=== PATIENT | male | born 1930 | race Caucasian/White ===

== ENCOUNTER 2017-03-21 05:20 | Observation (INO) | payer MEDICARE ==
[2017-03-21] MEDS ORDERED: NS 0.9% 1000 ML* 1,000 ML IV ONE (06:01)
[2017-03-21 06:17] LABS: Hematocrit 37 % (42-52); Hemoglobin 12.8 g/dl (14.0-18.0); Mean Corpuscular HGB Conc 34 g/dl (31-36); Mean Corpuscular Hemoglobin 33 pg (27-31); Mean Corpuscular Volume 97 fL (80-94); Mean Platelet Volume 8 um3 (7.4-10.4); Red Blood Count 3.83 10^6/ul (4.0-5.4); Red Cell Distribution Width 14 % (10.5-15); White Blood Count 11.9 10^3/ul (3.5-10.8)
[2017-03-21 06:34] LABS: Albumin 3.8 g/dL (3.2-5.2); BUN/Creatinine Ratio 19.8 (8-20); Calcium 8.5 mg/dL (8.6-10.3); EGFR African American 77.1 (>60); Globulin 2.5 g/dL (2-4); Potassium 3.9 mmol/L (3.5-5.0); Total Bilirubin 0.6 mg/dL (0.2-1.0); Total Protein 6.3 g/dL (6.4-8.9)
[2017-03-21 06:39] LABS: Troponin I 0.04 ng/mL (<0.04)
--- NOTE | 2017-03-21 06:52 | ED ---
Sunny Christian Tiffany, scribmaeve for Chris Schafer on 03/21/17 at 0604 . GI/ HPI - HPI Summary HPI Summary: This patient is an 86 year old M presenting to [facility] accompanied by with a chief complaint of unable to urinate since last night. The patient rates the pain 5/10 in severity. Symptoms aggravated by nothing. Symptoms alleviated by nothing. The last time he urinated was 20:00 last evening. Patient reports right flank pain, fever, and vomiting. Patient denies left flank pain. - History of Current Complaint Chief Complaint: EDUrogenitalProblems Time Seen by Provider: 03/21/17 05:23 Stated Complaint: UNABLE TO URINATE/FEVER Hx Obtained From: Patient Onset/Duration: Started Days Ago - Last night, Still Present Current Severity: Moderate Pain Intensity: 5 Associated Signs and Symptoms: Positive: Other: - Additional Pertinent History Primary Care Physician: [id number] - Allergy/Home Medications Allergies/Adverse Reactions: Allergies Allergy/AdvReac Type Severity Reaction Status Date / Time Atorvastatin [From Lipitor] AdvReac muscle Verified 08/21/15 22:49 cramping Erythromycin AdvReac all over Verified 08/21/15 22:49 body pain Metoclopramide AdvReac hand Verified 06/18/14 22:24 tremors PACEMAKER- NO MRIs AdvReac NO Uncoded 08/21/15 22:49 MRIs-PACEMAKER PMH/Surg Hx/FS Hx/Imm Hx Previously Healthy: No Endocrine/Hematology History: Reports: Hx Anticoagulant Therapy - Has been on Plavix and Aspirin, Hx Blood Transfusions Denies: Hx Blood Disorders, Hx Bone Marrow Disease, Hx Diabetes, Hx Systemic Lupus Erythematosus, Hx Sickle Cell Disease, Hx Thyroid Disease, Hx Anemia, Hx Unexplained Bleeding, Other Endocrine/Hematological Disorders Cardiovascular History: Reports: Hx Angina, Hx Auto Implanted Cardiovert Defib, Hx Cardiac Arrest, Hx Congestive Heart Failure, Hx Coronary Artery Disease, Hx Hypercholesterolemia, Hx Hypotension, Hx Hypertension, Hx Myocardial Infarction , Hx Pacemaker/ICD, Other Cardiovascular Problems/Disorders Denies: Hx Aneurysm, Hx Angioplasty, Hx Cardiomegaly, Hx Congenital Heart Disease, Hx Deep Vein Thrombosis, Hx Embolism, Hx Peripheral Vascular Disease, Hx Rheumatic Fever, Hx Syncope, Hx Valvular Heart Disease Respiratory History: Reports: Hx Chronic Bronchitis, Hx Pneumonia, Hx Pulmonary Edema, Hx Seasonal Allergies, Other Respiratory Problems/Disorders - PNA Denies: Hx Asthma, Hx Chronic Obstructive Pulmonary Disease (COPD), Hx Cystic Fibrosis, Hx Lung Cancer, Hx Pleural Effusion, Hx Pulmonary Embolism, Hx Sleep Apnea GI History: Reports: Hx Gall Bladder Disease - cholecystectomy, Hx Gastroesophageal Reflux Disease, Hx Hiatal Hernia, Other GI Disorders - inability to digest food Denies: Hx Cirrhosis, Hx Crohn's Disease, Hx Diverticulosis, Hx Gastrointestinal Bleed, Hx Irritable Bowel, Hx Jaundice, Hx Obstructive Bowel, Hx Ileostomy, Hx Pyloric Stenosis, Hx Ulcer History: Reports: Hx Benign Prostatic Hyperplasia, Other Problems/ Disorders - prostate surgery Denies: Hx Acute Renal Failure, Hx Chronic Renal Failure, Hx Dialysis, Hx Kidney Infection, Hx Kidney Stones, Hx Renal Disease Musculoskeletal History: Reports: Hx Arthritis, Hx Back Problems - herniated disk, Hx Congenital Bone Abnormalities - upper back, Hx Orthopedic Injury - left knee replaced, Other Musculoskeletal History - Total Knee Replacement Left, Denies: Hx Rheumatoid Arthritis, Hx Bursitis, Hx Fibromyalgia, Hx Gout, Hx Osteoporosis, Hx Scoliosis, Hx Tendonitis Sensory History: Reports: Hx Legally Blind, Hx Macular Degeneration, Hx Vision Problem Denies: Hx Cataracts, Hx Contacts or Glasses, Hx Eye Injury, Hx Eye Prosthesis, Hx Glaucoma, Hx Deafness, Hx Hearing Aid, Hx Hearing Problem, Other Sensory Impairments Opthamlomology History: Reports: Hx Legally Blind, Hx Macular Degeneration, Hx Vision Problem Denies: Hx Cataracts, Hx Contacts or Glasses, Hx Eye Injury, Hx Eye Prosthesis, Hx Glaucoma, Other Sensory Impairments Neurological History: Reports: Other Neuro Impairments/Disorders - laminectomy Denies: Hx Dementia, Hx Developmental Delay, Hx Headaches, Hx Migraine, Hx Nerve Disease, Hx Seizures, Hx Spinal Cord Injury, Hx Transient Ischemic Attacks (TIA) Psychiatric History: Denies: Hx Anxiety, Hx Attention Deficit Hyperactivity Disorder, Hx Eating Disorder, Hx Depression, Hx Panic Disorder, Hx Post Traumatic Stress Disorder, Hx Inpatient Treatment, Hx Community Mental Health Tx, Hx Schizophrenia, Hx Bipolar Disorder, Hx Suicide Attempt, Hx Substance Abuse, Other Psychiatric Issues/Disorders - Cancer History Cancer Type, 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 cholecystectomy 1994, hiatal hernia , CABG, Back Sx, Prostate Sx, Stents, Cardiac cath with bypass Hx Anesthesia Reactions: No Infectious Disease History: No Infectious Disease History: Denies: Hx Clostridium Difficile, Hx Hepatitis, Hx Human Immunodeficiency Virus (HIV), Hx of Known/Suspected MRSA, Hx Shingles, Hx Tuberculosis, Hx Known/ Suspected VRE, Traveled Outside the [place] in Last 30 Days - Family History Known Family History: Positive: Cardiac Disease - In both brothers - Social History Alcohol Use: None Hx Substance Use: No Substance Use Type: Reports: None Hx Tobacco Use: No Smoking Status (MU): Never Smoked Tobacco Review of Systems Positive: Fever Positive: Vomiting Positive: other - Unable to urinate Positive: Other - right flank pain; NEGATIVE: left flank pain All Other Systems Reviewed And Are Negative: Yes Physical Exam - Summary Physical Exam Summary: Appearance: Well appearing, no pain distress Skin: warm, dry, reflects adequate perfusion Head/face: normal Eyes: EOMI, ALTHEA ENT: normal Neck: supple, non-tender Respiratory: CTA, breath sounds present Cardiovascular: RRR, pulses symmetrical Abdomen: RLQ tenderness Bowel: present Musculoskeletal: normal, strength/ROM intact Neuro: normal, sensory motor intact, A&Ox3 Triage Information Reviewed: Yes Vital Signs On Initial Exam: Initial Vitals Temp Pulse Resp BP Pulse Ox 98 F 61 16 121/56 95 03/21/17 05:27 03/21/17 05:27 03/21/17 05:27 03/21/17 05:27 03/21/17 05:27 Vital Signs Reviewed: Yes Diagnostics - Vital Signs Vital Signs Temp Pulse Resp BP Pulse Ox 03/21/17 05:27 98 F 61 16 121/56 95 - Laboratory Lab Results: Lab Results 03/21/17 03/21/17 03/21/17 Range/Units 05:58 05:58 05:58 WBC 11.9 H (3.5-10.8) 10^3/ul RBC 3.83 L (4.0-5.4) 10^6/ul Hgb 12.8 L (14.0-18.0) g/dl Hct 37 L (42-52) % MCV 97 H (80-94) fL MCH 33 H (27-31) pg MCHC 34 (31-36) g/dl RDW 14 (10.5-15) % Plt Count 233 (150-450) 10^3/ul MPV 8 (7.4-10.4) um3 Neut % (Auto) 87.3 H (38-83) % Lymph % (Auto) 5.6 L (25-47) % Linn % (Auto) 6.7 (1-9) % Eos % (Auto) 0.1 (0-6) % Baso % (Auto) 0.3 (0-2) % Absolute Neuts (auto) 10.4 H (1.5-7.7) 10^3/ul Absolute Lymphs (auto) 0.7 L (1.0-4.8) 10^3/ul Absolute Monos (auto) 0.8 (0-0.8) 10^3/ul Absolute Eos (auto) 0 (0-0.6) 10^3/ul Absolute Basos (auto) 0 (0-0.2) 10^3/ul Absolute Nucleated RBC 0 10^3/ul Nucleated RBC % 0 INR (Anticoag Therapy) 2.29 H (0.77-1.02) APTT 41.4 H (26.0-36.3) seconds Sodium 132 L (133-145) mmol/L Potassium 3.9 (3.5-5.0) mmol/L Chloride 105 (101-111) mmol/L Carbon Dioxide 20 L (22-32) mmol/L Anion Gap 7 (2-11) mmol/L BUN 23 (6-24) mg/dL Creatinine 1.16 (0.67-1.17) mg/dL Est GFR ( Amer) 77.1 (>60) Est GFR (Non-Af Amer) 60.0 (>60) BUN/Creatinine Ratio 19.8 (8-20) Glucose 112 H (70-100) mg/dL Lactic Acid (0.5-2.0) mmol/L Calcium 8.5 L (8.6-10.3) mg/dL Total Bilirubin 0.60 (0.2-1.0) mg/dL AST 23 (13-39) U/L ALT 12 (7-52) U/L Alkaline Phosphatase 65 (34-104) U/L Troponin I 0.04 H* (<0.04) ng/mL Total Protein 6.3 L (6.4-8.9) g/dL Albumin 3.8 (3.2-5.2) g/dL Globulin 2.5 (2-4) g/dL Albumin/Globulin Ratio 1.5 (1-3) Lipase 21 (11.0-82.0) U/L 03/21/17 Range/Units 05:58 WBC (3.5-10.8) 10^3/ul RBC (4.0-5.4) 10^6/ul Hgb (14.0-18.0) g/dl Hct (42-52) % MCV (80-94) fL MCH (27-31) pg MCHC (31-36) g/dl RDW (10.5-15) % Plt Count (150-450) 10^3/ul MPV (7.4-10.4) um3 Neut % (Auto) (38-83) % Lymph % (Auto) (25-47) % Linn % (Auto) (1-9) % Eos % (Auto) (0-6) % Baso % (Auto) (0-2) % Absolute Neuts (auto) (1.5-7.7) 10^3/ul Absolute Lymphs (auto) (1.0-4.8) 10^3/ul Absolute Monos (auto) (0-0.8) 10^3/ul Absolute Eos (auto) (0-0.6) 10^3/ul Absolute Basos (auto) (0-0.2) 10^3/ul Absolute Nucleated RBC 10^3/ul Nucleated RBC % INR (Anticoag Therapy) (0.77-1.02) APTT (26.0-36.3) seconds Sodium (133-145) mmol/L Potassium (3.5-5.0) mmol/L Chloride (101-111) mmol/L Carbon Dioxide (22-32) mmol/L Anion Gap (2-11) mmol/L BUN (6-24) mg/dL Creatinine (0.67-1.17) mg/dL Est GFR ( Amer) (>60) Est GFR (Non-Af Amer) (>60) BUN/Creatinine Ratio (8-20) Glucose (70-100) mg/dL Lactic Acid 0.9 (0.5-2.0) mmol/L Calcium (8.6-10.3) mg/dL Total Bilirubin (0.2-1.0) mg/dL AST (13-39) U/L ALT (7-52) U/L Alkaline Phosphatase (34-104) U/L Troponin I (<0.04) ng/mL Total Protein (6.4-8.9) g/dL Albumin (3.2-5.2) g/dL Globulin (2-4) g/dL Albumin/Globulin Ratio (1-3) Lipase (11.0-82.0) U/L Result Diagrams: 03/21/17 05:58 03/21/17 05:58 Lab Statement: Any lab studies that have been ordered have been reviewed, and results considered in the medical decision making process. - EKG 06:29 Cardiac Rate: NL EKG Interpretation: 60 BPM. Pace rhythm GIGU Course/Dx - Course Course Of Treatment: This patient is an 86 year old M presenting to [facility] accompanied by with a chief complaint of unable to urinate since last night. An EKG reveals pace rhythm. Bloodwork/UA obtained. CT Abd/Pel results pending. Patient will be signed out to attending physician at shift change. - Diagnoses Differential Diagnoses - Male: Diverticulitis, Appendicitis, Renal Calculi, Urinary Tract Infection Provider Diagnoses: Abdominal pain Discharge - Discharge Plan Condition: Fair Disposition: OTHER Discharge Disposition Comment: Patient is signed out at shift change, awaiting CT Abd/Pel results. Referrals: Duy Peck MD [Primary Care Provider] - The documentation as recorded by the Sunny tejada Tiffany accurately reflects the service I personally performed and the decisions made by , Chris Schafer.
[2017-03-21] MEDS ORDERED: Iohexol 300* (CONTRAST) 10 ML SDV IV ONE (06:59)
[2017-03-21 09:26] LABS: Urine Bacteria Absent (Absent); Urine Bilirubin Negative (Negative); Urine Glucose Negative (Negative); Urine Nitrite Negative (Negative)
--- NOTE | 2017-03-21 10:04 | RAD ---
CLINICAL HISTORY: Right lower quadrant tenderness COMPARISON: March 31, 2016 TECHNIQUE: Multiple contiguous axial CT scans were obtained of the abdomen and pelvis after the administration of intravenous contrast. Coronal and sagittal multiplanar reformations are submitted for review. Oral contrast was administered. Delayed images were obtained through the abdomen and pelvis. FINDINGS: LUNG BASES: The lung bases are clear. LIVER: The liver is normal in shape, size, contour, and attenuation. BILE DUCTS: There is no intrahepatic or extrahepatic biliary dilatation. GALLBLADDER: The gallbladder is not visualized. Surgical clips are noted in the gallbladder fossa. PANCREAS: The pancreas is normal, without mass or ductal dilatation. SPLEEN: Normal in size and appearance. UPPER GI TRACT: Evaluation of the gastrointestinal tract is limited by incomplete gastric distention. There is post surgical change to the upper GI tract; the patient appears to be status post gastrojejunostomy, though the duodenum and proximal jejunum are patent and filled with contrast. There is mild distention of the proximal jejunum without obstruction. Oral contrast is noted distally to the colon SMALL BOWEL AND MESENTERY: As noted above, there is mild distention of the proximal jejunum without obstruction. COLON: There are multiple diverticula of the sigmoid colon. There is no pericolonic inflammatory change. There is a tubular, vermiform, hollow viscus that is blind ending, and originates from the cecum, consistent with a normal appendix. There is no periappendiceal inflammatory change. This is best seen on coronal images 48 through 52 ADRENALS: Normal bilaterally. KIDNEYS: There is a simple renal cysts on the right. 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 BLADDER: The bladder is smooth in contour. PELVIC ORGANS: The prostate gland is normal. The seminal vesicles are symmetric. AORTA: There is calcific atherosclerotic disease of the abdominal aorta and its branches, without aneurysmal dilatation IVC: Unremarkable LYMPH NODES: There is no lymphadenopathy by size criteria. ABDOMINAL WALL: There is no evidence for abdominal wall hernia. BONES AND SOFT TISSUES: Degenerative changes are noted of the spine OTHER: None IMPRESSION: 1. THERE IS POSTSURGICAL CHANGE TO THE UPPER GI TRACT. THERE IS MILD DISTENTION OF THE PROXIMAL JEJUNUM WITHOUT OBSTRUCTION. ORAL CONTRAST REACHES THE COLON. 2. ATHEROSCLEROSIS. 3. DIVERTICULOSIS
[2017-03-21] MEDS ORDERED: Ketorolac INJ* 30 MG/ML 1 ML VIAL IV ONE (11:23)
[2017-03-21] MEDS ORDERED: Ondansetron INJ* 2 MG/ML VIAL IV ONE (11:23)
[2017-03-21] MEDS ORDERED: Acetaminophen TAB* 325 MG PO PRN (13:27)
[2017-03-21] MEDS ORDERED: Nitroglycerin TAB 0.4 MG* 0.4 MG TAB SL PRN (13:42)
[2017-03-21] MEDS ORDERED: PROCHLORPERAZINE INJ 5 MG/ML 2 ML VIAL IV PRN (13:52)
--- NOTE | 2017-03-21 13:58 | RAD ---
HISTORY: Right flank pain COMPARISONS: January 12, 2017, March 23, 2016 VIEWS: 2: Frontal and lateral views of the chest. FINDINGS: CARDIOMEDIASTINAL SILHOUETTE: The cardiomediastinal silhouette is normal. ANISH: The anish are normal. PLEURA: The costophrenic angles are sharp. No pleural abnormalities are noted. LUNG PARENCHYMA: There is hyperinflation with flattening of the diaphragm and expansion of the AP diameter of the chest. ABDOMEN: The upper abdomen is clear. There is no subphrenic gas. BONES AND SOFT TISSUES: There is diffuse osteopenia. The patient is status post median sternotomy. OTHER: A left-sided pacemaker is noted. The configuration of the pacemaker leads is stable from multiple prior examinations. IMPRESSION: HYPERINFLATION. NO ACTIVE CARDIOPULMONARY DISEASE.
[2017-03-21] MEDS ORDERED: NS 0.9% 1000 ML* 1,000 ML IV SCH (14:00)
[2017-03-21] MEDS ORDERED: Amiodarone TAB* 200 MG PO SCH (14:00)
[2017-03-21] MEDS: Carvedilol TAB* 25 MG PO SCH ×2 (15:39→20:27)
--- NOTE | 2017-03-21 16:17 | ECHO ---
Patient: QUYEN GUTIERREZ Rec#: [id number] : 1930 Date: 03/21/2017 Age: 86y Height: 160.02 cm / 63.0 in Weight: 63.5 kg / 140.0 lbs Sex: M BSA: 1.66 Room#: 446 Admit Date#: 03/21/2017 Type: Inpatient Referring: Sonia Bryant Reading: Phoenix Ramos MD Public Relations Assistant: Perla Iraheta,MOLLYCS,RDMS CC: Duy Peck MD CC: Maximilian Guevara MD Transthoracic Echocardiogram Indication: Elevated Trop, Cardiomyopathy BP: 121/31 HR: 60 Rhythm: Paced Findings History: CAD, [place], CABG, PCI, HTN, HLD, CHF, AICD Technical Comments: The study quality is fair. Left Ventricle: The left ventricular chamber size is normal. Moderate concentric left ventricular hypertrophy is observed. Global left ventricular wall motion and contractility are within normal limits. Left ventricular systolic function is at the lower limits of normal. The estimated ejection fraction is 50-55%. There is an E to A reversal in the mitral valve flow pattern suggestive of diastolic dysfunction. Left Atrium: The left atrium is mildly dilated. Right Ventricle: The right ventricular chamber size and systolic function are within normal limits. The right ventricle wall thickness is mildly increased. A pacemaker wire is visualized in the right ventricle. Right Atrium: The right atrial cavity size is normal. A pacemaker wire is visualized in the right atrium. Aortic Valve: The aortic valve is trileaflet. The aortic valve leaflets are mildly thickened. There is aortic annular calcification. There is trace to mild aortic regurgitation. There is mild aortic stenosis. The mean gradient of the aortic valve is 13 mmHg. The aortic valve area, by VTI's, is calculated at 1.5 cm2. Mitral Valve: The mitral valve leaflets are mildly thickened. There is a trace of mitral regurgitation. There is no evidence of mitral stenosis. Tricuspid Valve: The tricuspid valve leaflets are normal. There is trace to mild tricuspid regurgitation. No pulmonary hypertension is noted. Pulmonic Valve: The pulmonic valve appears normal. There is trace to mild pulmonic regurgitation. Pericardium: There is no significant pericardial effusion. Aorta: The aortic root appears normal. There is no dilatation of the aortic arch. Pulmonary Artery: The main pulmonary artery is not well visualized. Venous: The inferior vena cava is not visualized. Conclusions Left ventricular systolic function is at the lower limits of normal. The estimated ejection fraction is 50-55%. Moderate concentric left ventricular hypertrophy is observed. The right ventricular chamber size and systolic function are within normal limits. A pacemaker wire is visualized in the right ventricle. The aortic valve leaflets are mildly thickened. There is mild aortic stenosis. The mean gradient of the aortic valve is 13 mmHg. There is trace to mild aortic regurgitation. There is a trace of mitral regurgitation. There is trace to mild tricuspid regurgitation. No pulmonary hypertension is noted. There is no significant pericardial effusion. Compared to study of 10/07/13, the LV function is much better. The mild is new Measurements Name Value Normal Range RVIDd (AP) 2D 3.2 cm (0.9 - 2.6) RVDdMajor (2D) 4.2 cm (2.2 - 4.4) RAd ISD 4CH 4.5 cm (3.4 - 4.9) RA (A4C)W 4.7 cm (2.9 - 4.6) IVSd (2D) 1.4 cm (0.6 - 1) LVPWd (2D) 1.4 cm (0.6 - 1) LVIDd (2D) 4.7 cm (3.6 - 5.4) LVIDs (2D) 3.5 cm - LV FS (2D) 25 % (25 - 45) Aortic Annulus 2 cm (1.4 - 2.6) Ao root diameter (2D) 3.1 cm (2.1 - 3.5) Ascending Ao 2.8 cm (2.1 - 3.4) Aortic arch 2.7 cm (1.8 - 3.4) LA dimension (AP) 2D 4 cm (2.3 - 3.8) LAd ISD 4CH 6.1 cm (2.9 - 5.3) LA ISD 4CH W 5.5 cm (2.5 - 4.5) Name Value Normal Range LA ESV SP 4CH (A/L) 95.89 ml - LA ESV SP 2CH (A/L) 29.84 ml - LA ESV BP (A/L) 66.22 ml - LA ESV BP (A/L) index 40 ml/m2 - LA ESV SP 4CH (MOD) 78.54 ml - LA ESV SP 2CH (MOD) 27.6 ml - Name Value Normal Range MV E-wave Vmax 0.7 m/sec - MV deceleration time 170 msec - MV A-wave Vmax 0.9 m/sec - MV E:A ratio 0.8 ratio - Name Value Normal Range AV Vmax 2.3 m/sec - AV VTI 48 cm - AV peak gradient 21 mmHg - AV mean gradient 13 mmHg - LVOT diameter 2 cm - LVOT Vmax 1 m/sec - LVOT VTI 23.5 cm - LVOT peak gradient 4 mmHg - LVOT mean gradient 2.3 mmHg - DOI (VTI) 0.5 ratio - JENNIE (continuity Vmax) 1.4 cm2 - JENNIE (continuity VTI) 1.5 cm2 - AR PHT 417.96 msec - AR peak gradient 36.61 mmHg - TEZ Vmax 0.7 m/sec - Name Value Normal Range TR Vmax 2.4 m/sec - TR peak gradient 23 mmHg - RAP 8 mmHg - RVSP 31 mmHg - Name Value Normal Range PV Vmax 0.8 m/sec - PV peak gradient 2.6 mmHg -
[2017-03-21] MEDS ORDERED: Warfarin TAB(*) 2.5 MG PO SCH (17:00)
--- NOTE | 2017-03-21 17:11 | HP ---
HISTORY AND PHYSICAL: DATE OF ADMISSION: 03/21/17 PROVIDER: Sonia Bryant NP PRIMARY CARE PROVIDER: Dr. Peck. * Attending Physician while in the Hospital: Conrado Jauregui MD (DICTATED BY SONIA BRYANT NP CHIEF COMPLAINT: Right flank pain, nausea. HISTORY OF PRESENT ILLNESS: Mr. Rodriguez is an 86-year-old male that presented to emergency room today for evaluation of difficulty urinating and right flank pain accompanied with some nausea and vomiting. Mr. Rodriguez reports that he has had right flank pain x1 week and he started with 2 episodes of vomiting yesterday and 1 episode today. He has a past medical history of ischemic cardiomyopathy. He is status post CABG with multiple stents. He does have a pacemaker. He does have a history of systolic heart failure. He does have a history of paroxysmal atrial fibrillation, for which he is on Coumadin for anticoagulation. He does report that he has a recent history of pneumonia which he states that he had for the month of January 2017. The patient states that he was unable to urinate and that is what brought him to the emergency room today. He does currently report that he is urinating fine and does have some residual right flank pain. He does report that he did have some nausea and did vomit while in the emergency room. He denies diarrhea. He denies chest pain. Denies shortness of breath. Denies cough. Denies chills. He does report that he has felt feverish over the last 2 days. He does report that he does have right lower abdominal pain and left lower abdominal pain. He denies any problems with constipation. States his last normal BM was yesterday. We were asked by the emergency room to evaluate this patient for admission due to right flank pain and elevated troponin. PAST MEDICAL HISTORY: 1. Ischemic cardiomyopathy. 2. Hypertension. 3. Hyperlipidemia. 4. GERD. 5. Paroxysmal atrial fibrillation, on Coumadin. 6. He is legally blind. 7. Congestive heart failure. PAST SURGICAL HISTORY: 1. Bypass in 2007. 2. Left total knee replacement. 3. Multiple cardiac stents. 4. Hiatal hernia repair x2. 5. Tonsillectomy. 6. Pacemaker. 7. Back surgery. 8. Cholecystectomy. HOME MEDICATIONS: 1. Amiodarone 100 mg. 2. Nitroglycerin 0.4 mg patch daily. 3. Reglan 10 mg p.o. daily. 4. Protonix 40 mg p.o. daily. 5. Zofran 4 mg p.o. q.6 hours p.r.n. 6. Nitroglycerin 0.4 sublingual q.5 minutes p.r.n. chest pain. 7. Inspra 12.5 mg p.o. daily. 8. Carvedilol 12.5 mg p.o. t.i.d. 9. Aspirin 81 mg p.o. daily. 10. Coumadin 5 mg p.o. Tuesday, , and Tuesday and Coumadin 2.5 mg Tuesday, Tuesday, Tuesday, and Tuesday. 11. Crestor 10 mg p.o. at h.s. ALLERGIES: 1. ATORVASTATIN. 2. ERYTHROMYCIN. 3. REGLAN. 4. He does have a pacemaker, so no MRIs. FAMILY HISTORY: Brother is at age 56 from an [facility]. No other medical history. SOCIAL HISTORY: The patient denies smoking. Denies alcohol or drug use. Surrogate decision maker is his , Yarelis Rodriguez. Her phone number is [phone]. REVIEW OF SYSTEMS: There is no documented fever. There has been no significant weight change. There was no double vision. There was no ear drainage. He denies any rhinorrhea. There is no sore throat. He denies having any chest pain. Denies shortness of breath. No nocturnal dyspnea. He does complain of right lower abdominal pain and right flank pain. He also complains of mild tenderness to the left lower abdomen. He does report nausea and does report he has vomited x3 yesterday and today. He does report that he was having difficulty urinating, which has resolved. There were no seizures, no loss of consciousness. No pruritus. No skin ulcerations. Review of 14 systems was completed and all others were negative. PHYSICAL EXAMINATION GENERAL: At this time, Mr. Rodriguez is an 86-year-old man, appears well, sitting on the stretcher. His cheeks are flushed. He does report that he has some mild right flank pain rated at 2. He states that it is sharp and constant. VITAL SIGNS: Blood pressure 127/44; heart rate is 60, he has a paced rhythm; oxygen saturation is 94%; respirations are 16; temp is 99.2 tympanic. HEENT: Head is atraumatic, normocephalic. Eyes: EOMs are intact. Sclerae anicteric, not pale. Oral mucosa appears to be mildly dry. No oropharyngeal erythema. NECK: Supple. LUNGS: Clear to auscultation bilaterally. No wheezes, rales, or rhonchi. CARDIAC: S1, S2. He has regular rate and rhythm. There are no rubs or gallops. ABDOMEN: Soft, flat. He does complain of tenderness to right lower quadrant and right CVA tenderness. Bowel sounds are present x4. He does also complain of some left lower quadrant abdominal pain on palpation. EXTREMITIES: Pulses are +2 throughout. He is moving all extremities. Strength is 5/5. There is no edema. NEUROLOGIC: He is awake. He is alert and oriented x3. Speech is clear. There is no focal deficits noted. SKIN: Intact. DIAGNOSTIC STUDIES/LABORATORY DATA: WBCs are 11.9, RBCs 3.83, hemoglobin 12.8 , hematocrit is 37, platelet count is 233,000. INR was 2.29. A PTT was 41.4. Sodium was 132, potassium 3.9, chloride 105, carbon dioxide was 20, BUN 23, creatinine 1.16, glucose was 112, lactic acid was 0.9, calcium was 8.5. AST 23 , ALT 12, alk phos is 65. Initial troponin at 0558 was 0.04. Repeat troponin at 11:30 was 0.08. Lipase is 21. Urine was clear. pH was 5.0. Specific gravity was 1.011. Urine protein was negative. Ketones were negative. Urine blood was +2. Urine nitrites were negative. Bilirubin was negative. Urobili was negative. Urine leukocyte esterase was negative. Urine WBC's was trace. Urine blood RBC's was 1+. Urine bacteria was absent. Urine glucose was also negative. EKG does show A-paced rhythm at a rate of 60. Chest x-ray was obtained. Radiology impression: Hyperinflation. No active cardiopulmonary disease. He did have a CT of the abdomen and pelvis. Radiology interpretation as follows : 1. There is postsurgical changes in the upper GI tract. There is mild distention of the proximal jejunum without obstruction. Oral contrast reaches the colon. Kidneys, there is a simple renal cyst on the right. 2. Atherosclerosis. 3. Diverticulosis. ASSESSMENT AND PLAN: Mr. Rodriguez is an 86-year-old male that presented to the emergency room today with complaints of difficulty urinating and right flank pain with nausea and vomiting. We were asked to evaluate due to his elevated troponin and right flank pain. He will be admitted under observation status for: 1. Right-sided flank pain. We will monitor. If the patient develops elevated temperature or if flank pain increases, we can consider placing the patient on antibiotics. Can also consider doing a KUB to look for a renal stone. We will give him gentle hydration with normal saline at 100 cc an hour. 2. Elevated troponin. The patient has a history of ischemic cardiomyopathy. He does have a pacemaker. We will obtain and trend serial troponins. I will get an echocardiogram. I suspect that this could be related to the demand of passing a renal calculi. 3. Nausea. We will continue to treat his nausea. We can give him Compazine p.r.n. as needed for nausea. 4. Hypertension. We will continue him on Coreg. 5. History of atrial fibrillation. We will continue on his amiodarone and Coreg. 6. History of congestive heart failure. We will continue on Inspra daily and monitor for shortness of breath. 7. Gastroesophageal reflux disease. We will continue on his Protonix p.o. daily. 8. FEN. We will place him on a clear liquid diet and advance as tolerated. 9. Code status. He is a DNR/DNI. 10. DVT prophylaxis. His risk assessment is high. He is currently on Coumadin. We will continue on Coumadin and monitor his INR level. His current INR is 2.29. We will repeat an INR in the a.m. If it is subtherapeutic, we will consider heparin subcu until the therapeutic level is met. He will admitted under observation status. TIME SPENT: Time spent on this admission was 60 minutes, greater than half the time was spent [id number] with the patient obtaining my history and physical; the other half of the time was spent going over the plan of care with the patient and implementing the plan of care. I did discuss my plan with my attending, Dr. Conrado Jauregui, and he is in agreement. SONIA RAKESH, BUSINESS LAW PROFESSOR [id number]/[facility] #: [id number] MTDJuan
[2017-03-21] MEDS ORDERED: Morphine INJ* 4 MG/ML 1 ML CARPUJECT IV PRN (18:00)
--- NOTE | 2017-03-21 18:18 | ED ---
Abraham Christian Angela, scribed for Teodoro Watts MD on 03/21/17 at 0711 . Progress - Progress Note Progress Note: This pt was signed out by Dr. Schafer, pending disposition, awaiting CT abdomen/ pelvis. Pt is an 86 y/o male presenting to [facility] c/o inability to void since last night. PMHx includes HTN, high cholesterol, multiple MN, pacemaker, afib. Mr. Rodriguez has had continued right flank pain here in the ED. CT did not reveal the source and, worrisomely, his troponin was a little elevated and doubled in the 3 hours between tests. i asked the hospitalists to consult on him. - Results/Orders Results/Orders: CT abdomen/pelvis, as read per radiologist: IMPRESSION: 1. There is postsurgical change to the upper GI tract. There is mild distention of the proximal jejunum without obstruction. Oral contrast reaches the colon. 2. Atherosclerosis. 3. Diverticulosis. Dr. Watts has reviewed this radiology report. Re-Evaluation - Re-Evaluation First Eval Re-Evaluation Time: 11:12 Comment: I reviewed the CT results with the pt. Course/Dx - Diagnoses Provider Diagnoses: Abdominal pain, Troponin level elevated The documentation as recorded by the Abraham tejada Angela accurately reflects the service I personally performed and the decisions made by me, Teodoro Watts MD.
[2017-03-21] MEDS: Ketorolac INJ* 15 MG/ML 1 ML VIAL IV PUSH PRN (19:17)
[2017-03-21] MEDS: ROSUVASTATIN 10 MG PO SCH (20:28)
[2017-03-21] MEDS: Omeprazole CAP* 20 MG PO SCH (21:57)
[2017-03-22 06:24] LABS: Hematocrit 34 % (42-52); Hemoglobin 11.6 g/dl (14.0-18.0); Mean Corpuscular HGB Conc 35 g/dl (31-36); Mean Corpuscular Hemoglobin 34 pg (27-31); Mean Corpuscular Volume 98 fL (80-94); Mean Platelet Volume 8 um3 (7.4-10.4); Red Blood Count 3.42 10^6/ul (4.0-5.4); Red Cell Distribution Width 14 % (10.5-15); White Blood Count 6.4 10^3/ul (3.5-10.8)
[2017-03-22 06:41] LABS: BUN/Creatinine Ratio 13.6 (8-20); Calcium 8.2 mg/dL (8.6-10.3); EGFR Non-African American 63.8 (>60); Magnesium 2.3 mg/dL (1.9-2.7); Potassium 3.8 mmol/L (3.5-5.0)
[2017-03-22] MEDS ORDERED: Omeprazole CAP* 20 MG PO SCH (07:30)
[2017-03-22] MEDS ORDERED: Aspirin EC Low Dose* 81 MG TAB.EC PO SCH (09:00)
[2017-03-22] MEDS ORDERED: Nitroglycerin 0.4 MG/HR PATCH* (10 MG) TRANSDERM SCH (09:00)
[2017-03-22] MEDS ORDERED: EPLERONONE 25 MG PO SCH (09:00)
--- NOTE | 2017-03-22 09:48 | PN ---
Subjective Date of Service: 03/22/17 Interval History: Patient seen and examined at bedside. Denies fever, chills, shortness of breath , chest discomfort, N/V/D, dysuria. Pt reports difficulty urinating and continued but improved right flank pain. Tele: Paced, 60. Family History: Unchanged from Admission Social History: Unchanged from Admission Past Medical History: Unchanged from Admission Objective Active Medications: Acetaminophen (Tylenol Tab*) 650 mg PO Q4H PRN Reason: FEVER/PAIN Amiodarone HCl (Cordarone Tab*) 100 [facility] Aspirin (Aspirin Ec Low Dose*) 81 mg PO [facility]ILY [facility] Carvedilol (Coreg Tab*) 12.5 mg PO TID [facility] Eplerenone (Inspra (Nf)) 12.5 mg PO [facility]ILY [facility] Ketorolac Tromethamine (Toradol Inj*) 15 mg IV PUSH Q6H PRN Reason: PAIN Morphine Sulfate (Morphine Inj (Syringe)*) 4 mg IV Q4H PRN Reason: PAIN - MODERATE TO SEVERE Nitroglycerin (Nitroglycerin 10 Mg Patch*) 1 patch TRANSDERM [facility]ILY [facility] Nitroglycerin (Nitroglycerin Tab 0.4 Mg*) 0.4 mg SL Q5M PRN Reason: ANGINA Omeprazole (Prilosec Cap*) 20 mg PO [facility] Pharmacy Profile Note (Coumadin Daily Reminder*) 1 note FOLLOW UP [facility] Prochlorperazine Edisylate (Compazine Inj*) 5 mg IV Q6H PRN Reason: NAUSEA/ VOMITING Rosuvastatin Calcium (Crestor (Nf)) 10 mg PO [facility] Warfarin Sodium (Coumadin Tab(*)) 2.5 mg PO SuMoWeFr@[facility]00 [facility] Warfarin Sodium (Coumadin Tab(*)) 5 mg PO TuThSa@[facility] Vital Signs - 8 hr 03/22/17 03/22/17 03:59 07:15 Temperature 98.0 F 98.0 F Pulse Rate 59 60 Respiratory 16 14 Rate Blood Pressure 124/48 118/40 (mmHg) O2 Sat by Pulse 93 95 Oximetry Oxygen Devices in Use Now: None Appearance: NAD, laying in bed Ears/Nose/Mouth/Throat: Mucous Membranes Moist Respiratory: Symmetrical Chest Expansion and Respiratory Effort, Clear to Auscultation Cardiovascular: NL Sounds; No Murmurs; No JVD, RRR Abdominal: NL Sounds; No Tenderness; No Distention Extremities: No Edema Skin: No Rash or Ulcers Neurological: Alert and Oriented x 3, NL Muscle Strength and Tone Lines/Tubes/Other Access: Clean, Dry and Intact Peripheral IV - site benign Nutrition: Taking PO's Result Diagrams: 03/22/17 05:57 03/22/17 05:57 Additional Lab and Data: Assess/Plan/Problems-Billing Assessment: Mr. Rodriugez is an 86 yo male with PMH significant for ischemic cardiomyopathy, HTN, HLD, GERD, PAfib, and CHF who presented to the emergency room with complaints of difficulty urinating, right flank pain, and N/V and was found to have an elevated troponin. - Patient Problems (1) Right flank pain Code(s): R10.9 - UNSPECIFIED ABDOMINAL PAIN SNOMED Code(s): 993807088 Comment: - Afebrile and no leukocytosis - ABD/Pelvis CT - NO acute findings - Will check a renal ultrasound (2) Nausea Code(s): R11.0 - NAUSEA SNOMED Code(s): 343872031 Comment: - Nausea and vomiting last night - Continue antiemetics (3) Elevated troponin Code(s): R74.8 - ABNORMAL LEVELS OF OTHER SERUM ENZYMES SNOMED Code(s): 684866837 Comment: - Troponin 0.08, 0.04, 0.04 - Denies chest pain - Suspect demand ischemia (4) GERD (gastroesophageal reflux disease) Code(s): K21.9 - GASTRO-ESOPHAGEAL REFLUX DISEASE WITHOUT ESOPHAGITIS SNOMED Code(s): 515584469 Comment: - Continue PPI (5) CHF (congestive heart failure) Code(s): I50.9 - HEART FAILURE, UNSPECIFIED SNOMED Code(s): 66874014 Comment: - No signs of exacerbation at this time - Echo - EF 50-55% - Daily weights and strict I+O's - Continue Inspra (6) Paroxysmal a-fib Code(s): I48.0 - PAROXYSMAL ATRIAL FIBRILLATION SNOMED Code(s): 623336038 Comment: - Continue warfarin, amiodarone and carvedilol. (7) HLD (hyperlipidemia) Code(s): E78.5 - HYPERLIPIDEMIA, UNSPECIFIED SNOMED Code(s): 58939189 Comment: - Continue statin (8) CAD (coronary artery disease) Code(s): I25.10 - ATHSCL HEART DISEASE OF [place] CORONARY ARTERY W/O ANG PCTRS SNOMED Code(s): 812952570 Comment: - Continue betablocker, statin, and ASA (9) HTN (hypertension) Code(s): I10 - ESSENTIAL (PRIMARY) HYPERTENSION SNOMED Code(s): 58575851 Comment: - Normotensive - Continue carvedilol (10) DVT prophylaxis Code(s): IKX9115 - SNOMED Code(s): 525193264 Comment: - Continue warfarin, therapeutic INR (11) DNR (do not resuscitate) Status and Disposition: OBV. Discharge to home when medically stable, possibly later today.
[2017-03-22] MEDS: Carvedilol TAB* 25 MG PO SCH ×3 (11:12→21:04)
[2017-03-22] MEDS: Omeprazole CAP* 20 MG PO SCH (11:13)
[2017-03-22] MEDS: Ketorolac INJ* 15 MG/ML 1 ML VIAL IV PUSH PRN (11:13)
--- NOTE | 2017-03-22 11:55 | RAD ---
INDICATION: Right flank pain COMPARISON: CT abdomen pelvis dated March 21, 2017 that shows a large right-sided renal cyst. TECHNIQUE: Real-time ultrasound examination of the right kidney including grayscale and Doppler color flow analysis. FINDINGS: The right kidney measures 11 x 4.9 x 5.8 cm. There is a 5.8 cm simple cyst in the right kidney. There is no hydronephrosis. IMPRESSION: No hydronephrosis or other acute abnormality of the right kidney.
[2017-03-22] MEDS ORDERED: Warfarin TAB(*) 5 MG PO SCH (17:00)
[2017-03-22] MEDS: ROSUVASTATIN 10 MG PO SCH (21:03)
[2017-03-22 23:50] VITALS: BP 133/43
--- NOTE | 2017-03-23 04:09 | DS ---
CC: Dr. Duy Peck * DISCHARGE SUMMARY: DATE OF ADMISSION: 03/21/17 DATE OF DISCHARGE: 03/22/17 ATTENDING PHYSICIAN: Dr. Iraj De Santiago * (dictated by Verna Mayers NP). PRIMARY CARE PROVIDER: Dr. Duy Peck. PRIMARY DIAGNOSES: 1. Right flank pain. 2. Nausea, resolved. SECONDARY DIAGNOSES: 1. Ischemic cardiomyopathy. 2. Hypertension. 3. Hyperlipidemia. 4. Gastroesophageal reflux disease. 5. Paroxysmal atrial fibrillation, on warfarin. 6. Legally blind. 7. Congestive heart failure. STUDIES WHILE IN THE HOSPITAL: 1. Abdomen and pelvis CT on 03/21/17. Radiologist's impression: There was postsurgical change to the upper GI tract. There is mild distention of the proximal jejunum without obstruction. Oral contrast reaches the colon. Atherosclerosis. Diverticulosis. 2. Chest x-ray from 03/21/17. Radiologist's impression: Hyperinflation. No active cardiopulmonary disease. 3. Transthoracic echocardiogram on 03/21/17. Clinical Trial Associate's conclusion: Left ventricular systolic function is at the lower limits of normal. The estimated ejection fraction is 50% to 55%. Moderate concentric left ventricular hypertrophy is observed. The right ventricular chamber size and systolic function are within normal limits. A pacemaker wire was visualized within the right ventricle. The aortic valve leaflets are mildly thickened. There is mild aortic stenosis, mean gradient of the aortic valve is 13 mmHg. Trace to mild aortic regurgitation, trace mitral regurgitation, trace to mild tricuspid regurgitation. No pulmonary hypertension is noted. There is no significant pericardial effusion. Compared to study of 10/07/13, the LV function is much better. The mild is new. 4. Right renal ultrasound from today. No hydronephrosis or other acute abnormality of the kidney is seen. DISCHARGE MEDICATIONS: Continued home medications: 1. Amiodarone 100 mg oral Tuesday, Tuesday, and Tuesday. 2. Nitroglycerin 0.4 mg an hour patch one patch transdermal daily. 3. Reglan 10 mg oral daily. 4. Protonix 40 mg oral daily. 5. Zofran 4 mg oral every 6 hours as needed for nausea. 6. Nitroglycerin tablets 0.4 mg sublingual every 5 minutes as needed for chest pain. 7. Inspra 12.5 mg oral daily. 8. Carvedilol 12.5 mg oral 3 times daily. 9. Aspirin 81 mg oral daily. 10. Warfarin 2.5 mg oral on Tuesday, Tuesday, Tuesday, Tuesday and 5 mg oral on Tuesday, , and Tuesday. 11. Crestor 10 mg oral daily at bedtime. HISTORY OF PRESENT ILLNESS/HOSPITAL COURSE: Mr. Rodriguez is an 86-year-old male with past medical history significant for ischemic cardiomyopathy, hypertension, hyperlipidemia, GERD, paroxysmal atrial fibrillation and congestive heart failure, who presented to the emergency room with complaints of difficulty urinating and right flank pain accompanied by nausea and vomiting. Mr. Rodriguez reported right flank pain for one week that started after 2 episodes of vomiting. The patient also is recovering from a pneumonia from January of this year. He reported feeling unable to urinate, but while in the emergency room was reporting that he was able to urinate fine and that his flank pain was improving. He continued to have some nausea and vomiting. While in the ER, he had a chest x-ray showing no acute findings. He had an abdomen and pelvis CT scan showing no acute findings. He had labs remarkable for slight leukocytosis with a white blood cell count of 11.9. He was found to have mildly elevated troponin of 0.04. He had a negative urinalysis and the hospitalists were asked to evaluate the patient for admission. While in the hospital, the patient's troponins were trended. He peaked at 0.08. He had a transthoracic echocardiogram showing no significant findings. He denied any chest pain. His right flank pain mostly resolved. He had a right renal ultrasound. There were no signs of renal calculi or hydronephrosis. The patient was afebrile, feeling better. He is tolerating a clear liquid diet after some initial nausea and vomiting upon admission. Mr. Rodriguez is stable for discharge to home later today if he is able to tolerate a regular diet. Vital signs are as follows: Temperature 98.2, heart rate 63, respiratory rate 16, O2 sat 95% on room air, blood pressure 115/72. DISCHARGE PLAN: Mr. Rodriguez will be discharged to home. Activity as tolerated. A heart healthy regular diet. He has a followup appointment with his primary care provider, Dr. Duy Peck on April 01 at 1:30 p.m. He will resume all of his usual home medications. I suspect the patient's right flank pain may have been caused by passing renal calculi. The flank pain is almost completely resolved and he is urinating without difficulty. This is a summarized report of a complex medical history and hospital stay. For further details, please see the entire medical record. Reviewed by INO REED 03/23/17 2037 [id number]/[facility] #: [id number] [facility]ALTH[facility]uan
== END 2017-03-22 23:50 | disposition home or self-care (01) ==
LOC: ED 05:20 → MEDTELE 13:27
PROVIDERS: ADMIT Internal Medicine; ATTEND Internal Medicine
DX: R10.84 Generalized abdominal pain (principal); R11.0 Nausea; I10 Essential (primary) hypertension; E78.5 Hyperlipidemia, unspecified; K21.9 Gastro-esophageal reflux disease without esophagitis; H54.8 Legal blindness, as defined in USA; I48.0 Paroxysmal atrial fibrillation; Z79.01 Long term (current) use of anticoagulants; I50.9 Heart failure, unspecified
CPT/HCPCS: 36415; 71020; 74177; 76775; 80048; 80053; 81003; 81015; 83605; 83690; 83735; 84484; 85025; 85610; 85730; 93005; 93306; 96361; 96374; 96375; 96376; 99284; A9270-GY; G0378; J0780; J1885; J2405; Q9967

== ENCOUNTER 2017-06-09 11:19 | Inpatient (IN) | payer MEDICARE ==
[2017-06-09] MEDS ORDERED: NS 0.9% 1000 ML* 1,000 ML IV ONE ×2 (11:42→12:53)
[2017-06-09 12:36] LABS: Hematocrit 38 % (42-52); Hemoglobin 12.4 g/dl (14.0-18.0); Mean Corpuscular HGB Conc 33 g/dl (31-36); Mean Corpuscular Hemoglobin 32 pg (27-31); Mean Corpuscular Volume 98 fL (80-94); Red Blood Count 3.83 10^6/ul (4.0-5.4); Red Cell Distribution Width 13 % (10.5-15); White Blood Count 23.7 10^3/ul (3.5-10.8)
[2017-06-09 12:38] LABS: EGFR Non-African American 47.5 (>60)
[2017-06-09] MEDS ORDERED: cefTRIAXone(*) 1 GM in NS 0.9% 50 ML* 50 ML IVPB ONE (12:52)
[2017-06-09 13:27] LABS: ABS Basophils 0.1 10^3/ul (0-0.2); ABS Eosinophils 0 10^3/ul (0-0.6); ABS Lymphocytes 1.3 10^3/ul (1.0-4.8); ABS Monocytes 2.7 10^3/ul (0-0.8); ABS Neutrophils 19.6 10^3/ul (1.5-7.7); ABS Nucleated RBC 0 10^3/ul; Eosinophil % 0 % (0-6); Lymphocyte % 5.3 % (25-47); Mean Platelet Volume 9 um3 (7.4-10.4); Nucleated Red Blood Cells % 0; Platelet Count 194 10^3/ul (150-450)
--- NOTE | 2017-06-09 13:38 | RAD ---
HISTORY: Shortness of breath COMPARISONS: March 21, 2017 VIEWS: 2: Frontal and lateral views of the chest. FINDINGS: CARDIOMEDIASTINAL SILHOUETTE: The cardiac silhouette is enlarged. The cardiomediastinal silhouette is otherwise normal. ANISH: The anish are normal. PLEURA: The costophrenic angles are sharp. No pleural abnormalities are noted. LUNG PARENCHYMA: There is patchy alveolar opacification of the retrocardiac left lower lobe. ABDOMEN: The upper abdomen is clear. There is no subphrenic gas. BONES AND SOFT TISSUES: The patient is status post median sternotomy. OTHER: A left-sided pacemaker is noted. IMPRESSION: CARDIOMEGALY WITH LEFT LOWER LOBE CONSOLIDATION. RECOMMEND FOLLOW-UP UNTIL RESOLUTION TO EXCLUDE UNDERLYING PULMONARY PARENCHYMAL PATHOLOGY.
[2017-06-09] MEDS ORDERED: guaiFENesin ER TAB 600 MG PO PRN (15:29)
[2017-06-09] MEDS ORDERED: Ondansetron INJ* 2 MG/ML VIAL IV PRN (15:30)
[2017-06-09 17:01] LABS: INR 2.15 (0.77-1.02)
[2017-06-09] MEDS: NS 0.9% 1000 ML* 1,000 ML IV SCH (17:15)
[2017-06-09] MEDS: Warfarin TAB(*) 5 MG PO SCH (17:16)
[2017-06-09] MEDS: metroNIDAZOLE IV 500 MG/100ML* 500 MG/100 ML BAG IVPB SCH (17:24)
[2017-06-09] MEDS: Metoclopramide TAB* 10 MG PO PRN (17:27)
[2017-06-09] MEDS: DOXYcycline IV* 100 MG in NS 0.9% 250 ML* 250 ML IVPB SCH (18:31)
[2017-06-09 19:49] LABS: Urine Appearance Clear; Urine Blood Negative (Negative); Urine Color Yellow; Urine Ketones Negative (Negative); Urine Protein Negative (Negative); Urine Specific Gravity 1.025 (1.010-1.030); Urine Urobilinogen Negative (Negative)
[2017-06-09] MEDS: Acetaminophen TAB* 325 MG PO PRN (19:51)
[2017-06-09] MEDS: CMCS: Rosuvastatin (NF) 10 MG TAB PO SCH (20:48)
[2017-06-09] MEDS: Carvedilol TAB* 6.25 MG PO SCH (20:48)
[2017-06-09] MEDS: guaiFENesin ER TAB 600 MG PO SCH (20:48)
--- NOTE | 2017-06-09 21:17 | HP ---
CC: Dr. Duy Peck * ADMISSION HISTORY AND PHYSICAL: DATE OF ADMISSION: 06/09/17 PRIMARY CARE PROVIDER: Dr. Duy Peck. MY ATTENDING WHILE IN THE HOSPITAL: Dr. Edelmira Dodd.* (DICTATED BY MONICA HIGGINS) CHIEF COMPLAINT: Chills and fatigue x12 hours. HISTORY OF PRESENT ILLNESS: Mr. Rodriguez is an 86-year-old male with past medical history significant for ischemic cardiomyopathy, last known EF 50% to 55 %, status post biventricular pacemaker; sick sinus syndrome; idiopathic gastroparesis; left bundle-branch block; paroxysmal atrial fibrillation and pneumonia, who presents with after he woke up at 3:30 this morning with whole body chills, inability to warm up and profuse sweating. The patient states that he was in his normal state of health yesterday, had absolutely no complaints. No fatigue, shortness of breath, cough, sputum production, chest pain, or other abnormalities. The patient had no functional limitations except occasional shortness of breath when walking uphills which has been stable for a long time. The patient states that he then went back to bed, woke up and had a sharp pain on the left side of his chest as well as subjective fevers. The patient also felt weak and unsteady on his feet, but had no vertigo, presyncope or falls. The patient had no palpitations. The patient occasionally has intermittent atrial fibrillation, which he is able to sense when it does happen. The patient has occasional difficulty swallowing, idiopathic gastroparesis for which he takes Reglan daily, but states that he has not had recent episodes of coughing after he eats, though he has had these previously. The patient takes his Reglan everyday in the evening to help him sleep. The patient states that his chest pain was sharp, constant, rated 5/10, no palliating and provoking factors and no associated nausea or shortness of breath. The patient states it feels a little bit like when he had a previous myocardial infarction, but that he cannot say definitely that it does that his most prominent heart attack, presented with pain in his back. The patient denied recent URI symptoms, recent exposure to anybody with flu. The patient has a pulmonology appointment next week for pulmonary function testing because he is on amiodarone, but has no recent changes in his ability to breathe. No dry cough or any other signs of interstitial lung disease. The patient denies any recent leg swelling, increased dyspnea on exertion or other signs of CHF exacerbation. The patient on chest x-ray had a large infiltrate in his left lower lobe and we were asked to evaluate for admission. The patient had hypotension while in the emergency department at 77/27 which resolved with fluid and the removal of the patient's nitroglycerin patch. 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 PAST SURGICAL HISTORY: CABG in 2007, left total knee arthroplasty, cardiac stenting, hiatal hernia repair x2, tonsillectomy, pacemaker with addition of biventricular leads and secondary procedure, unknown back surgery, cholecystectomy. MEDICATIONS: 1. Carvedilol 12.5 mg p.o. t.i.d. 2. Pantoprazole 40 mg p.o. daily. 3. Warfarin 5 mg p.o. Tuesday, Tuesday, Tuesday, , and Tuesday; warfarin 2.5 mg Tuesday and Tuesday. 4. Zofran 4 mg p.o. q.6 hours as needed. 5. Nitroglycerin 0.4 mg sublingual q.5 minutes as needed for chest pain. 6. Rosuvastatin 10 mg p.o. at bedtime. 7. Eplerenone 12.5 mg p.o. daily. 8. Aspirin 81 mg p.o. daily. 9. Amiodarone 100 mg p.o. Tuesday and Tuesday. 10. Reglan 10 mg p.o. daily as needed. 11. Ventolin 2 puffs inhalation q.i.d. as needed. 12. Skelaxin 400 mg p.o. t.i.d. as needed. 13. Vitamin B12 1000 mcg IM monthly. 14. Mucinex 600 mg p.o. b.i.d. as needed. ALLERGIES: LIPITOR, ERYTHROMYCIN, dystonic reaction to REGLAN. The patient is unable to get MRIs due to his pacemaker. FAMILY HISTORY: The patient's mother of pulmonary embolism. The patient' s father of CHF and emphysema. The patient had an aunt with breast cancer. The patient had a brother who of an FL at 56. The patient had another brother who at 84 of dementia. The patient had another brother with PE. The patient had a sister who of lymphoma. The patient's son has diabetes mellitus type 2. SOCIAL HISTORY: The patient has never smoked, drank, or used drugs. 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 The patient is and has 2 adult children. REVIEW OF SYSTEMS: A 14-point review of systems was reviewed and is negative except as above in the HPI. PHYSICAL EXAMINATION GENERAL: The patient is an 86-year-old male who appears stated age and sitting comfortably in bed, in no acute distress with no increased risk of breathing. VITAL SIGNS: At the time of examination, temperature 97.9, pulse rate 60, respiratory rate 22, oxygen saturation 95% on room air, blood pressure 105/48. HEENT: Head: Normocephalic and atraumatic. Sclerae anicteric. No conjunctival injection. Nasal mucosa moist. Oral mucosa moist. No pharyngeal erythema. Postnasal drainage is noted. No exudates. NECK: Supple, nontender. No lymphadenopathy. No carotid bruit auscultated. RESPIRATORY: Crackles heard in the left lower lobe. Good air exchange bilaterally. No other adventitious lung sounds. CARDIAC: Regular rate and rhythm. No clicks, murmurs, gallops, or rubs. Pulses 2+ in the bilateral dorsalis pedis, posterior tibialis, and radial areas. No bilateral lower extremity edema noted. ABDOMEN: Soft. Tenderness to deep palpation over the right lower quadrant. The patient states this is a chronic problem. No hepatosplenomegaly. No abdominal bruits auscultated. Bowel sounds present and normoactive in all 4 quadrants. GENITOURINARY: No suprapubic or CVA tenderness. NEUROLOGIC: Cranial nerves II through XII intact except that the patient has visual field deficits consistent with macular degeneration. Reflexes 2+ throughout, no focality. Downgoing Babinski's bilaterally. SKIN: Clean, dry, and intact. No rash. PSYCHIATRIC: Very pleasant and cooperative. LABORATORY DATA: White blood cell count 23.7, hemoglobin 12.4, hematocrit 38, MCV 98, MCH 32, platelet count 194. Sodium 134, potassium 3.7, chloride 104, carbon dioxide 23, anion gap 7, BUN 20, creatinine 1.42, glucose 102, lactic acid 1.8, calcium 8.7. Bilirubin 0.9, AST 27, ALT 18, alkaline phosphatase 67. Creatinine kinase 44. Troponin I 0.01. CRP 12.85. BNP 362. Total protein 6.1, albumin 3.7, globulin 2.4, albumin/globulin ratio 1.5. Influenza A and B negative. DIAGNOSTIC STUDIES: Chest x-ray read as cardiomegaly with left lower lobe consolidation. Recommend followup until resolution of underlying pulmonary parenchymal pathology. Electrocardiogram from 06/09/16 shows left bundle-branch block, ST depression in V2, not present on previous EKG from March 2017, inverted T-waves in V1 and V2, QTC of 473, extreme axis deviation, pacer spikes consistent with biventricular pacing. No other abnormalities. ASSESSMENT AND PLAN: Impression: Mr. Rodriguez is an 86-year-old male with past medical history significant for ischemic cardiomyopathy, EF 50% to 55%; hypertension; hyperlipidemia; atrial fibrillation; left bundle-branch block; pneumonia; who presents with chills and weakness with a new consolidation on chest x-ray consistent with left lower lobe pneumonia. The patient had hypotension while in the emergency department and hemodynamically unstable at this time. The patient will be admitted to the hospital for antibiotics, supportive care and to rule out myocardial infarction due to chest pain. 1. Left lower lobe pneumonia. The patient has white blood cell count, hypotension, leukocytosis, and consolidation on chest x-ray consistent with left lower lobe pneumonia. The patient has idiopathic gastroparesis and though he has not recently experienced this, has a history of coughing while swallowing. The patient is a high risk for aspiration pneumonia. We will treat with ceftriaxone, Flagyl, and doxycycline to cover community-acquired and aspiration type pneumonias. We will obtain a sputum culture if possible and Legionella and Strep pneumo, urine antigens. The patient will continue with fluids at 100 mL an hour due to hypotension for a total of 2 bags will use judiciously due to the patient's congestive heart failure. The patient has no influenza. The patient has not recently been in the hospital and not covered for hospital-acquired organisms. 2. Chest pain. The patient had chest pain, which could be cardiac in origin. The patient has significant risk factors; however, the patient has other explanation for his chest pain including left lower lobe pneumonia. The patient would cycle troponins x3. The patient has one new ST depression in V2; however, the patient has left bundle-branch block rendering his ST segments difficult to interpret. We will repeat EKG in the morning. We will remove the patient's nitro patch due to hypotension and treat angina as they occurs on an as needed basis. Continue the patient's Crestor, aspirin. 3. Congestive heart failure, ejection fraction 50% to 55%, diastolic dysfunction. The patient does not appear to be in exacerbation at this time. The patient has instruction from his jig builder helper to take his torsemide if his weight increases greater than 172 pounds. The patient currently states he is 158 pounds. We will weigh the patient daily and have strict I's and O's. We will diurese as needed. 4. Hypertension. The patient is currently hypotensive. We will continue the patient's carvedilol to avoid rebound angina. We will hold nitroglycerin patch and eplerenone at this time. 5. Atrial fibrillation. The patient is anticoagulated with warfarin. The patient did not have an INR drawn in the ER, this was drawn now and tomorrow morning. The patient is on amiodarone for rhythm control. The patient is also paced. The patient is on carvedilol for rate control. The patient slips in and out of atrial fibrillation and can feel when this happens and has not had any recent episodes of palpitations. We will monitor on telemetry and monitor warfarin dose and several new drugs which may interfere with therapeutic range. 6. Gastroparesis. Continue Reglan as needed. This appears relative to aspiration pneumonia. 7. Benign prostatic hyperplasia. We will draw a urinalysis and urine culture. The patient denies any recent changes in his urinary frequency or difficulty with urination. 8. Macular degeneration. The patient is legally blind. The patient is on a therapy for this. 9. DVT prophylaxis: The patient is on warfarin. The patient is high risk. 10. Code status: The patient would like to be a DNR. The patient like his surrogate decision maker to be his , Yarelis Rodriguez. 11. FEN: The patient will have a heart-healthy diet without caffeine and fluids as above. TIME SPENT: Approximately 60 minutes was spent on this admission, 30 of which was spent [id number] with the patient obtaining history and physical and discussing the treatment plan. This plan has been discussed with my attending, Dr. Edelmira Dodd, and she is in agreement. MONICA HIGGINS [id number]/[facility] #: [id number] BARNEY
[2017-06-10] MEDS: metroNIDAZOLE IV 500 MG/100ML* 500 MG/100 ML BAG IVPB SCH ×2 (04:57→17:03)
[2017-06-10] MEDS: NS 0.9% 1000 ML* 1,000 ML IV SCH (05:01)
[2017-06-10 06:02] LABS: Hematocrit 32 % (42-52); Hemoglobin 10.7 g/dl (14.0-18.0); Mean Corpuscular HGB Conc 34 g/dl (31-36); Mean Corpuscular Hemoglobin 33 pg (27-31); Mean Corpuscular Volume 99 fL (80-94); Mean Platelet Volume 9 um3 (7.4-10.4); Platelet Count 171 10^3/ul (150-450); Red Blood Count 3.22 10^6/ul (4.0-5.4); Red Cell Distribution Width 14 % (10.5-15); White Blood Count 20.9 10^3/ul (3.5-10.8)
[2017-06-10] MEDS: DOXYcycline IV* 100 MG in NS 0.9% 250 ML* 250 ML IVPB SCH ×2 (06:04→18:38)
[2017-06-10 06:15] LABS: INR 2.58 (0.77-1.02)
[2017-06-10 06:29] LABS: EGFR Non-African American 59.4 (>60)
[2017-06-10 06:38] LABS: ABS Basophils 0 10^3/ul (0-0.2); ABS Eosinophils 0.1 10^3/ul (0-0.6); ABS Lymphocytes 2.4 10^3/ul (1.0-4.8); ABS Monocytes 1.6 10^3/ul (0-0.8); ABS Neutrophils 16.8 10^3/ul (1.5-7.7); ABS Nucleated RBC 0 10^3/ul; Eosinophil % 0.3 % (0-6); Lymphocyte % 11.3 % (25-47); Nucleated Red Blood Cells % 0
--- NOTE | 2017-06-10 08:25 | ED ---
Abraham Christian Angela, scribed for Amari Mayorga MD on 06/09/17 at 1144 . HPI Chest Pain - HPI Summary HPI Summary: This pt is a 86 y/o male [facility]/o chest pain and chills. Pt reports he woke up at 03:00 this morning feeling cold, with chills, nausea and with dry heaves. He notes that he now feels like he is "warming up." Pt additionally reports cough and some SOB. Denies fever, diarrhea, constipation. PMHx includes CHF, CAD s/p CABG, HTN, FL s/p stents. - History of Current Complaint Chief Complaint: EDChestPainROMI Hx Obtained From: Patient Onset/Duration: Started Hours Ago, Still Present Timing: Lasting Hours Current Severity: Moderate Pain Intensity: 4 Pain Scale Used: 0-10 Numeric Chest Pain Location: Diffuse Chest Pain Radiates: No Aggravating Factor(s): Nothing Alleviating Factor(s): Nothing Associated Signs and Symptoms: Positive: Shortness of Breath, Chills, Nausea, Cough. Negative: Fever - Additional Pertinent History Primary Care Physician: [id number] - Allergy/Home Medications Allergies/Adverse Reactions: Allergies Allergy/AdvReac Type Severity Reaction Status Date / Time MS Atorvastatin AdvReac muscle Verified 08/21/15 22:49 [From Lipitor] cramping MS Erythromycin AdvReac all over Verified 08/21/15 22:49 [Erythromycin] body pain MS Metoclopramide AdvReac hand Verified 06/18/14 22:24 [Metoclopramide] tremors PACEMAKER- NO MRIs AdvReac NO Uncoded 08/21/15 22:49 MRIs-PACEMAKER Home Medications: Home Medications Albuterol HFA INHALER* [Ventolin HFA Inhaler*] 2 puff INH QID PRN 06/09/17 [ History Confirmed 06/09/17] Cyanocobalamin INJ * [Vitamin B12 INJ *] 1,000 mcg IM MONTHLY 06/09/17 [History Confirmed 06/09/17] Metaxalone 400 mg PO TID PRN 06/09/17 [History Confirmed 06/09/17] guaiFENesin ER TAB [Mucinex*] 600 mg PO BID PRN 06/09/17 [History Confirmed 11/19] PMH/Surg Hx/FS Hx/Imm Hx Endocrine/Hematology History: Reports: Hx Anticoagulant Therapy - Has been on Plavix and Aspirin, Hx Blood Transfusions Denies: Hx Blood Disorders, Hx Bone Marrow Disease, Hx Diabetes, Hx Systemic Lupus Erythematosus, Hx Sickle Cell Disease, Hx Thyroid Disease, Hx Anemia, Hx Unexplained Bleeding, Other Endocrine/Hematological Disorders Cardiovascular History: Reports: Hx Angina, Hx Auto Implanted Cardiovert Defib, Hx Cardiac Arrest, Hx Congestive Heart Failure, Hx Coronary Artery Disease, Hx Hypercholesterolemia, Hx Hypotension, Hx Hypertension, Hx Myocardial Infarction , Hx Pacemaker/ICD, Other Cardiovascular Problems/Disorders - ischemic cardiomyopathy Denies: Hx Aneurysm, Hx Angioplasty, Hx Cardiomegaly, Hx Congenital Heart Disease, Hx Deep Vein Thrombosis, Hx Embolism, Hx Peripheral Vascular Disease, Hx Rheumatic Fever, Hx Syncope, Hx Valvular Heart Disease Respiratory History: Reports: Hx Chronic Bronchitis, Hx Pneumonia, Hx Pulmonary Edema, Hx Seasonal Allergies, Other Respiratory Problems/Disorders - PNA Denies: Hx Asthma, Hx Chronic Obstructive Pulmonary Disease (COPD), Hx Cystic Fibrosis, Hx Lung Cancer, Hx Pleural Effusion, Hx Pulmonary Embolism, Hx Sleep Apnea GI History: Reports: Hx Gall Bladder Disease - cholecystectomy, Hx Gastroesophageal Reflux Disease, Hx Hiatal Hernia - repair x2, Other GI Disorders - inability to digest food Denies: Hx Cirrhosis, Hx Crohn's Disease, Hx Diverticulosis, Hx Gastrointestinal Bleed, Hx Irritable Bowel, Hx Jaundice, Hx Obstructive Bowel, Hx Ileostomy, Hx Pyloric Stenosis, Hx Ulcer History: Reports: Hx Benign Prostatic Hyperplasia, Other Problems/ Disorders - prostate surgery Denies: Hx Acute Renal Failure, Hx Chronic Renal Failure, Hx Dialysis, Hx Kidney Infection, Hx Kidney Stones, Hx Renal Disease Musculoskeletal History: Reports: Hx Arthritis, Hx Back Problems - herniated disk, Hx Congenital Bone Abnormalities - upper back, Hx Orthopedic Injury - left knee replaced, Other Musculoskeletal History - Total Knee Replacement Left, Denies: Hx Rheumatoid Arthritis, Hx Bursitis, Hx Fibromyalgia, Hx Gout, Hx Osteoporosis, Hx Scoliosis, Hx Tendonitis Sensory History: Reports: Hx Legally Blind, Hx Macular Degeneration, Hx Vision Problem Denies: Hx Cataracts, Hx Contacts or Glasses, Hx Eye Injury, Hx Eye Prosthesis, Hx Glaucoma, Hx Deafness, Hx Hearing Aid, Hx Hearing Problem, Other Sensory Impairments Opthamlomology History: Reports: Hx Legally Blind, Hx Macular Degeneration, Hx Vision Problem Denies: Hx Cataracts, Hx Contacts or Glasses, Hx Eye Injury, Hx Eye Prosthesis, Hx Glaucoma, Other Sensory Impairments Neurological History: Reports: Other Neuro Impairments/Disorders - laminectomy Denies: Hx Dementia, Hx Developmental Delay, Hx Headaches, Hx Migraine, Hx Nerve Disease, Hx Seizures, Hx Spinal Cord Injury, Hx Transient Ischemic Attacks (TIA) Psychiatric History: Denies: Hx Anxiety, Hx Attention Deficit Hyperactivity Disorder, Hx Eating Disorder, Hx Depression, Hx Panic Disorder, Hx Post Traumatic Stress Disorder, Hx Inpatient Treatment, Hx Community Mental Health Tx, Hx Schizophrenia, Hx Bipolar Disorder, Hx Suicide Attempt, Hx Substance Abuse, Other Psychiatric Issues/Disorders - Cancer History Cancer Type, 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 cholecystectomy 1994, hiatal hernia , CABG, Back Sx, Prostate Sx, Stents, Cardiac cath with bypass Hx Anesthesia Reactions: No Infectious Disease History: No Infectious Disease History: Denies: Hx Clostridium Difficile, Hx Hepatitis, Hx Human Immunodeficiency Virus (HIV), Hx of Known/Suspected MRSA, Hx Shingles, Hx Tuberculosis, Hx Known/ Suspected VRE, Traveled Outside the [place] in Last 30 Days - Family History Known Family History: Positive: Cardiac Disease - In both brothers - Social History Alcohol Use: None Hx Substance Use: No Substance Use Type: Reports: None Hx Tobacco Use: No Smoking Status (MU): Never Smoked Tobacco Review of Systems Positive: Chills. Negative: Fever Positive: Chest Pain Positive: Shortness Of Breath, Cough Positive: Nausea. Negative: Diarrhea, Other - constipation All Other Systems Reviewed And Are Negative: Yes Physical Exam - Summary Physical Exam Summary: VITAL SIGNS: Reviewed. GENERAL: Patient is a well-developed and nourished male who is lying comfortable in the stretcher. Patient is not in any acute respiratory distress. HEAD AND FACE: No signs of trauma. No ecchymosis, hematomas or skull depressions. No sinus tenderness. EYES: PERRLA, EOMI x 2, No injected conjunctiva, no nystagmus. EARS: Hearing grossly intact. Ear canals and tympanic membranes are within normal limits. MOUTH: Oropharynx within normal limits. NECK: Supple, trachea is midline, no adenopathy, no JVD, no carotid bruit, no c- spine tenderness, neck with full ROM. CHEST: Symmetric, no tenderness at palpation LUNGS: Bilateral crackles in the lungs. CVS: Regular rate and rhythm, S1 and S2 present, no murmurs or gallops appreciated. ABDOMEN: Soft, non-tender. No signs of distention. No rebound no guarding, and no masses palpated. Bowel sounds are normal. EXTREMITIES: FROM in all major joints, no edema, no cyanosis or clubbing. NEURO: Alert and oriented x 3. No acute neurological deficits. Speech is normal and follows commands. SKIN: Dry and warm Triage Information Reviewed: Yes Vital Signs On Initial Exam: Initial Vitals Temp Pulse Resp BP Pulse Ox 97.9 F 62 20 78/28 91 06/09/17 11:31 06/09/17 11:31 06/09/17 11:31 06/09/17 11:31 06/09/17 11:31 Vital Signs Reviewed: Yes Diagnostics - Vital Signs Vital Signs Temp Pulse Resp BP Pulse Ox 06/09/17 11:31 97.9 F 62 20 78/28 91 - Laboratory Result Diagrams: 06/09/17 12:04 06/09/17 12:04 Lab Statement: Any lab studies that have been ordered have been reviewed, and results considered in the medical decision making process. - Radiology Chest XR Xray Interpretation: Positive (See Comments) - IMPRESSION: Cardiomegaly with left lower lobe consolidation. Recommend follow-up until resolution to exclude underlying pulmonary parenchymal pathology. Dr. Mayorga has reviewed this radiology report. Radiology Interpretation Completed By: Radiologist - EKG 11:49 Cardiac Rate: NL EKG Interpretation: Dual paced rhythm at 60 bpm. EKG Comparison: No Significant Change - similar to prior EKG on 03/21/17. Chest Pain Course/Dx - Course Assessment/Plan: This pt is a 86 y/o male [facility] c/o chest pain and chills. Pt reports he woke up at 03:00 this morning feeling cold, with chills, nausea and with dry heaves. He notes that he now feels like he is "warming up." Pt additionally reports cough and some SOB. Denies fever, diarrhea , constipation. PMHx includes CHF, CAD s/p CABG, HTN, FL s/p stents. Test results without any significant abnormalities except WBC of 23.7, CRP of 12.85. Influenza A and B are both negative. Chest XR: Cardiomegaly with left lower lobe consolidation. Recommend follow-up until resolution to exclude underlying pulmonary parenchymal pathology. Since the pt has a fever, productive cough, SOB, and increased WBC, I believe the pt has pneumonia. Pt was started on Rocephin and azithromycin. At this time I discussed the test results and findings with Dr. Dodd, hospitalist, who accepted the pt for admission. Pt is hemodynamically stable, alert and oriented x3. - Diagnoses Provider Diagnoses: Pneumonia - Provider Notifications Discussed Care Of Patient With: Edelmira Dodd Time Discussed With Above Provider: 13:53 Instructed by Provider To: Other - I discussed pt care with Dr. Dodd, hospitalist, who has agreed to admit the pt. Discharge - Discharge Plan Condition: Stable Disposition: ADMITTED TO [facility] The documentation as recorded by the Abraham tejada Angela accurately reflects the service I personally performed and the decisions made by me, Amari Mayorga MD.
[2017-06-10] MEDS ORDERED: Amiodarone TAB* 200 MG PO SCH (09:00)
[2017-06-10] MEDS: guaiFENesin ER TAB 600 MG PO SCH ×2 (10:23→20:58)
[2017-06-10] MEDS: Carvedilol TAB* 6.25 MG PO SCH ×3 (10:23→20:58)
[2017-06-10] MEDS: Aspirin EC Low Dose* 81 MG TAB.EC PO SCH (10:23)
[2017-06-10] MEDS: CMCS: Pantoprazole TAB (NF) 40 MG TAB PO SCH (11:41)
[2017-06-10] MEDS: Metoclopramide TAB* 10 MG PO PRN ×2 (11:41→17:13)
[2017-06-10] MEDS ORDERED: cefTRIAXone(*) 1 GM in NS 0.9% 50 ML* 50 ML IVPB SCH (12:00)
[2017-06-10] MEDS ORDERED: Warfarin TAB(*) 2.5 MG PO SCH (17:00)
--- NOTE | 2017-06-10 17:01 | PN ---
Subjective Date of Service: 06/10/17 Interval History: Patient feels better today. Worsening cough with intermittent production. Nausea with dry heaving which responded to reglan. Continued but slightly improved fatigue. Patient denies F/C, abdominal pain, diarrhea, CP, SOB, dysuria , or other pain. Family History: Unchanged from Admission Social History: Unchanged from Admission Past Medical History: Unchanged from Admission Objective Active Medications: Acetaminophen (Tylenol Tab*) 650 mg PO Q6H PRN PRN Reason: FEVER/PAIN Last Admin: 06/09/17 19:51 Dose: 650 mg Amiodarone HCl (Cordarone Tab*) 100 mg PO MoFr@0900 [facility] Last Admin: 06/10/17 10:21 Dose: 100 mg Aspirin (Aspirin Ec Low Dose*) 81 mg PO DAILY [facility] Last Admin: 06/10/17 10:23 Dose: 81 mg Carvedilol (Coreg Tab*) 12.5 mg PO TID [facility] Last Admin: 06/10/17 14:42 Dose: 12.5 mg Guaifenesin (Mucinex*) 600 mg PO BID [facility] Last Admin: 06/10/17 10:23 Dose: 600 mg Doxycycline Hyclate 100 mg/ (Sodium Chloride) 250 mls @ 250 mls/hr IVPB Q12H [facility] Last Admin: 06/10/17 06:04 Dose: 250 mls/hr Metronidazole/Sodium Chloride (Flagyl 500 Mg Ivpb*) 500 mg in 100 mls @ 100 mls /hr IVPB Q12H [facility] Last Admin: 06/10/17 04:57 Dose: 100 mls/hr Sodium Chloride (Ns 0.9% 1000 Ml*) 1,000 mls @ 100 mls/hr IV PER RATE [facility] Stop: 06/11/17 01:29 Last Admin: 06/10/17 05:01 Dose: 100 mls/hr Ceftriaxone Sodium 1 gm/ (Sodium Chloride) 50 mls @ 200 mls/hr IVPB Q24H [facility] Last Admin: 06/10/17 11:41 Dose: 200 mls/hr Melatonin (Melatonin (Nf)) 3 mg PO BEDTIME [facility] Metoclopramide HCl (Reglan Tab*) 10 mg PO AC PRN PRN Reason: NAUSEA Ondansetron HCl (Zofran Inj*) 4 mg IV Q6H PRN PRN Reason: NAUSEA Last Admin: 06/10/17 08:30 Dose: 4 mg Pantoprazole Sodium (Protonix Tab (Nf)) 40 mg PO DAILY [facility] Last Admin: 06/10/17 11:41 Dose: 40 mg Rosuvastatin Calcium (Crestor (Nf)) 10 mg PO BEDTIME [facility] PRN Reason: Protocol Last Admin: 06/09/17 20:48 Dose: 10 mg Warfarin Sodium (Coumadin Tab(*)) 2.5 mg PO MoFr@1700 [facility] PRN Reason: Protocol Warfarin Sodium (Coumadin Tab(*)) 5 mg PO SuTuWeThSa@1700 [facility] PRN Reason: Protocol Last Admin: 06/09/17 17:16 Dose: 5 mg Vital Signs - 8 hr 06/10/17 06/10/17 11:17 15:26 Temperature 98.1 F 98.4 F Pulse Rate 60 60 Respiratory 24 26 Rate Blood Pressure 104/38 114/43 (mmHg) O2 Sat by Pulse 98 98 Oximetry Oxygen Devices in Use Now: None Appearance: Patient is an 86yo male who appears stated age and is sitting in the bed in [facility]. Eyes: No Scleral Icterus, PERRLA Ears/Nose/Mouth/Throat: NL Teeth, Lips, Gums, Clear Oropharnyx, Mucous Membranes Moist Neck: NL Appearance and Movements; NL JVP, Trachea Midline Respiratory: Symmetrical Chest Expansion and Respiratory Effort, - - Crackles in B/L lung bases. Cardiovascular: NL Sounds; No Murmurs; No JVD, RRR, No Edema Abdominal: NL Sounds; No Tenderness; No Distention, No Hepatosplenomegaly Lymphatic: No Cervical Adenopathy Extremities: No Edema, No Clubbing, Cyanosis Skin: No Rash or Ulcers, No Nodules or Sclerosis Neurological: Alert and Oriented x 3, NL Sensation, NL Muscle Strength and Tone , - - CN II-XII intact. Result Diagrams: 06/10/17 04:58 06/10/17 04:58 Assess/Plan/Problems-Billing Assessment: Patient is an 86yo male with a PMH for CHF, Gastroparesis, LBBB, and pneumonia who presents with recurrent pneumonia possibly from aspiration who is improving on antibiotics. - Patient Problems (1) Pneumonia Current Visit: Yes Status: Acute Code(s): J18.9 - PNEUMONIA, UNSPECIFIED ORGANISM SNOMED Code(s): 034242508 Comment: Improving fatigue, relatively asymptomatic. Intermittent cough. Continue with Ceftriaxone, Doxy and Flagyl for CAP and aspiration pneumonia. If stable will transition to oral antibiotics. (2) Gastroparesis Current Visit: Yes Status: Acute Code(s): K31.84 - GASTROPARESIS SNOMED Code(s): 875044669 Comment: Continue reglan TID. Predisposes to aspiration. (3) CAD (coronary artery disease) Current Visit: No Status: Chronic Priority: High Onset Date: 11/23/13 Code(s): I25.10 - ATHSCL HEART DISEASE OF [place] CORONARY ARTERY W/O ANG PCTRS SNOMED Code(s): 307243417 Comment: Continue betablocker, statin, and ASA (4) CHF (congestive heart failure) Current Visit: No Status: Chronic Code(s): I50.9 - HEART FAILURE, UNSPECIFIED SNOMED Code(s): 99544655 Comment: No signs of exacerbation at this time Echo - EF 50-55% Daily weights and strict I+O's Continue Carvedilol. Hold Inspra. (5) GERD (gastroesophageal reflux disease) Current Visit: No Status: Chronic Code(s): K21.9 - GASTRO-ESOPHAGEAL REFLUX DISEASE WITHOUT ESOPHAGITIS SNOMED Code(s): 660703330 Comment: Continue PPI and Gastroparesis (6) HLD (hyperlipidemia) Current Visit: No Status: Chronic Code(s): E78.5 - HYPERLIPIDEMIA, UNSPECIFIED SNOMED Code(s): 78199025 Comment: Continue statin (7) HTN (hypertension) Current Visit: No Status: Chronic Code(s): I10 - ESSENTIAL (PRIMARY) HYPERTENSION SNOMED Code(s): 80577552 Comment: Normotensive Continue carvedilol Continue to hold nitro patch. Reintroduce as tolerated. (8) Paroxysmal a-fib Current Visit: No Status: Chronic Code(s): I48.0 - PAROXYSMAL ATRIAL FIBRILLATION SNOMED Code(s): 006287976 Comment: NSR, Continue warfarin, amiodarone and carvedilol. (9) DNR (do not resuscitate) Current Visit: No Status: Acute (10) DVT prophylaxis Current Visit: No Status: Acute Code(s): DLJ1533 - SNOMED Code(s): 926960284 Comment: Continue warfarin, therapeutic INR Status and Disposition: Patient is admitted inpatient. Hopeful discharge tomorrow.
[2017-06-10] MEDS: CMCS: Rosuvastatin (NF) 10 MG TAB PO SCH (20:58)
[2017-06-10] MEDS: CMCS Melatonin (NF) 3 MG TAB PO SCH (20:59)
[2017-06-11] MEDS: metroNIDAZOLE IV 500 MG/100ML* 500 MG/100 ML BAG IVPB SCH (05:19)
[2017-06-11 05:56] LABS: ABS Basophils 0.1 10^3/ul (0-0.2); ABS Eosinophils 0.1 10^3/ul (0-0.6); ABS Lymphocytes 1.9 10^3/ul (1.0-4.8); ABS Monocytes 1.3 10^3/ul (0-0.8); ABS Neutrophils 12.6 10^3/ul (1.5-7.7); ABS Nucleated RBC 0 10^3/ul; Eosinophil % 0.8 % (0-6); Hematocrit 32 % (42-52); Hemoglobin 11.1 g/dl (14.0-18.0); Lymphocyte % 12.1 % (25-47); Mean Corpuscular HGB Conc 34 g/dl (31-36); Mean Corpuscular Hemoglobin 33 pg (27-31); Mean Corpuscular Volume 97 fL (80-94); Mean Platelet Volume 8 um3 (7.4-10.4); Nucleated Red Blood Cells % 0; Platelet Count 167 10^3/ul (150-450); Red Blood Count 3.35 10^6/ul (4.0-5.4); Red Cell Distribution Width 14 % (10.5-15)
[2017-06-11 06:31] LABS: INR 2.83 (0.77-1.02)
[2017-06-11] MEDS: DOXYcycline IV* 100 MG in NS 0.9% 250 ML* 250 ML IVPB SCH (08:22)
[2017-06-11] MEDS: DOXYcycline CAP(*) 100 MG PO SCH ×2 (08:29→21:06)
[2017-06-11] MEDS: Carvedilol TAB* 6.25 MG PO SCH ×3 (08:29→21:06)
[2017-06-11] MEDS: CMCS: Pantoprazole TAB (NF) 40 MG TAB PO SCH (08:29)
[2017-06-11] MEDS: guaiFENesin ER TAB 600 MG PO SCH ×2 (08:29→21:06)
[2017-06-11] MEDS: Aspirin EC Low Dose* 81 MG TAB.EC PO SCH (08:29)
[2017-06-11] MEDS: Amoxicillin/Clavulanate TAB* 875 MG PO SCH ×2 (08:29→21:06)
[2017-06-11] MEDS ORDERED: Nitroglycerin 0.4 MG/HR PATCH* (10 MG) ONE (10:12)
[2017-06-11] MEDS: Nitroglycerin 0.4 MG/HR PATCH* (10 MG) TRANSDERM SCH (10:16)
[2017-06-11] MEDS: Metoclopramide TAB* 10 MG PO PRN ×2 (12:43→16:55)
--- NOTE | 2017-06-11 15:47 | PN ---
Subjective Date of Service: 06/11/17 Interval History: Patient did not sleep well last night but has no other significant complaints besides fatigue. No cough, SOB, CP, N/V, abdominal pain, GERD, F/C, dysuria, or other pain. Family History: Unchanged from Admission Social History: Unchanged from Admission Past Medical History: Unchanged from Admission Objective Active Medications: Acetaminophen (Tylenol Tab*) 650 mg PO Q6H PRN PRN Reason: FEVER/PAIN Last Admin: 06/09/17 19:51 Dose: 650 mg Amiodarone HCl (Cordarone Tab*) 100 mg PO MoFr@0900 [facility] Last Admin: 06/10/17 10:21 Dose: 100 mg Amoxicillin/Clavulanate Potassium (Augmentin Tab*) 875 mg PO BID [facility] Last Admin: 06/11/17 08:29 Dose: 875 mg Aspirin (Aspirin Ec Low Dose*) 81 mg PO DAILY [facility] Last Admin: 06/11/17 08:29 Dose: 81 mg Carvedilol (Coreg Tab*) 12.5 mg PO TID [facility] Last Admin: 06/11/17 13:13 Dose: 12.5 mg Doxycycline Hyclate (Vibramycin Cap(*)) 100 mg PO BID [facility] Last Admin: 06/11/17 08:29 Dose: 100 mg Guaifenesin (Mucinex*) 600 mg PO BID [facility] Last Admin: 06/11/17 08:29 Dose: 600 mg Melatonin (Melatonin (Nf)) 3 mg PO BEDTIME [facility] Last Admin: 06/10/17 20:59 Dose: 3 mg Metoclopramide HCl (Reglan Tab*) 10 mg PO AC PRN PRN Reason: NAUSEA Last Admin: 06/11/17 12:43 Dose: 10 mg Nitroglycerin (Nitroglycerin 10 Mg Patch*) 1 patch TRANSDERM DAILY [facility] Last Admin: 06/11/17 10:16 Dose: 1 patch Ondansetron HCl (Zofran Inj*) 4 mg IV Q6H PRN PRN Reason: NAUSEA Last Admin: 06/10/17 08:30 Dose: 4 mg Pantoprazole Sodium (Protonix Tab (Nf)) 40 mg PO DAILY [facility] Last Admin: 06/11/17 08:29 Dose: 40 mg Pharmacy Profile Note (Nitro Patch/Oint Remove*) 1 note PATCH OFF 2100 [facility] Rosuvastatin Calcium (Crestor (Nf)) 10 mg PO BEDTIME [facility] PRN Reason: Protocol Last Admin: 06/10/17 20:58 Dose: 10 mg Warfarin Sodium (Coumadin Tab(*)) 2.5 mg PO MoFr@1700 [facility] PRN Reason: Protocol Last Admin: 06/10/17 17:03 Dose: 2.5 mg Warfarin Sodium (Coumadin Tab(*)) 5 mg PO SuTuWeThSa@1700 [facility] PRN Reason: Protocol Last Admin: 06/09/17 17:16 Dose: 5 mg Vital Signs - 8 hr 06/11/17 06/11/17 06/11/17 08:00 08:22 11:02 Temperature 98.1 F 98.7 F Pulse Rate 60 63 Respiratory 18 18 18 Rate Blood Pressure 136/49 122/46 (mmHg) O2 Sat by Pulse 97 97 Oximetry Oxygen Devices in Use Now: None Appearance: Patient is an 86yo male who appears stated age and is sitting in the bed in [facility]. Eyes: No Scleral Icterus, PERRLA Ears/Nose/Mouth/Throat: NL Teeth, Lips, Gums, Clear Oropharnyx, Mucous Membranes Moist Neck: NL Appearance and Movements; NL JVP, Trachea Midline Respiratory: Symmetrical Chest Expansion and Respiratory Effort, - - Rhonchi in LLL Cardiovascular: NL Sounds; No Murmurs; No JVD, RRR, No Edema Abdominal: NL Sounds; No Tenderness; No Distention, No Hepatosplenomegaly Lymphatic: No Cervical Adenopathy Extremities: No Edema, No Clubbing, Cyanosis Skin: No Rash or Ulcers, No Nodules or Sclerosis Neurological: Alert and Oriented x 3, NL Sensation, NL Muscle Strength and Tone , - - CN II-XII intact. Result Diagrams: 06/11/17 05:42 06/11/17 05:42 Microbiology and Other Data: Microbiology 06/10/17 12:49 Gram Stain - Final Sputum Expectorated Assess/Plan/Problems-Billing Assessment: Patient is an 86yo male with a PMH for CHF, Gastroparesis, LBBB, and pneumonia who presents with recurrent pneumonia possibly from aspiration who is improving on antibiotics. - Patient Problems (1) Pneumonia Current Visit: Yes Status: Acute Code(s): J18.9 - PNEUMONIA, UNSPECIFIED ORGANISM SNOMED Code(s): 719867581 Comment: Improving fatigue, relatively asymptomatic. Intermittent cough. Transitioned to oral Augmentin and Doxycycline. (2) Gastroparesis Current Visit: Yes Status: Acute Code(s): K31.84 - GASTROPARESIS SNOMED Code(s): 978695153 Comment: Continue reglan TID. Predisposes to aspiration. Patient has involutary tongue and hand movements due to reglan. Patient should follow up with Gastroenterology outpatient as this is likely the cause of recurrent pneumonia. Consider Domperidone or erythromycin treatment due to involuntary movements. (3) CAD (coronary artery disease) Current Visit: No Status: Chronic Priority: High Onset Date: 11/23/13 Code(s): I25.10 - ATHSCL HEART DISEASE OF [place] CORONARY ARTERY W/O ANG PCTRS SNOMED Code(s): 358410090 Comment: No Signs of ACS Restart Nitro patch. Continue betablocker, statin, and ASA (4) CHF (congestive heart failure) Current Visit: No Status: Chronic Code(s): I50.9 - HEART FAILURE, UNSPECIFIED SNOMED Code(s): 19308733 Comment: No signs of exacerbation at this time Echo - EF 50-55% Daily weights and strict I+O's Continue Carvedilol. Hold Inspra. (5) GERD (gastroesophageal reflux disease) Current Visit: No Status: Chronic Code(s): K21.9 - GASTRO-ESOPHAGEAL REFLUX DISEASE WITHOUT ESOPHAGITIS SNOMED Code(s): 288659271 Comment: Continue PPI and reglan. Likely due to Gastroparesis. (6) HLD (hyperlipidemia) Current Visit: No Status: Chronic Code(s): E78.5 - HYPERLIPIDEMIA, UNSPECIFIED SNOMED Code(s): 26280041 Comment: Continue statin (7) HTN (hypertension) Current Visit: No Status: Chronic Code(s): I10 - ESSENTIAL (PRIMARY) HYPERTENSION SNOMED Code(s): 08387530 Comment: Normotensive Continue carvedilol. Resume nitro patch. (8) Paroxysmal a-fib Current Visit: No Status: Chronic Code(s): I48.0 - PAROXYSMAL ATRIAL FIBRILLATION SNOMED Code(s): 512716012 Comment: Paced rhythm, Continue warfarin, amiodarone and carvedilol. INR trending up. Likely due to drug interactions. Will decrease dose temporarily if becomes supratherapeutic. (9) DNR (do not resuscitate) Current Visit: No Status: Acute (10) DVT prophylaxis Current Visit: No Status: Acute Code(s): YQJ3899 - SNOMED Code(s): 044698568 Comment: Continue warfarin, therapeutic INR Status and Disposition: Patient is admitted inpatient. Hopeful discharge tomorrow.
[2017-06-11] MEDS: Warfarin TAB(*) 5 MG PO SCH (16:54)
[2017-06-11] MEDS ORDERED: Nitro Patch/OINT Remove PATCH OFF SCH (21:00)
[2017-06-11] MEDS: CMCS: Rosuvastatin (NF) 10 MG TAB PO SCH (21:06)
[2017-06-11] MEDS: CMCS Melatonin (NF) 3 MG TAB PO SCH (21:11)
[2017-06-12 06:11] LABS: ABS Basophils 0.1 10^3/ul (0-0.2); ABS Eosinophils 0.2 10^3/ul (0-0.6); ABS Monocytes 0.8 10^3/ul (0-0.8); ABS Neutrophils 7.8 10^3/ul (1.5-7.7); ABS Nucleated RBC 0 10^3/ul; Eosinophil % 1.5 % (0-6); Hematocrit 33 % (42-52); Hemoglobin 11.4 g/dl (14.0-18.0); Lymphocyte % 18.5 % (25-47); Mean Corpuscular HGB Conc 34 g/dl (31-36); Mean Corpuscular Hemoglobin 33 pg (27-31); Mean Corpuscular Volume 97 fL (80-94); Mean Platelet Volume 8 um3 (7.4-10.4); Nucleated Red Blood Cells % 0.1; Platelet Count 191 10^3/ul (150-450); Red Blood Count 3.44 10^6/ul (4.0-5.4); Red Cell Distribution Width 14 % (10.5-15); White Blood Count 10.8 10^3/ul (3.5-10.8)
[2017-06-12 06:18] LABS: INR 2.81 (0.77-1.02)
[2017-06-12 06:32] LABS: EGFR Non-African American 75.5 (>60)
[2017-06-12] MEDS ORDERED: Magnesium Sulfate 1 GM IV* 1 GM/100 ML BAG IV ONE (06:59)
[2017-06-12] MEDS: Amoxicillin/Clavulanate TAB* 875 MG PO SCH (08:07)
[2017-06-12] MEDS: Nitroglycerin 0.4 MG/HR PATCH* (10 MG) TRANSDERM SCH (08:07)
[2017-06-12] MEDS: DOXYcycline CAP(*) 100 MG PO SCH (08:07)
[2017-06-12] MEDS: Carvedilol TAB* 6.25 MG PO SCH (08:08)
[2017-06-12] MEDS: Aspirin EC Low Dose* 81 MG TAB.EC PO SCH (08:08)
[2017-06-12] MEDS: CMCS: Pantoprazole TAB (NF) 40 MG TAB PO SCH (08:08)
[2017-06-12] MEDS: guaiFENesin ER TAB 600 MG PO SCH (08:08)
[2017-06-12] MEDS: Metoclopramide TAB* 10 MG PO PRN (08:11)
[2017-06-12 08:13] VITALS: BP 137/47
[2017-06-12] MEDS: Acetaminophen TAB* 325 MG PO PRN (08:25)
--- NOTE | 2017-06-13 04:53 | DS ---
CC: Dr. Duy Peck * DISCHARGE SUMMARY: DATE OF ADMISSION: 06/09/17 DATE OF DISCHARGE: 06/12/17 PRIMARY CARE PROVIDER: Dr. Duy Peck. MY ATTENDING WHILE IN THE HOSPITAL: Dr. Víctor Horton.* (DICTATED BY MONICA HIGGINS) PRIMARY DISCHARGE DIAGNOSIS: Lobar pneumonia. SECONDARY DISCHARGE DIAGNOSES: 1. Ischemic cardiomyopathy, status post myocardial infarction with coronary artery bypass grafting and biventricular pacemaker placement. 2. Hypertension. 3. Hyperlipidemia. 4. Gastroesophageal reflux disease. 5. Sick sinus syndrome. 6. Benign prostatic hypertrophy. 7. Atrial fibrillation. 8. Idiopathic gastroparesis. 9. Left bundle-branch block. 10. 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 STUDIES DONE WHILE IN THE HOSPITAL: Chest x-ray from 06/09/17 read as cardiomegaly with left lower lobe consolidation. Recommend followup until resolution to exclude underlying pulmonary parenchymal pathology. Electrocardiogram from 06/09/17 shows left bundle-branch block, paced rhythm. No P-waves present. QTc of 473, minor ST depression in V2 only of 1 millivolt, extreme left axis, no other abnormalities. Repeat EKG shows no significant changes except the resolution of ST segment depression in V2. MEDICATIONS: Medications at discharge: 1. Carvedilol 12.5 mg p.o. t.i.d. 2. Pantoprazole 40 mg p.o. daily. 3. Warfarin 5 mg p.o. Tuesday, Tuesday, Tuesday, , Tuesday. 4. Zofran 4 mg p.o. q.6 hours as needed. 5. Nitroglycerin 0.4 mg sublingual q.5 minutes as needed. 6. Rosuvastatin 10 mg p.o. at bedtime. 7. Eplerenone 12.5 mg p.o. daily. 8. Aspirin 81 mg p.o. daily. 9. Amiodarone 100 mg p.o. Tuesday and Tuesday. 10. Warfarin 2.5 mg p.o. Tuesday and Tuesday. 11. Nitroglycerin 1 patch transdermal daily. 12. Metoclopramide 10 mg p.o. t.i.d. as needed. 13. Albuterol 2 puffs inhalation q.i.d. as needed. 14. Metaxalone 400 mg p.o. t.i.d. as needed. 15. Vitamin B12 1000 mcg IM monthly. 16. Guaifenesin 600 mg p.o. b.i.d. as needed. 17. Augmentin 875 mg p.o. b.i.d. x14. 18. Doxycycline 100 mg p.o. b.i.d. x14. 19. Melatonin 3 mg p.o. bedtime. New medications at discharge: 1. Augmentin. 2. Doxycycline. 3. Melatonin. Medications discontinued at discharge: None. HOSPITAL COURSE: This is a brief summary of the patient's presentation. For more details, please see history and physical from this author on 06/09/17. In brief, the patient is an 86-year-old male with past medical history significant for the above, who presented after approximately 12 hours of whole body chills, profuse sweating, and general fatigue. The patient has white blood cell count of 23.7 thousand in the emergency department as well as hypotension as low as 78 /28, which improved with fluids and removal of his nitro patch. The patient has paced rhythm and was not tachycardic. The patient had borderline low oxygen saturations, but was never truly hypoxic. The patient was found to have a lobar consolidation as above. The patient has started on antibiotics to cover community-acquired and aspiration pneumonia as the patient has idiopathic gastroparesis and had recently been decreasing the dose of his Reglan. The patient developed increased productive cough and mild shortness of breath on his 2nd day in the hospital. The patient had no more fevers and chills. The patient had some nausea and dry heaves, which resolved with Reglan. The patient had no other complaints. The patient's white blood cell count decreased to 20,000 on his 2nd day in the hospital. The patient's blood pressure remained elevated. His nitro patch and Inspra were held while in the hospital. The patient again improved from 06/10/17 to 06/11/17 with decreased cough. No shortness of breath. Decreased fatigue. The patient was transitioned from IV to oral antibiotics. The patient's nitroglycerin patch was reintroduced. The patient while in the hospital was taking Reglan 3 times a day. The patient continued to improve from 06/11/17 to 06/12/17. The patient had no complaints and was anxious to go home. The patient never had any hypoxia. The patient denied chest pain while in the hospital. The patient had a slight amount of chest pain before his presentation to the emergency department and had negative troponin x3 and no ST segment changes except for the [address] segment depression as above in 1 lead. The patient had low magnesium while in the hospital, which was replaced. The patient's white blood cell count was normalized on day of admission. The patient's INR increased from 2.15 to 2.81 while in the hospital, but never became supratherapeutic. The patient had a negative urinalysis. PHYSICAL EXAMINATION ON DAY OF DISCHARGE: General: The patient is an 86-year- old male, who appears stated age and sitting comfortably in bed, in no acute distress. Vital signs at the time of discharge: Temperature 98.2, pulse rate 59 , respiratory rate 16, oxygen saturation 96% on room air, blood pressure 137/ 47. HEENT: Head: Normocephalic, atraumatic. Sclerae anicteric. No conjunctival injection. Nasal mucosa moist. Oral mucosa moist. No pharyngeal erythema, discharge, or exudate. Neck: Supple, nontender. No lymphadenopathy. No carotid bruits auscultated. Cardiac: Regular rate and rhythm. No clicks, murmurs, gallops, or rubs. Pulses 2+ in bilateral dorsalis pedis, posterior tibialis, and radial areas. No lower extremity edema noted. No calf tenderness to the patient. Respiratory: Clear to auscultation bilaterally. No wheezes, rales, or rhonchi. Good air exchange bilaterally. Abdomen: Soft, nontender, nondistended. Bowel sounds present, normoactive in all 4 quadrants. No succussion splash. No abdominal bruits auscultated. No hepatosplenomegaly. Genitourinary: No suprapubic or CVA tenderness. Skin: Clean, dry, and intact. No rash. Neuro: Cranial nerves II through XII intact. The patient is legally blind. No focal vision deficits. Psychiatric: Very pleasant and cooperative. LABORATORY DATA FROM DAY OF DISCHARGE: White blood cell count 10.8, hemoglobin 11.4, hematocrit 33, MCV 97, MCH 33. INR 2.81. Sodium 134, potassium 3.9, carbon dioxide 22, anion gap 7, BUN 13, creatinine 0.95, glucose 98, calcium 8.8. Magnesium 1.8. Other laboratory data of note from admission: CRP 12.85. Troponin I 0.01, repeat 0.03 and 0.03. Total protein 6.1. BNP is 3.62. Influenza A and B negative. Creatinine 1.42 on admission. DISCHARGE PLAN: The patient will be discharged to home with the assistance of his . The patient will be continued on antibiotics including Augmentin and doxycycline for 7 more days. The patient should follow up with his primary care provider within 1 week for general medical management. The patient should return to the hospital for alarming symptoms such as severely increased shortness of breath, chest pain, fevers, and unresponsive to medication. 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 Possible referral to Gastroenterology would be indicated. The patient should follow up with his supervisor rose grading as tolerated. The patient had no signs of CHF exacerbation while he was in the hospital, though his weight remained constant throughout his hospitalization. The patient should have a heart-healthy diet without a caffeine. The patient should have small meals and sit up after eating. The patient's aspiration, gastroparesis very possibly at the aspiration, which has led to recurrent pneumonia at this point. The patient should sit up after meals and sleep on slight incline at home. The patient engage in activity as tolerated. TIME SPENT: Approximately 60 minutes was spent on this discharge, 30 of which was spent [id number] with the patient obtaining history and physical and discussing treatment plan. MONICA HIGGINS [id number]/CPS #: [id number] [place]
== END 2017-06-12 10:58 | disposition home or self-care (01) | DRG 194 ==
LOC: ED 11:19 → MEDTELE 15:42
PROVIDERS: ADMIT Internal Medicine; ATTEND Internal Medicine
DX: J18.1 Lobar pneumonia, unspecified organism (principal); I50.32 Chronic diastolic (congestive) heart failure; I95.9 Hypotension, unspecified; I48.0 Paroxysmal atrial fibrillation; I11.0 Hypertensive heart disease with heart failure; E87.8 Other disorders of electrolyte and fluid balance, not elsewhere classified; K31.84 Gastroparesis; I25.5 Ischemic cardiomyopathy; I25.10 Atherosclerotic heart disease of native coronary artery without angina pectoris; I44.7 Left bundle-branch block, unspecified; E78.5 Hyperlipidemia, unspecified; K21.9 Gastro-esophageal reflux disease without esophagitis; N40.0 Benign prostatic hyperplasia without lower urinary tract symptoms; J42 Unspecified chronic bronchitis; J69.0 Pneumonitis due to inhalation of food and vomit; M19.90 Unspecified osteoarthritis, unspecified site; H54.8 Legal blindness, as defined in USA; Z96.652 Presence of left artificial knee joint; H35.30 Unspecified macular degeneration; Z66 Do not resuscitate; Z95.1 Presence of aortocoronary bypass graft; I25.2 Old myocardial infarction; Z79.82 Long term (current) use of aspirin; Z95.5 Presence of coronary angioplasty implant and graft; Z88.8 Allergy status to other drugs, medicaments and biological substances; Z88.1 Allergy status to other antibiotic agents; Z85.828 Personal history of other malignant neoplasm of skin; Z82.49 Family history of ischemic heart disease and other diseases of the circulatory system; Z83.6 Family history of other diseases of the respiratory system; Z90.49 Acquired absence of other specified parts of digestive tract; Z80.3 Family history of malignant neoplasm of breast; Z80.7 Family history of other malignant neoplasms of lymphoid, hematopoietic and related tissues; Z83.3 Family history of diabetes mellitus; R11.0 Nausea; Z79.01 Long term (current) use of anticoagulants; Z95.0 Presence of cardiac pacemaker
CPT/HCPCS: 36415; 71046; 80048; 80053; 81003; 82550; 83605; 83735; 83880; 84484; 85025; 85610; 86140; 87040; 87070; 87077; 87205; 87502; 87899; 93005; 99282; A9270-GY; J0696; J2405; J3475; J3490

== ENCOUNTER 2017-07-22 15:52 | Observation (INO) | payer MEDICARE ==
[2017-07-22 16:55] LABS: ABS Basophils 0.1 10^3/ul (0-0.2); ABS Eosinophils 0.1 10^3/ul (0-0.6); ABS Lymphocytes 1.9 10^3/ul (1.0-4.8); ABS Monocytes 0.8 10^3/ul (0-0.8); ABS Neutrophils 4.6 10^3/ul (1.5-7.7); ABS Nucleated RBC 0 10^3/ul; Eosinophil % 1.1 % (0-6); Hematocrit 37 % (42-52); Hemoglobin 12.7 g/dl (14.0-18.0); Lymphocyte % 25.3 % (25-47); Mean Corpuscular HGB Conc 34 g/dl (31-36); Mean Corpuscular Hemoglobin 33 pg (27-31); Mean Corpuscular Volume 96 fL (80-94); Mean Platelet Volume 7.8 um3 (7.4-10.4); Nucleated Red Blood Cells % 0; Platelet Count 258 10^3/ul (150-450); Red Cell Distribution Width 13 % (10.5-15); White Blood Count 7.4 10^3/ul (3.5-10.8)
[2017-07-22 17:10] LABS: INR 2.26 (0.77-1.02)
--- NOTE | 2017-07-22 17:11 | RAD ---
INDICATION: Chest pain. COMPARISON: Comparison is made with a prior study from June 09, 2017. TECHNIQUE: A portable view of the chest was obtained. FINDINGS: The patient appears to be status post coronary artery bypass surgery. There is a multilead transvenous pacemaker present. The heart is moderately enlarged and unchanged from the prior exam. The lungs are clear. No pleural effusion is seen. IMPRESSION: POSTSURGICAL CHANGES, NO EVIDENCE FOR ACUTE FINDING.
[2017-07-22 17:12] LABS: EGFR Non-African American 56.1 (>60)
[2017-07-22 17:52] LABS: Urine Appearance Clear; Urine Blood 1+ (Negative); Urine Color Straw; Urine Ketones Negative (Negative); Urine Protein Negative (Negative); Urine Specific Gravity 1.005 (1.010-1.030); Urine Urobilinogen Negative (Negative)
[2017-07-22] MEDS ORDERED: Aspirin 81 mg CHEW TAB* 81 MG TAB.CHEW PO ONE (18:32)
--- NOTE | 2017-07-22 18:50 | ED ---
Brain Christian Julia, scribed for Kenya Wagner MD on 07/22/17 at 1628 . HPI Chest Pain - HPI Summary HPI Summary: This patient is a 86 year old M presenting to [facility] accompanied by his with a chief complaint of left anterior chest pain described as sharp since last night with LUE pain described as achy. The patient rates the pain 4/10 in severity. Pain is currently resolved. Patient reports nausea. He is concerned that he ate too much salt yesterday. He states he did not eat lunch today because he was not hungry. PMHx of CHF and CAD with two stents placed over ten years ago without any AL. reports recent hospitalization; records show from 06/09/17 to 06/12/17 and pt's BP was low at this time. Pt takes 81mg of ASA daily. Pt reports that shaking is at baseline due to continued use of Reglan. Pts Coreg dose was recently cut in half. - History of Current Complaint Chief Complaint: EDChestPainROMI Time Seen by Provider: 07/22/17 16:17 Hx Obtained From: Patient, Family/Rn Clinician Onset/Duration: Started Hours Ago, Atraumatic, Resolved Timing: Constant Initial Severity: Moderate Current Severity: Moderate Pain Intensity: 4 Pain Scale Used: 0-10 Numeric Chest Pain Location: Left Anterior Chest Pain Radiates: Yes Chest Pain Radiates To:: Arm - left Character: Sharp/Stabbing Aggravating Factor(s): Nothing Alleviating Factor(s): Nothing Associated Signs and Symptoms: Positive: Chest Pain, Nausea Related History: Similar Episode/Dx as: - CAD and CHF - Additional Pertinent History Primary Care Physician: [id number] - Allergy/Home Medications Allergies/Adverse Reactions: Allergies Allergy/AdvReac Type Severity Reaction Status Date / Time atorvastatin AdvReac Muscle Ache Verified 06/10/17 13:06 erythromycin base AdvReac Pain Verified 06/10/17 13:06 metoclopramide AdvReac See Comment Verified 06/10/17 13:06 PACEMAKER- NO MRIs AdvReac NO Uncoded 08/21/15 22:49 MRIs-PACEMAKER Home Medications: Home Medications Melatonin (NF) 3 mg PO BEDTIME PRN 07/22/17 [History Confirmed 07/22/17] PMH/Surg Hx/FS Hx/Imm Hx Previously Healthy: No Endocrine/Hematology History: Reports: Hx Anticoagulant Therapy - on warfarin , Hx Blood Transfusions Denies: Hx Blood Disorders, Hx Bone Marrow Disease, Hx Diabetes, Hx Systemic Lupus Erythematosus, Hx Sickle Cell Disease, Hx Thyroid Disease, Hx Anemia, Hx Unexplained Bleeding, Other Endocrine/Hematological Disorders Cardiovascular History: Reports: Hx Angina, Hx Auto Implanted Cardiovert Defib, Hx Cardiac Arrest, Hx Congestive Heart Failure, Hx Coronary Artery Disease, Hx Hypercholesterolemia, Hx Hypotension, Hx Hypertension, Hx Myocardial Infarction , Hx Pacemaker/ICD, Other Cardiovascular Problems/Disorders - ischemic cardiomyopathy Denies: Hx Aneurysm, Hx Angioplasty, Hx Cardiomegaly, Hx Congenital Heart Disease, Hx Deep Vein Thrombosis, Hx Embolism, Hx Peripheral Vascular Disease, Hx Rheumatic Fever, Hx Syncope, Hx Valvular Heart Disease Respiratory History: Reports: Hx Chronic Bronchitis, Hx Pneumonia, Hx Pulmonary Edema, Hx Seasonal Allergies Denies: Hx Asthma, Hx Chronic Obstructive Pulmonary Disease (COPD), Hx Cystic Fibrosis, Hx Lung Cancer, Hx Pleural Effusion, Hx Pulmonary Embolism, Hx Sleep Apnea GI History: Reports: Hx Gall Bladder Disease - cholecystectomy, Hx Gastroesophageal Reflux Disease, Hx Hiatal Hernia - repair x2, Other GI Disorders - inability to digest food Denies: Hx Cirrhosis, Hx Crohn's Disease, Hx Diverticulosis, Hx Gastrointestinal Bleed, Hx Irritable Bowel, Hx Jaundice, Hx Obstructive Bowel, Hx Ileostomy, Hx Pyloric Stenosis, Hx Ulcer History: Reports: Hx Benign Prostatic Hyperplasia, Other Problems/ Disorders - prostate surgery Denies: Hx Acute Renal Failure, Hx Chronic Renal Failure, Hx Dialysis, Hx Kidney Infection, Hx Kidney Stones, Hx Renal Disease Musculoskeletal History: Reports: Hx Arthritis, Hx Back Problems - herniated disk, Hx Joint Replacement - TKR left Denies: Hx Rheumatoid Arthritis, Hx Bursitis, Hx Fibromyalgia, Hx Gout, Hx Osteoporosis, Hx Scoliosis, Hx Tendonitis Sensory History: Reports: Hx Legally Blind, Hx Macular Degeneration, Hx Vision Problem Denies: Hx Cataracts, Hx Contacts or Glasses, Hx Eye Injury, Hx Eye Prosthesis, Hx Glaucoma, Hx Deafness, Hx Hearing Aid, Hx Hearing Problem, Other Sensory Impairments Opthamlomology History: Reports: Hx Legally Blind, Hx Macular Degeneration, Hx Vision Problem Denies: Hx Cataracts, Hx Contacts or Glasses, Hx Eye Injury, Hx Eye Prosthesis, Hx Glaucoma, Other Sensory Impairments Neurological History: Reports: Other Neuro Impairments/Disorders - laminectomy Denies: Hx Dementia, Hx Developmental Delay, Hx Headaches, Hx Migraine, Hx Nerve Disease, Hx Seizures, Hx Spinal Cord Injury, Hx Transient Ischemic Attacks (TIA) Psychiatric History: Denies: Hx Anxiety, Hx Attention Deficit Hyperactivity Disorder, Hx Eating Disorder, Hx Depression, Hx Panic Disorder, Hx Post Traumatic Stress Disorder, Hx Inpatient Treatment, Hx Community Mental Health Tx, Hx Schizophrenia, Hx Bipolar Disorder, Hx Suicide Attempt, Hx Substance Abuse, Other Psychiatric Issues/Disorders - Cancer History Cancer Type, 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 cholecystectomy 1994, hiatal hernia , CABG, Back Sx, Prostate Sx, Stents, Cardiac cath with bypass Hx Anesthesia Reactions: No Infectious Disease History: No Infectious Disease History: Denies: Hx Clostridium Difficile, Hx Hepatitis, Hx Human Immunodeficiency Virus (HIV), Hx of Known/Suspected MRSA, Hx Shingles, Hx Tuberculosis, Hx Known/ Suspected VRE, Traveled Outside the in Last 30 Days - Family History Known Family History: Positive: Cardiac Disease - In both brothers - Social History Occupation: Retired Lives: With Family Alcohol Use: None Hx Substance Use: No Substance Use Type: Reports: None Hx Tobacco Use: No Smoking Status (MU): Never Smoked Tobacco Review of Systems Constitutional: Negative Positive: Chest Pain Positive: Shortness Of Breath Positive: Nausea Genitourinary: Negative Positive: Myalgia - arm pain Positive: Rash Neurological: Negative Psychological: Normal All Other Systems Reviewed And Are Negative: Yes Physical Exam - Summary Physical Exam Summary: Appearance: Chronically Ill-appearing, no pain distress, Well-nourished, nitro patch in place left ant chest Skin: Warm, color reflects adequate perfusion Head: Normal Head/Face inspection Eyes: Conjunctiva clear ENT: Normal inspection Neck: Supple, no nodes, JVD half way up Respiratory: Basilar crackles bilaterally, respirations labored with moving on the stretcher Cardio: RRR, No murmur, pulses normal, brisk capillary refill, keloid scar mid chest Abdomen: soft, nontender, no masses Bowel sounds: present Musculoskeletal: Strength Intact/ ROM intact. No calf tenderness. Trace edema bilaterally Psychological: Normal Neuro: Alert, muscle tone normal, no focal deficit, moves all extemities well. Triage Information Reviewed: Yes Vital Signs On Initial Exam: Initial Vitals Temp Pulse Resp BP Pulse Ox 97.0 F 60 18 157/52 98 07/22/17 15:55 07/22/17 15:55 07/22/17 15:55 07/22/17 15:55 07/22/17 15:55 Vital Signs Reviewed: Yes Diagnostics - Vital Signs Vital Signs Temp Pulse Resp BP Pulse Ox 07/22/17 15:55 97.0 F 60 18 157/52 98 - Laboratory Result Diagrams: 07/22/17 16:40 07/22/17 16:40 Lab Statement: Any lab studies that have been ordered have been reviewed, and results considered in the medical decision making process. - Radiology CXR Radiology Interpretation Completed By: Radiologist - POSTSURGICAL CHANGES, NO EVIDENCE FOR ACUTE FINDING. ED Physician has reviewed this report. - EKG 1555 Cardiac Rate: NL - at [address] Segment: Non-Specific Ectopy: None EKG Interpretation: 100% paced EKG Comparison: No Significant Change - 06/09/2017 Re-Evaluation - Re-Evaluation 1 Re-Evaluation Time: 18:30 Change: Worse - Pt is having chest pain. Chest Pain Course/Dx - Course Course Of Treatment: Pt presents with left anterior CP radiating to left arm. Pt reports nausea. Pt takes 81mg of ASA daily.PMHx of CHF and CAD. A EKG and CXR reveals no acute findings. Bloodwork obtained. First troponin is negative. D -dimer is elevated but pt has a therapeutic INR on coumadin. Pt is given ASA 324mg po chewed. Pt is having chest pain while in ED. Dr. Guajardo agrees to admit this patient. - Chest Pain Differential Diagnosis/HQI/PQRI: Acute AL, ACS, Angina, CHF, Pulmonary Edema, Pulmonary Embolism - Diagnoses Provider Diagnoses: Chest pain, Hypertension, poor control - Provider Notifications Discussed Care Of Patient With: Daphnie Guajardo - hospitalist Time Discussed With Above Provider: 18:34 Instructed by Provider To: Admit As Inpatient Discharge - Sign-Out/Discharge Documenting (check all that apply): Discharge - admit - Discharge Plan Condition: Stable Disposition: ADMITTED TO [facility] Referrals: Duy Peck MD [Primary Care Provider] - - Billing Disposition and Condition Condition: STABLE Disposition: [facility]P-[facility] The documentation as recorded by the Brain tejada Julia accurately reflects the service I personally performed and the decisions made by , Kenya Wagner MD.
[2017-07-22] MEDS ORDERED: Ondansetron INJ* 2 MG/ML VIAL IV PRN (20:39)
[2017-07-22] MEDS ORDERED: Acetaminophen TAB* 325 MG PO PRN (20:39)
[2017-07-22] MEDS ORDERED: CMCS:Melatonin (NF) 3 MG TAB PO PRN (20:43)
[2017-07-22] MEDS ORDERED: Albuterol HFA INHALER* 8 gm MDI INH PRN (20:43)
[2017-07-22] MEDS ORDERED: Ondansetron TAB* 4 MG PO PRN (20:43)
[2017-07-22] MEDS ORDERED: Metoclopramide TAB* 10 MG PO PRN (20:43)
[2017-07-22] MEDS ORDERED: Metaxalone TAB* 800 MG PO PRN (20:43)
[2017-07-22] MEDS ORDERED: traMADol TAB* 50 MG PO ONE (20:49)
[2017-07-22] MEDS ORDERED: Amiodarone TAB* 200 MG PO SCH ×2 (21:00→23:00)
[2017-07-22] MEDS ORDERED: Warfarin TAB(*) 2.5 MG PO SCH (22:00)
[2017-07-22] MEDS: Carvedilol TAB* 25 MG PO SCH (22:13)
--- NOTE | 2017-07-23 00:17 | HP ---
CC: Dr. Duy Peck* HISTORY AND PHYSICAL: DATE OF ADMISSION: 07/22/17 PRIMARY CARE PROVIDER: Dr. Duy Peck. ATTENDING PHYSICIAN WHILE IN THE HOSPITAL: Víctor Horton MD* (report being dictated by Rashad Wolf NP). CHIEF COMPLAINT: Chest pain. HISTORY OF PRESENT ILLNESS: Mr. Rodriguez is an 86-year-old male patient with a significant past medical history. He has a history of ischemic cardiomyopathy, last known EF was around 50% to 55%; history of sick sinus syndrome, status post pacemaker BiV; AFib; gastroparesis; left bundle-branch block; [place]; CHF; hypertension; hyperlipidemia and macular degeneration. He comes into our ER today. He says that last night he woke up middle of the night. He had some discomfort. He thought a blood pressure cuff was going off his left arm. It went it into his left chest. He states since last night, the pain has been constant all day today. It has been a dull sharp pain in his chest. It is reproducible. He says it is tender when he touches the chest. He states he has not had any exertional chest pain. No chest pressure. He denied having any shortness of breath. He admits to having nausea with this and he became diaphoretic. He states the discomfort was concerning because he was just not getting any better, was nagging him all day and there was increasing in pain, so he decided to come into the ED because the pain just was not getting any better. He denies feeling short of breath. He states he denies having any weight changes. He denies having any lower extremity worsening edema. He states that discomfort again was concerning. He came in, was evaluated. Because of his medical complexity, we were asked to evaluate. Of note, he recently did have pneumonia. He was just here and discharged about a month ago. He states since then, he had been doing well. He had not been having any more cough, fevers or any vomiting. Because of his risk factors, we were asked to evaluate due to the chest pain. PAST MEDICAL HISTORY: Significant for: 1. Ischemic cardiomyopathy. 2. Sick sinus syndrome. 3. AFib. 4. Gastroparesis. 5. Left bundle-branch block. 6. [place]. 7. CHF. 8. Hypertension. 9. Hyperlipidemia. 10. Macular degeneration. PAST SURGICAL HISTORY: 1. He has had a pacemaker placement. 2. CABG. 3. PCI. 4. Left total knee placement. 5. Hiatal hernia repair. 6. Tonsillectomy. 7. Cholecystectomy. 8. Back surgery. HOME MEDICATIONS: Include: 1. Protonix 40 mg p.o. daily. 2. Zofran 4 mg p.o. every 6 hours as needed. 3. Nitro patch 1 patch transdermally daily. 4. Reglan 10 mg p.o. daily as needed. 5. Skelaxin 400 mg p.o. t.i.d. as needed. 6. Melatonin 3 mg at bedtime as needed. 7. Inspira 12.5 mg daily. 8. Coreg 12.5 mg p.o. b.i.d. 9. Aspirin 81 mg daily. 10. Amiodarone 100 mg p.o. Mondays and Fridays. 11. Mucinex 600 mg p.o. b.i.d. as needed. 12. Coumadin 2.5 mg Mondays and Fridays. He takes 5 mg of Coumadin on Tuesday, Tuesday, Tuesday, and Tuesday. 13. Crestor 10 mg at bedtime. 14. B12 1000 mcg IM monthly 15. Albuterol 2 puffs inhaled 4 times a day as needed. ALLERGIES TO MEDICATIONS: Include CODEINE, ERYTHROMYCIN. REGLAN causes dystonia. FAMILY HISTORY: His mother had a history of PE. Father had a history of COPD and CHF. SOCIAL HISTORY: He does not smoke. He does not drink. Surrogate decision maker is his , Yarelis. REVIEW OF SYSTEMS: There is no documented fever. He denies having any significant weight change and there was no double vision. He denies having any ear discharge. He denies having any rhinorrhea. No sore throat. No thyroid enlargement. He did admit to having chest pain per my HPI. There is no orthopnea. No nocturnal dyspnea. There was no abdominal pain. There is nausea , but no vomiting, no dysuria, no frequency. There is no loss of consciousness. No pruritus. No skin ulcerations. Review of 14 systems completed, all others negative. PHYSICAL EXAMINATION GENERAL: At this time, Mr. Rodriguez is an 86-year-old male patient. He is sitting in the ED stretcher. He does not appear to be in any acute distress. He appears to be well nourished, well developed. VITAL SIGNS: Blood pressure 157/52 with a pulse of 60, respirations 18, O2 sat 98%, temperature 97. HEENT: Head: Atraumatic, normocephalic. Eyes: EOMs are intact. Sclerae anicteric and not pale. Throat: Oral mucosa appears to be moist. No oropharyngeal erythema. NECK: Supple. LUNGS: Clear to auscultation bilaterally. No wheezes, rales, or rhonchi. HEART: Sounds S1, S2. Regular rate and rhythm. No murmurs, rubs, or gallops. ABDOMEN: Soft, flat, nontender. Bowel sounds were present. EXTREMITIES: Pulses were 2+ throughout. He is moving all 4 extremities with 5/ 5 strength. NEUROLOGICAL: The patient is awake, alert. He is oriented x3. He has no gross focal deficits. SKIN: Intact. DIAGNOSTIC STUDIES/LAB DATA: WBC of 7.4, RBC of 3.90, hemoglobin 12.7, hematocrit 37, platelet count 258,000. INR 2.26, PTT 43, D-dimer 245. Sodium was 132, potassium 4.4, chloride 101, bicarb 24, BUN 17, creatinine 1.23, glucose 85, lactic 0.8, calcium 9.1, mag 2.1, total bili 0.6, AST 27, ALT 15, alk phos 71, CK 37, CK- MB 1, troponins 0.01, repeat 0.01, BNP 94, TSH normal. Urine obtained, it was negative. He did have a chest x-ray obtained today, which showed postsurgical changes, no evidence for acute findings. EKG today shows atrioventricular paced rhythm, rate of 60. Reviewed to the previous EKG, it is similar. He did have an echo done in March, EF 50% to 55%. Old medical records reviewed. ASSESSMENT AND PLAN: Mr. Rodriguez is an 86-year-old male patient coming into the ED today with complaints of chest discomfort. We were asked to evaluate for admission. He will be admitted under observation status for: 1. Chest pain. At this point, I suspect the chest pain is probably it is atypical, it is reproducible, sharp pain, it has been constant and despite the constant pain, he has had 2 negative troponins. He is high risk, so I do think he warrants a third troponin and observation stay. We can consider doing an outpatient stress test or possibly keeping him until Tuesday, but I would like to reevaluate him tomorrow and see what his troponins do. I would keep him on telemetry. I am going to give him some tramadol for the pain. It seems musculoskeletal. I do not think this is costochondritis, it seems too far out from his pneumonia of about a month ago. He has no recent illnesses to suspect pericarditis, but the pain is atypical. He is not hypoxic. He is not short of breath and his INR is therapeutic, so I do not think we need to daisy down the mildly elevated D-dimer and the D-dimer of this number for his age is appropriate, so I think we will continue to monitor him upstairs. 2. Ischemic cardiomyopathy. Continue meds as prescribed. 3. Atrial fibrillation. We will continue his warfarin as prescribed. 4. Gastroparesis. Continue p.r.n. Reglan. 5. History of coronary artery disease and myocardial infarction. Continue with his statin and beta-cocnepcion therapy in addition to this, aspirin therapy. 6. Hypertension. Continue meds as prescribed. 7. Hyperlipidemia. Continue statin therapy. 8. Macular degeneration. Continue supportive care. 9. DVT Prophylaxis. He is on his Coumadin. INR is therapeutic. 10. Fluids, electrolytes, and nutrition: He can have a heart healthy diet. 11. Code status. He is DNR. TIME SPENT: Time spent on this admission was approximately 60 minutes, greater than half the time was spent [id number] with the patient obtaining my history and physical, other half of the time was spent going over the plan of care with the patient and implementing the plan of care. I discussed the plan of care with my attending, Dr. Horton, he is in agreement. RASHAD WOLF NP [id number]/[facility] #: [id number] [place]
[2017-07-23 06:00] LABS: ABS Basophils 0.1 10^3/ul (0-0.2); ABS Eosinophils 0.1 10^3/ul (0-0.6); ABS Lymphocytes 2.2 10^3/ul (1.0-4.8); ABS Monocytes 0.8 10^3/ul (0-0.8); ABS Neutrophils 3.5 10^3/ul (1.5-7.7); ABS Nucleated RBC 0 10^3/ul; Eosinophil % 1.5 % (0-6); Hematocrit 36 % (42-52); Hemoglobin 12.1 g/dl (14.0-18.0); Lymphocyte % 32.3 % (25-47); Mean Corpuscular HGB Conc 34 g/dl (31-36); Mean Corpuscular Hemoglobin 32 pg (27-31); Mean Corpuscular Volume 97 fL (80-94); Nucleated Red Blood Cells % 0.1; Platelet Count 249 10^3/ul (150-450); Red Blood Count 3.73 10^6/ul (4.0-5.4); Red Cell Distribution Width 14 % (10.5-15); White Blood Count 6.7 10^3/ul (3.5-10.8)
[2017-07-23 06:06] LABS: INR 2.28 (0.77-1.02)
[2017-07-23 06:15] LABS: EGFR Non-African American 56.6 (>60)
[2017-07-23] MEDS ORDERED: Omeprazole CAP* 20 MG PO SCH (07:30)
[2017-07-23] MEDS: Carvedilol TAB* 25 MG PO SCH ×2 (08:51→20:32)
[2017-07-23] MEDS ORDERED: Nitroglycerin 0.4 MG/HR PATCH* (10 MG) TRANSDERM SCH (09:00)
[2017-07-23] MEDS ORDERED: CMCS:Epleronone (NF) 25 MG TAB PO SCH (09:00)
[2017-07-23] MEDS ORDERED: Aspirin EC TAB* 81 MG TAB.EC PO SCH (09:00)
[2017-07-23] MEDS: Metoclopramide TAB* 10 MG PO PRN ×2 (15:38→17:06)
[2017-07-23] MEDS ORDERED: Warfarin TAB(*) 5 MG PO SCH (17:00)
[2017-07-24 04:45] VITALS: BP 115/43
--- NOTE | 2017-07-24 07:24 | DCNOTE ---
Subjective Date of Service: 07/23/17 Interval History: No more chest pain. No new c/o. Objective Active Medications: Acetaminophen (Tylenol Tab*) 650 mg PO Q4H PRN PRN Reason: FEVER/PAIN Albuterol (Ventolin Hfa Inhaler*) 2 puff INH QID PRN PRN Reason: SHORTNESS OF BREATH Amiodarone HCl (Cordarone Tab*) 100 mg PO MoFr@0900 [facility] Last Admin: 07/22/17 22:28 Dose: 100 mg Aspirin (Aspirin Ec Tab*) 81 mg PO DAILY [facility] Last Admin: 07/23/17 08:51 Dose: 81 mg Carvedilol (Coreg Tab*) 12.5 mg PO BID [facility] Last Admin: 07/23/17 20:32 Dose: 12.5 mg Eplerenone (Inspra (Nf)) 12.5 mg PO DAILY [facility] PRN Reason: Protocol Last Admin: 07/23/17 08:52 Dose: 12.5 mg Melatonin (Melatonin (Nf)) 3 mg PO BEDTIME PRN; Protocol PRN Reason: SLEEP Last Admin: 07/22/17 22:11 Dose: 3 mg Metaxalone (Skelaxin Tab*) 400 mg PO TID PRN PRN Reason: PAIN Metoclopramide HCl (Reglan Tab*) 10 mg PO TID WITH MEALS PRN PRN Reason: NAUSEA Last Admin: 07/23/17 17:06 Dose: 10 mg Nitroglycerin (Nitroglycerin 10 Mg Patch*) 1 patch TRANSDERM DAILY [facility] Last Admin: 07/23/17 08:51 Dose: 1 patch Omeprazole (Prilosec Cap*) 20 mg PO DAILY@0730 [facility] Last Admin: 07/23/17 07:48 Dose: 20 mg Ondansetron HCl (Zofran Inj*) 4 mg IV Q6H PRN PRN Reason: NAUSEA Ondansetron HCl (Zofran Tab*) 4 mg PO Q6H PRN PRN Reason: NAUSEA/VOMITING Rosuvastatin Calcium (Crestor (Nf)) 10 mg PO BEDTIME [facility] PRN Reason: Protocol Last Admin: 07/23/17 20:32 Dose: 10 mg Warfarin Sodium (Coumadin Tab(*)) 5 mg PO SuTuWeThSa@1700 [facility] PRN Reason: Protocol Last Admin: 07/23/17 17:06 Dose: 5 mg Warfarin Sodium (Coumadin Tab(*)) 2.5 mg PO MoFr@1700 [facility] PRN Reason: Protocol Last Admin: 07/22/17 22:12 Dose: 2.5 mg Vital Signs - 8 hr 07/23/17 07/24/17 07/24/17 23:37 00:00 03:51 Temperature 97.6 F 97.5 F Pulse Rate 60 62 Respiratory 20 20 Rate Blood Pressure 125/46 115/43 (mmHg) O2 Sat by Pulse 96 96 97 Oximetry Oxygen Devices in Use Now: None Appearance: Alert, partly up in bed. In good spirits. Looks comfortable. Eyes: No Scleral Icterus Ears/Nose/Mouth/Throat: Clear Oropharnyx, Mucous Membranes Moist Neck: NL Appearance and Movements; NL JVP, No Thyroid Enlargement, Masses Respiratory: Symmetrical Chest Expansion and Respiratory Effort, Clear to Auscultation, Clear to Percussion Cardiovascular: NL Sounds; No Murmurs; No JVD, RRR, No Edema, - Abdominal: NL Sounds; No Tenderness; No Distention, No Hepatosplenomegaly, - Extremities: No Edema, No Clubbing, Cyanosis, - Skin: No Rash or Ulcers, No Nodules or Sclerosis, - Neurological: Alert and Oriented x 3, NL Sensation Result Diagrams: 07/23/17 05:28 07/23/17 05:28 Assess/Plan/Problems-Billing Assessment: - Patient Problems (1) Chest pain Current Visit: No Status: Acute Priority: High Onset Date: 12/01/13 Code (s): R07.9 - CHEST PAIN, UNSPECIFIED SNOMED Code(s): 68176296 Comment: No further pain. Trops negative. Last stress test in 2014. Given that patient would not want cardiac catheterization and has negative troponins, no further testing indicated. (2) Paroxysmal a-fib Current Visit: No Status: Chronic Code(s): I48.0 - PAROXYSMAL ATRIAL FIBRILLATION SNOMED Code(s): 846325908 Comment: Paced rhythm, Continue warfarin, amiodarone and carvedilol. INR in therapeutic range. (3) Gastroparesis Current Visit: No Status: Acute Code(s): K31.84 - GASTROPARESIS SNOMED Code(s): 595710595 Comment: Continue reglan TID. (4) CAD (coronary artery disease) Current Visit: No Status: Chronic Priority: High Onset Date: 11/23/13 Code(s): I25.10 - ATHSCL HEART DISEASE OF [place] CORONARY ARTERY W/O ANG PCTRS SNOMED Code(s): 291710095 Comment: No Signs of ACS Continue betablocker, statin, NTG patch, ASA. (5) HTN (hypertension) Current Visit: No Status: Chronic Code(s): I10 - ESSENTIAL (PRIMARY) HYPERTENSION SNOMED Code(s): 58647995 Comment: Continue carvedilol, nitro patch. Status and Disposition: Plan discharge 07/24. Fup Dr. Peck.
--- NOTE | 2017-07-24 12:47 | DS ---
CC: Dr. Peck; Dr. Guevara DISCHARGE SUMMARY: DATE OF ADMISSION: 07/22/17 DATE OF DISCHARGE: 07/24/17 HISTORY OF PRESENT ILLNESS: This is 86-year-old man presented with chest pain, the history is detail ed in the admission note. The pain was constant all day. He felt it was tender when he touched his own chest. He is rather sedentary and did not notice any increased pain with any exertion he did. H e was not short of breath. He had no nausea or other associated symptoms. His weight has been stable . The patient was admitted to a telemetry unit. He had 4 troponin levels, all of which were within nor mal limits. His pain resolved. He seemed quite well for the last 24 hours before discharge. I suspect this was not cardiac in nature. The patient, I do not think, recall the symptoms all that well at the time of discharge. FINAL DIAGNOSES: 1. Atypical chest pain. 2. Paroxysmal atrial fibrillation. 3. Gastroparesis. 4. Coronary artery disease. 5. Hypertension. DISCHARGE MEDICATIONS: 1. Acetaminophen 650 mg every 4 hours p.r.n. 2. Carvedilol 12.5 mg b.i.d. 3. Pantoprazole 40 mg daily. 4. Warfarin 5 mg 5 days a week and 2.5 mg the other 2 days. 5. Ondansetron 4 mg every 6 hours p.r.n. 6. Rosuvastatin 10 mg h.s. 7. Eplerenone 12.5 mg daily. 8. Aspirin 81 mg daily. 9. Amiodarone 100 mg every Tuesday and Tuesday. 10. Nitroglycerin 0.4 mg per hour patch daily. 11. Metoclopramide 10 mg daily p.r.n. 12. Albuterol inhaler 2 puffs four times a day p.r.n. 13. Metaxalone 400 mg t.i.d. p.r.n. 14. Cyanocobalamin 1000 mcg IM monthly. 15. Guaifenesin 600 mg p.o. b.i.d. p.r.n. 16. Melatonin 3 mg h.s. p.r.n. [id number]/[facility] #: [id number]
== END 2017-07-24 07:37 | disposition home or self-care (01) ==
LOC: ED 15:52 → MEDTELE 19:16
PROVIDERS: ADMIT Internal Medicine; ATTEND Internal Medicine
DX: R07.89 Other chest pain (principal); I48.0 Paroxysmal atrial fibrillation; Z79.01 Long term (current) use of anticoagulants; K31.84 Gastroparesis; I25.10 Atherosclerotic heart disease of native coronary artery without angina pectoris; I42.9 Cardiomyopathy, unspecified; I25.5 Ischemic cardiomyopathy; I44.7 Left bundle-branch block, unspecified; I25.2 Old myocardial infarction; I11.0 Hypertensive heart disease with heart failure; I50.9 Heart failure, unspecified; Z79.899 Other long term (current) drug therapy; Z88.8 Allergy status to other drugs, medicaments and biological substances; Z88.1 Allergy status to other antibiotic agents; Z95.0 Presence of cardiac pacemaker; R94.31 Abnormal electrocardiogram [ECG] [EKG]
CPT/HCPCS: 36415; 71045; 80048; 80053; 80061; 81003; 81015; 82550; 82553; 83036; 83605; 83735; 83880; 84436; 84443; 84484; 85025; 85379; 85610; 85730; 87086; 93005; 94760; 99284; A9270-GY; G0378

== ENCOUNTER 2018-03-13 11:06 | Emergency (ER) | payer MEDICARE ==
--- NOTE | 2018-03-13 11:23 | ED ---
Abdominal Pain/Male - HPI Summary HPI Summary: The pt is an 87 y/o male presenting to [facility] accompanied by his c/o RUQ abd pain since 1 week ago. He notes cough with yellow phlegm, ear pain, chest congestion, decreased appetite , nausea and vomiting (all day 6 days ago), weight loss (7 lbs) , and diaphoresis but denies back pain , diarrhea , dizziness, lightheadedness, dysuria, hematuria and body aches . Coughing aggravates the throat pain. He got his flu shot this year. He reports Coumadin and Tylenol use but denies Motrin and Ibuprofen intake. PSHx: cholecystectomy. Home Medications Medication Instructions Recorded Confirmed Type Carvedilol TAB* [Coreg TAB*] 12.5 mg PO BID 10/06/13 07/22/17 History Pantoprazole TAB (NF) [Protonix 40 mg PO DAILY 10/06/13 07/22/17 History TAB (NF)] Warfarin TAB(*) [Coumadin TAB(*)] 5 mg PO SUTUWETHSA 11/23/13 07/22/17 History Ondansetron TAB* [Zofran 4 MG Tab*] 4 mg PO Q6H PRN 12/21/13 07/22/17 History Rosuvastatin (NF) [Crestor (NF)] 10 mg PO BEDTIME 12/21/13 07/22/17 History Epleronone (NF) [Inspra (NF)] 12.5 mg PO DAILY 05/29/14 07/22/17 History Amiodarone TAB* [Cordarone Tab*] 100 mg PO MOFR 09/18/14 07/22/17 History Aspirin EC TAB* [Ecotrin EC Low 81 mg PO DAILY 09/18/14 07/22/17 History Dose 81 MG*] Warfarin TAB(*) [Coumadin TAB(*)] 2.5 mg PO MOFR 03/19/15 07/22/17 History Metoclopramide TAB* [Reglan TAB*] 10 mg PO DAILY PRN 03/21/17 07/22/17 History Nitroglycerin 0.4 MG/HR PATCH* 1 patch TRANSDERM DAILY 03/21/17 07/22/17 History [Nitroglycerin 10 MG PATCH*] Albuterol HFA INHALER* [Ventolin 2 puff INH QID PRN 06/09/17 07/22/17 History HFA Inhaler*] Cyanocobalamin INJ * [Vitamin B12 1,000 mcg IM MONTHLY 06/09/17 07/22/17 History INJ *] Metaxalone 400 mg PO TID PRN 06/09/17 07/22/17 History guaiFENesin ER TAB [Mucinex*] 600 mg PO BID PRN 06/09/17 07/22/17 History Melatonin 3 mg PO BEDTIME PRN 07/22/17 07/22/17 History Acetaminophen TAB* [Tylenol TAB*] 650 mg PO Q4H PRN tab 07/23/17 Rx - History of Current Complaint Chief Complaint: EDAbdPain Stated Complaint: COUGH Time Seen by Provider: 03/13/18 11:16 Hx Obtained From: Patient, Family/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 Negative: Dizzy, Back Pain, Urinary Symptoms, Diarrhea - Allergies/Home Medications Allergies/Adverse Reactions: Allergies Allergy/AdvReac Type Severity Reaction Status Date / Time atorvastatin AdvReac Muscle Ache Verified 03/13/18 11:12 erythromycin base AdvReac Pain Verified 03/13/18 11:12 metoclopramide AdvReac See Comment Verified 03/13/18 11:12 PACEMAKER- NO MRIs AdvReac NO Uncoded 03/13/18 11:12 MRIs-PACEMAKER Home Medications: Home Medications Benzonatate CAP* [Tessalon 100 MG CAP*] 100 mg PO TID PRN 03/13/18 [History Confirmed 03/13/18] Carvedilol TAB* [Coreg TAB*] 6.25 mg PO BID 03/13/18 [History Confirmed 03/13/18 ] Ferrous Sulfate TAB* 325 mg PO DAILY 03/13/18 [History Confirmed 03/13/18] Fluticasone NASAL SPRAY 50MCG* [Flonase NASAL SPRAY 50MCG*] 2 spray BOTH NARES DAILY PRN 03/13/18 [History Confirmed 03/13/18] Iron Polysaccharide Complex [Ferrex 150] 150 mg PO DAILY 03/13/18 [History Confirmed 03/13/18] Nitroglycerin 0.1 mg/Hr PATCH* [Nitroglycerin 2.5 MG PATCH*] 1 patch TRANSDERM DAILY 03/13/18 [History Confirmed 03/13/18] Nitroglycerin TAB 0.4 MG* 0.4 mg SL Q5M PRN 03/13/18 [History Confirmed 03/13/18 ] Pantoprazole TAB (NF) [Protonix TAB (NF)] 40 mg PO DAILY 03/13/18 [History Confirmed 03/13/18] PMH/Surg Hx/FS Hx/Imm Hx Previously Healthy: No Endocrine/Hematology History: Reports: Hx Anticoagulant Therapy - on warfarin , Hx Blood Transfusions Denies: Hx Blood Disorders, Hx Bone Marrow Disease, Hx Diabetes, Hx Systemic Lupus Erythematosus, Hx Sickle Cell Disease, Hx Thyroid Disease, Hx Anemia, Hx Unexplained Bleeding, Other Endocrine/Hematological Disorders Cardiovascular History: Reports: Hx Angina, Hx Auto Implanted Cardiovert Defib, Hx Cardiac Arrest, Hx Congestive Heart Failure, Hx Coronary Artery Disease, Hx Hypercholesterolemia, Hx Hypotension, Hx Hypertension, Hx Myocardial Infarction , Hx Pacemaker/ICD, Other Cardiovascular Problems/Disorders - ischemic cardiomyopathy Denies: Hx Aneurysm, Hx Angioplasty, Hx Cardiomegaly, Hx Congenital Heart Disease, Hx Deep Vein Thrombosis, Hx Embolism, Hx Peripheral Vascular Disease, Hx Rheumatic Fever, Hx Syncope, Hx Valvular Heart Disease Respiratory History: Reports: Hx Chronic Bronchitis, Hx Pneumonia, Hx Pulmonary Edema, Hx Seasonal Allergies, Other Respiratory Problems/Disorders - PNA Denies: Hx Asthma, Hx Chronic Obstructive Pulmonary Disease (COPD), Hx Cystic Fibrosis, Hx Lung Cancer, Hx Pleural Effusion, Hx Pulmonary Embolism, Hx Sleep Apnea GI History: Reports: Hx Gall Bladder Disease - cholecystectomy, Hx Gastroesophageal Reflux Disease, Hx Hiatal Hernia - repair x2, Other GI Disorders - inability to digest food Denies: Hx Cirrhosis, Hx Crohn's Disease, Hx Diverticulosis, Hx Gastrointestinal Bleed, Hx Irritable Bowel, Hx Jaundice, Hx Obstructive Bowel, Hx Ileostomy, Hx Pyloric Stenosis, Hx Ulcer History: Reports: Hx Benign Prostatic Hyperplasia, Other Problems/ Disorders - prostate surgery Denies: Hx Acute Renal Failure, Hx Chronic Renal Failure, Hx Dialysis, Hx Kidney Infection, Hx Kidney Stones, Hx Renal Disease Musculoskeletal History: Reports: Hx Arthritis, Hx Back Problems - herniated disk, Hx Congenital Bone Abnormalities - upper back, Hx Orthopedic Injury - left knee replaced, Other Musculoskeletal History - Total Knee Replacement Left, Denies: Hx Rheumatoid Arthritis, Hx Bursitis, Hx Fibromyalgia, Hx Gout, Hx Osteoporosis, Hx Scoliosis, Hx Tendonitis Sensory History: Denies: Hx Cataracts, Hx Contacts or Glasses, Hx Eye Injury, Hx Eye Prosthesis, Hx Glaucoma, Hx Legally Blind, Hx Macular Degeneration, Hx Vision Problem, Hx Deafness, Hx Hearing Aid, Hx Hearing Problem, Other Sensory Impairments Opthamlomology History: Denies: Hx Cataracts, Hx Contacts or Glasses, Hx Eye Injury, Hx Eye Prosthesis, Hx Glaucoma, Hx Legally Blind, Hx Macular Degeneration, Hx Vision Problem, Other Sensory Impairments Neurological History: Reports: Other Neuro Impairments/Disorders - laminectomy Denies: Hx Dementia, Hx Developmental Delay, Hx Headaches, Hx Migraine, Hx Nerve Disease, Hx Seizures, Hx Spinal Cord Injury, Hx Transient Ischemic Attacks (TIA) Psychiatric History: Denies: Hx Anxiety, Hx Attention Deficit Hyperactivity Disorder, Hx Eating Disorder, Hx Depression, Hx Panic Disorder, Hx Post Traumatic Stress Disorder, Hx Inpatient Treatment, Hx Community Mental Health Tx, Hx Schizophrenia, Hx Bipolar Disorder, Hx Suicide Attempt, Hx Substance Abuse, Other Psychiatric Issues/Disorders - Cancer History Cancer Type, 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 cholecystectomy 1994, hiatal hernia , CABG, Back Sx, Prostate Sx, Stents, Cardiac cath with bypass Hx Anesthesia Reactions: No Infectious Disease History: No Infectious Disease History: Denies: Hx Clostridium Difficile, Hx Hepatitis, Hx Human Immunodeficiency Virus (HIV), Hx of Known/Suspected MRSA, Hx Shingles, Hx Tuberculosis, Hx Known/ Suspected VRE, Traveled Outside the [place] in Last 30 Days - Family History Known Family History: Positive: Cardiac Disease - In both brothers - Social History Occupation: Retired Lives: With Family Alcohol Use: None Hx Substance Use: No Substance Use Type: Reports: None Hx Tobacco Use: No Smoking Status (MU): Never Smoked Tobacco Review of Systems Constitutional: Negative - Dizziness, lightheadedness,body aches , Other - Positive: chest congestion, 7lb weight loss Positive: Skin Diaphoresis Positive: Ear Ache Respiratory: Other - Positive: Chest congestion Positive: Cough Positive: Abdominal Pain, Vomiting - 6 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 Negative: Diarrhea Negative: dysuria, hematuria Musculoskeletal: Negative - Back pain All Other Systems Reviewed And Are Negative: Yes Physical Exam - Summary Physical Exam Summary: Constitutional: Well-developed, Well-nourished, Alert. (-) Distressed Skin: Warm, Dry HENT: Normocephalic; Atraumatic Eyes: Conjunctiva normal Neck: Musculoskeletal ROM normal neck. (-) JVD, (-) Stridor, (-) Tracheal deviation Cardio: Rhythm regular, rate normal, Heart sounds normal; Intact distal pulses; The pedal pulses are 2+ and symmetric. Radial pulses are 2+ and symmetric. (-) Murmur Pulmonary/Chest wall: Effort normal. (-) Respiratory distress, (-) Wheezes, (-) Rales Abd: Soft, (-) epigastric tenderness, (+) RUQ tenderness, (-) Distension, (-) Guarding, (-) Rebound Musculoskeletal: (-) Edema Lymph: (-) Cervical adenopathy Neuro: Alert, Oriented x3 Psych: Mood and affect Normal Triage Information Reviewed: Yes Vital Signs On Initial Exam: Initial Vitals Temp Pulse Resp BP Pulse Ox 96.0 F 60 14 141/52 98 03/13/18 11:08 03/13/18 11:08 03/13/18 11:08 03/13/18 11:08 03/13/18 11:08 Vital Signs Reviewed: Yes Diagnostics - Vital Signs Vital Signs Temp Pulse Resp BP Pulse Ox 03/13/18 11:08 96.0 F 60 14 141/52 98 - Laboratory Result Diagrams: 03/13/18 11:50 03/13/18 11:51 Lab Statement: Any lab studies that have been ordered have been reviewed, and results considered in the medical decision making process. - Radiology CXR Radiology Interpretation Completed By: Radiologist Summary of Radiographic Findings: IMPRESSION: COPD. The ED physician reviewed this radiology report. - CT Abd/Pel CT CT Interpretation Completed By: Radiologist Summary of CT Findings: IMPRESSION: 1.ANTERIOR ABDOMINAL WALL HERNIA CONTAINING THE ANTERIOR WALL OF THE STOMACH SLIGHTLY INCREASED IN SIZE. 2. STATUS POST CHOLECYSTECTOMY. The ED physician reviewed this radiology report. - EKG 11:36 Cardiac Rate: NL - 60 bpm Summary of EKG Findings: Paced rythm. No STEMI. Re-Evaluation - Re-Evaluation First Eval Re-Evaluation Time: 15:38 Change: Improved Comment: The abd pain has improved. The pt is hungry and is eating a turkey sandwich. Abdominal Pain Fem Course/Dx - Course Course Of Treatment: An 87 year-old M presents to the ED with a CC of RUQ abd pain since 1 week ago. He notes cough with yellow phlegm, ear pain, sore throat , chest congestion, decreased appetite , nausea and vomiting (all day 6 days ago), weight loss (7 lbs) , and diaphoresis but denies back pain , diarrhea , dizziness, lightheadedness, dysuria, hematuria and body aches . A physical exam revealed RUQ tenderness. A CXR reveals COPD. An EKG reveals a paced rhythm. An abd/Pel Ct reveals an anterior abdominal wall hernia containing the anterior wall of the stomach slightly increased in size s/p a cholecystectomy. In the ED course, pt was given Acetaminophen 975 mg PO and Lidocaine 2% 15 ml PO which improved the symptoms. Hernia is aggravated by repeated coughing. We will prescribe a cough suppressant for night time use. Patient will be discharged with a final Dx of abdominal hernia, URI and execssive anticoagulation. I instructed the pt to hold off Coumadin use until instructed futrther. Pt is agreeable with this plan. Allergies noted. - Diagnoses Provider Diagnoses: Abdominal hernia, URI (upper respiratory infection), Excessive anticoagulation Discharge - Sign-Out/Discharge Documenting (check all that apply): Patient Departure - DC - Discharge Plan Condition: Improved Disposition: HOME Prescriptions: Codeine Phosphate/Guaifenesin [Codeine-Guaifen 10-100 mg/5 ml] 5 ml PO QPM PRN # 25 ml MDD 5 ml PRN Reason: Cough Patient Education Materials: Warfarin (By mouth), Upper Respiratory Infection ( ED), Ventral Hernia (ED) Referrals: Duy Peck MD [Primary Care Provider] - Additional Instructions: Hold Coumadin until further notice Follow up with PCP in 2 days. Return to ED for any new or worsening symptoms - Billing Disposition and Condition Condition: IMPROVED Disposition: Home - Attestation Statements Document Initiated by Scribe: Yes Documenting Scribe: Francine Friend Provider For Whom Scribe is Documenting (Include Credential): Dr. Tomi Wood MD Scribe Attestation: Francine Christian , scribed for Dr. Tomi Wood MD on 03/15/18 at 1112. Scribe Documentation Reviewed: Yes Provider Attestation: The documentation as recorded by the scribe, Francine Friend accurately reflects the service I personally performed and the decisions made by me, Dr. Tomi Wood MD Status of Scribe Document: Viewed
[2018-03-13] MEDS ORDERED: Lidocaine 2% VISCOUS* 15 ML UDC PO ONE (11:27)
[2018-03-13] MEDS ORDERED: Acetaminophen TAB* 325 MG PO ONE (11:27)
[2018-03-13 12:01] LABS: ABS Basophils 0.1 10^3/ul (0-0.2); ABS Eosinophils 0.2 10^3/ul (0-0.6); ABS Lymphocytes 2.1 10^3/ul (1.0-4.8); ABS Monocytes 0.8 10^3/ul (0-0.8); ABS Neutrophils 6.4 10^3/ul (1.5-7.7); ABS Nucleated RBC 0 10^3/ul; Eosinophil % 1.7 %; Hematocrit 41 % (42-52); Hemoglobin 13.8 g/dl (14.0-18.0); Lymphocyte % 21.8 %; Mean Corpuscular HGB Conc 34 g/dl (31-36); Mean Corpuscular Hemoglobin 32 pg (27-31); Mean Corpuscular Volume 96 fL (80-94); Mean Platelet Volume 6.7 fL (7.4-10.4); Nucleated Red Blood Cells % 0; Platelet Count 480 10^3/ul (150-450); Red Blood Count 4.28 10^6/ul (4.00-5.40); Red Cell Distribution Width 13 % (10.5-15); White Blood Count 9.4 10^3/ul (3.5-10.8)
[2018-03-13 12:24] LABS: EGFR Non-African American 50.2 (>60)
[2018-03-13 12:59] LABS: INR 6.27 (0.77-1.02)
[2018-03-13] MEDS ORDERED: Iodixanol* (CONTRAST) 320 MG/ML 100 ML SDV IV ONE (14:19)
[2018-03-13 16:24] VITALS: BP 139/61
== END 2018-03-13 16:26 | disposition home or self-care (01) ==
LOC: ED 11:06
DX: K46.9 Unspecified abdominal hernia without obstruction or gangrene (principal); J06.9 Acute upper respiratory infection, unspecified; Z79.01 Long term (current) use of anticoagulants; I50.9 Heart failure, unspecified; I10 Essential (primary) hypertension; I25.2 Old myocardial infarction; Z95.810 Presence of automatic (implantable) cardiac defibrillator; Z85.828 Personal history of other malignant neoplasm of skin; J44.9 Chronic obstructive pulmonary disease, unspecified
CPT/HCPCS: 36415; 71046; 74177; 80053; 83605; 83690; 85025; 85610; 85730; 86140; 93005; 96374; 99282; A9270-GY; Q9967

== ENCOUNTER 2018-04-20 21:33 | Emergency (ER) | payer MEDICARE ==
[2018-04-20] MEDS ORDERED: Albuterol/Ipratropium NEB.SOL* Albuterol 2.5 MG/Ipratropium 0.5 MG 3 ML INH ONE (23:48)
[2018-04-20] MEDS ORDERED: Albuterol 2.5 MG/3 ML NEB.SOL* (0.083%) INH ONE (23:48)
--- NOTE | 2018-04-20 23:56 | ED ---
Shortness of Breath - HPI Summary HPI Summary: This patient is an 87 year old M presenting to [facility] accompanied by his with a chief complaint of SOB since 1 week ago. The patient rates the pain 4/10 in severity. Symptoms aggravated by nothing. Symptoms alleviated by nothing. Patient reports cough and pleuritic chest pain since 2 months ago. Patient denies fever. - History of Current Complaint Chief Complaint: EDUpperRespComplaint Time Seen by Provider: 04/20/18 23:39 Hx Obtained From: Patient, Family/Unmanned Equipment Operator - patient's Onset/Duration: Gradual Onset, Lasting Weeks, Still Present Timing: Constant Current Severity: Mild Dyspnea At: Rest Aggrevating Factors: Nothing Alleviating Factors: Nothing Associated Signs & Symptoms: Negative - negative fever, Cough (Nonproductive), Chest Pain w/Cough - Allergy/Home Medications Allergies/Adverse Reactions: Allergies Allergy/AdvReac Type Severity Reaction Status Date / Time atorvastatin AdvReac Muscle Ache Verified 04/20/18 21:42 erythromycin base AdvReac Pain Verified 04/20/18 21:42 PMH/Surg Hx/FS Hx/Imm Hx Endocrine/Hematology History: Reports: Hx Anticoagulant Therapy - on warfarin , Hx Blood Transfusions Denies: Hx Blood Disorders, Hx Bone Marrow Disease, Hx Diabetes, Hx Systemic Lupus Erythematosus, Hx Sickle Cell Disease, Hx Thyroid Disease, Hx Anemia, Hx Unexplained Bleeding, Other Endocrine/Hematological Disorders Cardiovascular History: Reports: Hx Angina, Hx Auto Implanted Cardiovert Defib, Hx Cardiac Arrest, Hx Congestive Heart Failure, Hx Coronary Artery Disease, Hx Hypercholesterolemia, Hx Hypotension, Hx Hypertension, Hx Myocardial Infarction , Hx Pacemaker/ICD, Other Cardiovascular Problems/Disorders - ischemic cardiomyopathy Denies: Hx Aneurysm, Hx Angioplasty, Hx Cardiomegaly, Hx Congenital Heart Disease, Hx Deep Vein Thrombosis, Hx Embolism, Hx Peripheral Vascular Disease, Hx Rheumatic Fever, Hx Syncope, Hx Valvular Heart Disease Respiratory History: Reports: Hx Chronic Bronchitis, Hx Pneumonia, Hx Pulmonary Edema, Hx Seasonal Allergies, Other Respiratory Problems/Disorders - PNA Denies: Hx Asthma, Hx Chronic Obstructive Pulmonary Disease (COPD), Hx Cystic Fibrosis, Hx Lung Cancer, Hx Pleural Effusion, Hx Pulmonary Embolism, Hx Sleep Apnea GI History: Reports: Hx Gall Bladder Disease - cholecystectomy, Hx Gastroesophageal Reflux Disease, Hx Hiatal Hernia - repair x2, Other GI Disorders - inability to digest food Denies: Hx Cirrhosis, Hx Crohn's Disease, Hx Diverticulosis, Hx Gastrointestinal Bleed, Hx Irritable Bowel, Hx Jaundice, Hx Obstructive Bowel, Hx Ileostomy, Hx Pyloric Stenosis, Hx Ulcer History: Reports: Hx Benign Prostatic Hyperplasia, Other Problems/ Disorders - prostate surgery Denies: Hx Acute Renal Failure, Hx Chronic Renal Failure, Hx Dialysis, Hx Kidney Infection, Hx Kidney Stones, Hx Renal Disease Musculoskeletal History: Reports: Hx Arthritis, Hx Back Problems - herniated disk, Hx Congenital Bone Abnormalities - upper back, Hx Orthopedic Injury - left knee replaced, Other Musculoskeletal History - Total Knee Replacement Left, Denies: Hx Rheumatoid Arthritis, Hx Bursitis, Hx Fibromyalgia, Hx Gout, Hx Osteoporosis, Hx Scoliosis, Hx Tendonitis Sensory History: Denies: Hx Cataracts, Hx Contacts or Glasses, Hx Eye Injury, Hx Eye Prosthesis, Hx Glaucoma, Hx Legally Blind, Hx Macular Degeneration, Hx Vision Problem, Hx Deafness, Hx Hearing Aid, Hx Hearing Problem, Other Sensory Impairments Opthamlomology History: Denies: Hx Cataracts, Hx Contacts or Glasses, Hx Eye Injury, Hx Eye Prosthesis, Hx Glaucoma, Hx Legally Blind, Hx Macular Degeneration, Hx Vision Problem, Other Sensory Impairments Neurological History: Reports: Other Neuro Impairments/Disorders - laminectomy Denies: Hx Dementia, Hx Developmental Delay, Hx Headaches, Hx Migraine, Hx Nerve Disease, Hx Seizures, Hx Spinal Cord Injury, Hx Transient Ischemic Attacks (TIA) Psychiatric History: Denies: Hx Anxiety, Hx Attention Deficit Hyperactivity Disorder, Hx Eating Disorder, Hx Depression, Hx Panic Disorder, Hx Post Traumatic Stress Disorder, Hx Inpatient Treatment, Hx Community Mental Health Tx, Hx Schizophrenia, Hx Bipolar Disorder, Hx Suicide Attempt, Hx Substance Abuse, Other Psychiatric Issues/Disorders - Cancer History Cancer Type, 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 cholecystectomy 1994, hiatal hernia , CABG, Back Sx, Prostate Sx, Stents, Cardiac cath with bypass Hx Anesthesia Reactions: No Infectious Disease History: No Infectious Disease History: Denies: Hx Clostridium Difficile, Hx Hepatitis, Hx Human Immunodeficiency Virus (HIV), Hx of Known/Suspected MRSA, Hx Shingles, Hx Tuberculosis, Hx Known/ Suspected VRE, Traveled Outside the [place] in Last 30 Days - Family History Known Family History: Positive: Cardiac Disease - In both brothers - Social History Alcohol Use: None Hx Substance Use: No Substance Use Type: Reports: None Hx Tobacco Use: No Smoking Status (MU): Never Smoked Tobacco Review of Systems Negative: Fever Negative: Epistaxis Positive: Chest Pain - pleuritic chest pain Positive: Shortness Of Breath, Cough Negative: Headache All Other Systems Reviewed And Are Negative: Yes Physical Exam - Summary Physical Exam Summary: VITAL SIGNS: Reviewed. GENERAL: Patient is a well-developed and nourished MALE who is lying comfortable in the stretcher. Patient is not in any acute respiratory distress. HEAD AND FACE: No signs of trauma. No ecchymosis, hematomas or skull depressions. No sinus tenderness. EYES: PERRLA, EOMI x 2, No injected conjunctiva, no nystagmus. EARS: Hearing grossly intact. Ear canals and tympanic membranes are within normal limits. MOUTH: Oropharynx within normal limits. NECK: Supple, trachea is midline, no adenopathy, no JVD, no carotid bruit, no c- spine tenderness, neck with full ROM. CHEST: Symmetric, no tenderness at palpation LUNGS: decreased breath sounds bilaterally. No wheezing or crackles. CVS: Regular rate and rhythm, S1 and S2 present, no murmurs or gallops appreciated. ABDOMEN: Soft, non-tender. No signs of distention. No rebound no guarding, and no masses palpated. Bowel sounds are normal. EXTREMITIES: FROM in all major joints, no edema, no cyanosis or clubbing. NEURO: Alert and oriented x 3. No acute neurological deficits. Speech is normal and follows commands. SKIN: Dry and warm Triage Information Reviewed: Yes Vital Signs On Initial Exam: Initial Vitals Temp Pulse Resp BP Pulse Ox 97.5 F 60 16 170/64 98 04/20/18 21:35 04/20/18 21:35 04/20/18 21:35 04/20/18 21:35 04/20/18 21:35 Vital Signs Reviewed: Yes Diagnostics - Vital Signs Vital Signs Temp Pulse Resp BP Pulse Ox 04/20/18 21:35 97.5 F 60 16 170/64 98 - Laboratory Lab Statement: Any lab studies that have been ordered have been reviewed, and results considered in the medical decision making process. - Radiology CXR Radiology Interpretation Completed By: ED Physician - Dr. Miller, pending official report Summary of Radiographic Findings: no acute process Course/Dx - Course Course Of Treatment: This patient is an 87 year old M presenting to [facility] accompanied by his with a chief complaint of SOB since 1 week ago. The patient rates the pain 4/10 in severity. Symptoms aggravated by nothing. Symptoms alleviated by nothing. Patient reports cough and pleuritic chest pain since 2 months ago. Patient denies fever. CXR reveals, per ED physician pending official report, no acute process. Test results with no significant abnormalities. In the ED course the patient was given albuterol, codeine, and deltasone. Patient will be discharged with follow up from PCP. The patient is agreeable with this plan. - Diagnoses Provider Diagnoses: Reactive airway disease, Coughing Discharge - Sign-Out/Discharge Documenting (check all that apply): Patient Departure - discharge - Discharge Plan Condition: Stable Disposition: HOME Prescriptions: Albuterol HFA INHALER* [Ventolin HFA Inhaler*] 2 puff INH Q6H PRN #1 mdi PRN Reason: Cough Codeine TAB* [Codeine Tab*] 15 mg PO Q6H PRN #14 tab MDD 4 PRN Reason: Cough predniSONE [Prednisone 20 MG TAB] 40 mg PO DAILY #10 tablet Patient Education Materials: Reactive Airways Disease (ED) Referrals: Duy Peck MD [Primary Care Provider] - Additional Instructions: Follow up with primary care physician in 1-2 days. Return to the emergency department with any new or worsening symptoms. - Attestation Statements Document Initiated by Scribe: Yes Documenting Scribe: Misty Paez Provider For Whom Scribe is Documenting (Include Credential): Prema Miller MD Scribe Attestation: Misty Christian, scribed for Prema Miller MD on 04/21/18 at 0043. Status of Scribe Document: Ready
[2018-04-21] MEDS ORDERED: predniSONE TAB* 20 MG PO ONE (00:39)
[2018-04-21] MEDS ORDERED: Codeine TAB* 15 MG PO ONE (00:40)
[2018-04-21] MEDS ORDERED: Albuterol HFA INHALER* 8 gm MDI INH SCH (01:00)
[2018-04-21 01:18] VITALS: BP 150/55
== END 2018-04-21 01:18 | disposition home or self-care (01) ==
LOC: ED 21:33
DX: J45.909 Unspecified asthma, uncomplicated (principal); R06.02 Shortness of breath; Z79.01 Long term (current) use of anticoagulants; I25.10 Atherosclerotic heart disease of native coronary artery without angina pectoris; I25.2 Old myocardial infarction; Z85.828 Personal history of other malignant neoplasm of skin; R05 Cough; R07.9 Chest pain, unspecified
CPT/HCPCS: 71045; 99283; A9270-GY; J7512

== ENCOUNTER 2018-04-28 21:31 | Emergency (ER) | payer MEDICARE ==
--- NOTE | 2018-04-28 21:59 | ED ---
HPI Chest Pain - HPI Summary HPI Summary: 87 year old M presenting to [facility] accompanied by with a chief complaint of chest pain since 19:00 today after having dinner. The patient rates the pain 5/ 10 in severity. Symptoms aggravated by nothing. Symptoms alleviated by nothing. 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 reports cough and shortness of breath. Patient was seen by his primary care provider yesterday for bronchitis. He is taking antibiotics and was given an inhaler. Patient has cardiac hx. Patient has pacemaker. He has had heart surgery. - History of Current Complaint Chief Complaint: EDChestPainROMI Time Seen by Provider: 04/28/18 21:52 Hx Obtained From: Family/Shrimping Boat [employer] - Onset/Duration: Started Hours Ago - 19:00 today, Still Present Timing: Constant Current Severity: Moderate Pain Intensity: 5 Pain Scale Used: 0-10 Numeric Aggravating Factor(s): Nothing Alleviating Factor(s): Nothing Associated Signs and Symptoms: Positive: Other: - cough, shortness of breath - Additional Pertinent History Primary Care Physician: [id number] - Allergy/Home Medications Allergies/Adverse Reactions: Allergies Allergy/AdvReac Type Severity Reaction Status Date / Time atorvastatin AdvReac Muscle Ache Verified 04/20/18 21:42 erythromycin base AdvReac Pain Verified 04/20/18 21:42 PMH/Surg Hx/FS Hx/Imm Hx Previously Healthy: No Endocrine/Hematology History: Reports: Hx Anticoagulant Therapy - on warfarin , Hx Blood Transfusions Denies: Hx Blood Disorders, Hx Bone Marrow Disease, Hx Diabetes, Hx Systemic Lupus Erythematosus, Hx Sickle Cell Disease, Hx Thyroid Disease, Hx Anemia, Hx Unexplained Bleeding, Other Endocrine/Hematological Disorders Cardiovascular History: Reports: Hx Angina, Hx Auto Implanted Cardiovert Defib, Hx Cardiac Arrest, Hx Congestive Heart Failure, Hx Coronary Artery Disease, Hx Hypercholesterolemia, Hx Hypotension, Hx Hypertension, Hx Myocardial Infarction , Hx Pacemaker/ICD, Other Cardiovascular Problems/Disorders - ischemic cardiomyopathy Denies: Hx Aneurysm, Hx Angioplasty, Hx Cardiomegaly, Hx Congenital Heart Disease, Hx Deep Vein Thrombosis, Hx Embolism, Hx Peripheral Vascular Disease, Hx Rheumatic Fever, Hx Syncope, Hx Valvular Heart Disease Respiratory History: Reports: Hx Chronic Bronchitis, Hx Chronic Obstructive Pulmonary Disease (COPD), Hx Pneumonia, Hx Pulmonary Edema, Hx Seasonal Allergies, Other Respiratory Problems/Disorders - PNA Denies: Hx Asthma, Hx Cystic Fibrosis, Hx Lung Cancer, Hx Pleural Effusion, Hx Pulmonary Embolism, Hx Sleep Apnea GI History: Reports: Hx Gall Bladder Disease - cholecystectomy, Hx Gastroesophageal Reflux Disease, Hx Hiatal Hernia - repair x2, Other GI Disorders - inability to digest food Denies: Hx Cirrhosis, Hx Crohn's Disease, Hx Diverticulosis, Hx Gastrointestinal Bleed, Hx Irritable Bowel, Hx Jaundice, Hx Obstructive Bowel, Hx Ileostomy, Hx Pyloric Stenosis, Hx Ulcer History: Reports: Hx Benign Prostatic Hyperplasia, Other Problems/ Disorders - prostate surgery Denies: Hx Acute Renal Failure, Hx Chronic Renal Failure, Hx Dialysis, Hx Kidney Infection, Hx Kidney Stones, Hx Renal Disease Musculoskeletal History: Reports: Hx Arthritis, Hx Back Problems - herniated disk, Hx Congenital Bone Abnormalities - upper back, Hx Orthopedic Injury - left knee replaced, Other Musculoskeletal History - Total Knee Replacement Left, Denies: Hx Rheumatoid Arthritis, Hx Bursitis, Hx Fibromyalgia, Hx Gout, Hx Osteoporosis, Hx Scoliosis, Hx Tendonitis Sensory History: Denies: Hx Cataracts, Hx Contacts or Glasses, Hx Eye Injury, Hx Eye Prosthesis, Hx Glaucoma, Hx Legally Blind, Hx Macular Degeneration, Hx Vision Problem, Hx Deafness, Hx Hearing Aid, Hx Hearing Problem, Other Sensory Impairments Opthamlomology History: Denies: Hx Cataracts, Hx Contacts or Glasses, Hx Eye Injury, Hx Eye Prosthesis, Hx Glaucoma, Hx Legally Blind, Hx Macular Degeneration, Hx Vision Problem, Other Sensory Impairments Neurological History: Reports: Other Neuro Impairments/Disorders - laminectomy Denies: Hx Dementia, Hx Developmental Delay, Hx Headaches, Hx Migraine, Hx Nerve Disease, Hx Seizures, Hx Spinal Cord Injury, Hx Transient Ischemic Attacks (TIA) Psychiatric History: Denies: Hx Anxiety, Hx Attention Deficit Hyperactivity Disorder, Hx Eating Disorder, Hx Depression, Hx Panic Disorder, Hx Post Traumatic Stress Disorder, Hx Inpatient Treatment, Hx Community Mental Health Tx, Hx Schizophrenia, Hx Bipolar Disorder, Hx Suicide Attempt, Hx Substance Abuse, Other Psychiatric Issues/Disorders - Cancer History Cancer Type, 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 cholecystectomy 1994, hiatal hernia , CABG, Back Sx, Prostate Sx, Stents, Cardiac cath with bypass Hx Anesthesia Reactions: No Infectious Disease History: No Infectious Disease History: Denies: Hx Clostridium Difficile, Hx Hepatitis, Hx Human Immunodeficiency Virus (HIV), Hx of Known/Suspected MRSA, Hx Shingles, Hx Tuberculosis, Hx Known/ Suspected VRE, Traveled Outside the [place] in Last 30 Days - Family History Known Family History: Positive: Cardiac Disease - In both brothers - Social History Alcohol Use: None Hx Substance Use: No Substance Use Type: Reports: None Hx Tobacco Use: No Smoking Status (MU): Never Smoked Tobacco Review of Systems Positive: Chest Pain Positive: Shortness Of Breath, Cough All Other Systems Reviewed And Are Negative: Yes Physical Exam - Summary Physical Exam Summary: Appearance: Well-appearing, Well-nourished, lying in bed comfortably Skin: Warm, dry, no obvious rash Eyes: sclera anicteric, no conjunctival pallor ENT: mucous membranes moist, pharynx appears normal Neck: Supple, nontender Respiratory: Clear to auscultation, no signs of respiratory distress Cardiovascular: Normal S1, S2. No murmurs. Normal distal pulses in tibial and radial bilaterally. Abdomen: Soft, nontender, normal active bowel sounds present Musculoskeletal: Normal, Strength/ROM Intact Neurological: A&Ox3, awake and alert, mentation is normal, speech is fluent and appropriate Psychiatric: affect is normal, does not appear anxious or depressed Triage Information Reviewed: Yes Vital Signs On Initial Exam: Initial Vitals Temp Pulse Resp BP Pulse Ox 97.5 F 61 20 155/87 97 04/28/18 21:33 04/28/18 21:33 04/28/18 21:33 04/28/18 21:33 04/28/18 21:33 Vital Signs Reviewed: Yes Diagnostics - Vital Signs Vital Signs Temp Pulse Resp BP Pulse Ox 04/28/18 21:33 97.5 F 61 20 155/87 97 - Laboratory Result Diagrams: 04/28/18 22:40 04/28/18 22:40 Lab Statement: Any lab studies that have been ordered have been reviewed, and results considered in the medical decision making process. - Radiology CXR Radiology Interpretation Completed By: ED Physician Summary of Radiographic Findings: No active disease. Pending official report. - EKG 2155 Cardiac Rate: NL - 60 BPM Summary of EKG Findings: Atrial-ventricular dual-paced complexes. No further analysis attempted due to paced rhythm. Chest Pain Course/Dx - Course Course Of Treatment: 87 year old M presenting to [facility] accompanied by with a chief complaint of chest pain since 19:00 today after having dinner. 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 Patient was seen by his primary care provider yesterday for bronchitis. Patient has cardiac hx. Bloodwork, CXR, and EKG were unremarkable. Patient will be discharged home with instructions to follow up from his primary care provider and to return to ED for new or worsening symptoms. Patient and his are agreeable to this plan. - Diagnoses Provider Diagnoses: Chest wall pain, Bronchitis Discharge - Sign-Out/Discharge Documenting (check all that apply): Patient Departure - Discharge - Discharge Plan Condition: Good Disposition: HOME Patient Education Materials: Acute Bronchitis (ED), Chest Wall Pain (ED) Referrals: Duy Peck MD [Primary Care Provider] - 3 Days (if no better) - Attestation Statements Document Initiated by Scribe: Yes Documenting Scribe: Janett Correa Provider For Whom Scribe is Documenting (Include Credential): Teodoro Lucas MD Scribe Attestation: Janett Christian, scribed for Teodoro Lucas MD on 04/29/18 at 0418. Status of Scribe Document: Ready
[2018-04-28 22:50] LABS: ABS Basophils 0 10^3/ul (0-0.2); ABS Eosinophils 0 10^3/ul (0-0.6); ABS Lymphocytes 1.9 10^3/ul (1.0-4.8); ABS Neutrophils 13.9 10^3/ul (1.5-7.7); ABS Nucleated RBC 0 10^3/ul; Eosinophil % 0 %; Hematocrit 37 % (42-52); Lymphocyte % 11.3 %; Mean Corpuscular HGB Conc 33 g/dl (31-36); Mean Corpuscular Hemoglobin 32 pg (27-31); Mean Corpuscular Volume 97 fL (80-94); Mean Platelet Volume 6.6 fL (7.4-10.4); Nucleated Red Blood Cells % 0; Platelet Count 474 10^3/ul (150-450); Red Blood Count 3.78 10^6/ul (4.00-5.40); Red Cell Distribution Width 14 % (10.5-15); White Blood Count 16.8 10^3/ul (3.5-10.8)
[2018-04-28 23:14] LABS: Albumin 3.9 g/dL (3.2-5.2); Albumin/Globulin Ratio 1.5 (1-3); BUN/Creatinine Ratio 14.7 (8-20); Calcium 8.9 mg/dL (8.6-10.3); EGFR African American 77.8 (>60); EGFR Non-African American 64.3 (>60); Globulin 2.6 g/dL (2-4); Potassium 4.7 mmol/L (3.5-5.0); Total Bilirubin 0.4 mg/dL (0.2-1.0); Total Protein 6.5 g/dL (6.4-8.9); Troponin I 0.01 ng/mL (<0.04)
[2018-04-29 02:52] VITALS: BP 139/56
== END 2018-04-29 02:56 | disposition home or self-care (01) ==
LOC: ED 21:31
DX: R07.89 Other chest pain (principal); J40 Bronchitis, not specified as acute or chronic; I25.119 Atherosclerotic heart disease of native coronary artery with unspecified angina pectoris; I11.0 Hypertensive heart disease with heart failure; Z79.01 Long term (current) use of anticoagulants; Z95.5 Presence of coronary angioplasty implant and graft; Z95.1 Presence of aortocoronary bypass graft; Z95.0 Presence of cardiac pacemaker; Z96.652 Presence of left artificial knee joint; Z88.1 Allergy status to other antibiotic agents; Z88.8 Allergy status to other drugs, medicaments and biological substances
CPT/HCPCS: 36415; 71046; 80053; 83605; 83880; 84484; 85025; 93005; 99283

== ENCOUNTER 2018-09-20 17:34 | Observation (INO) | payer MEDICARE ==
--- NOTE | 2018-09-20 18:31 | ED ---
HPI Chest Pain - HPI Summary HPI Summary: This patient is a 87 year old M presenting to [facility] via ambulance with a chief complaint of CP since a few hours ago. The patient rates the pain 4/10 in severity. Symptoms aggravated by deep breathing. Symptoms alleviated by rest. The CP is on the left side and the patient currently describes it as dull. The CP is non-radiating. He has hx of CAD, CHF, pacemaker, cardiac arrest, HLD, [place]. Patient reports worsening nausea, SOB, dizziness, and possible syncopal episode. Patient denies vomiting. He does not remember his last stress test. - History of Current Complaint Chief Complaint: EDChestPainROMI Time Seen by Provider: 09/20/18 17:59 Hx Obtained From: Patient Onset/Duration: Started Hours Ago - 3, Still Present Timing: Constant, Lasting Hours - 3 Initial Severity: Moderate Current Severity: Mild Pain Intensity: 4 Pain Scale Used: 0-10 Numeric Chest Pain Location: Left Anterior, Left Lateral Chest Pain Radiates: No Character: Dull/Aching Aggravating Factor(s): Deep Breaths Alleviating Factor(s): Rest Associated Signs and Symptoms: Positive: Chest Pain, Dizziness, Shortness of Breath, Syncope - near-syncope, Nausea. Negative: Vomiting - Additional Pertinent History Primary Care Physician: [id number] - Allergy/Home Medications Allergies/Adverse Reactions: Allergies Allergy/AdvReac Type Severity Reaction Status Date / Time atorvastatin AdvReac Muscle Ache Verified 09/20/18 17:36 erythromycin base AdvReac Pain Verified 09/20/18 17:36 Home Medications: Home Medications Warfarin TAB(*) [Coumadin TAB(*)] 5 mg PO 1700 09/20/18 [History Confirmed 09/20] PMH/Surg Hx/FS Hx/Imm Hx Previously Healthy: No Endocrine/Hematology History: Reports: Hx Anticoagulant Therapy - on warfarin , Hx Blood Transfusions Denies: Hx Blood Disorders, Hx Bone Marrow Disease, Hx Diabetes, Hx Systemic Lupus Erythematosus, Hx Sickle Cell Disease, Hx Thyroid Disease, Hx Anemia, Hx Unexplained Bleeding, Other Endocrine/Hematological Disorders Cardiovascular History: Reports: Hx Angina, Hx Auto Implanted Cardiovert Defib, Hx Cardiac Arrest, Hx Congestive Heart Failure, Hx Coronary Artery Disease, Hx Hypercholesterolemia, Hx Hypotension, Hx Hypertension, Hx Myocardial Infarction , Hx Pacemaker/ICD, Other Cardiovascular Problems/Disorders - ischemic cardiomyopathy Denies: Hx Aneurysm, Hx Angioplasty, Hx Cardiomegaly, Hx Congenital Heart Disease, Hx Deep Vein Thrombosis, Hx Embolism, Hx Peripheral Vascular Disease, Hx Rheumatic Fever, Hx Syncope, Hx Valvular Heart Disease Respiratory History: Reports: Hx Chronic Bronchitis, Hx Chronic Obstructive Pulmonary Disease (COPD), Hx Pneumonia, Hx Pulmonary Edema, Hx Seasonal Allergies, Other Respiratory Problems/Disorders - PNA Denies: Hx Asthma, Hx Cystic Fibrosis, Hx Lung Cancer, Hx Pleural Effusion, Hx Pulmonary Embolism, Hx Sleep Apnea GI History: Reports: Hx Gall Bladder Disease - cholecystectomy, Hx Gastroesophageal Reflux Disease, Hx Hiatal Hernia - repair x2, Other GI Disorders - inability to digest food Denies: Hx Cirrhosis, Hx Crohn's Disease, Hx Diverticulosis, Hx Gastrointestinal Bleed, Hx Irritable Bowel, Hx Jaundice, Hx Obstructive Bowel, Hx Ileostomy, Hx Pyloric Stenosis, Hx Ulcer History: Reports: Hx Benign Prostatic Hyperplasia, Other Problems/ Disorders - prostate surgery Denies: Hx Acute Renal Failure, Hx Chronic Renal Failure, Hx Dialysis, Hx Kidney Infection, Hx Kidney Stones, Hx Renal Disease Musculoskeletal History: Reports: Hx Arthritis, Hx Back Problems - herniated disk, Hx Congenital Bone Abnormalities - upper back, Hx Orthopedic Injury - left knee replaced, Other Musculoskeletal History - Total Knee Replacement Left, Denies: Hx Rheumatoid Arthritis, Hx Bursitis, Hx Fibromyalgia, Hx Gout, Hx Osteoporosis, Hx Scoliosis, Hx Tendonitis Sensory History: Denies: Hx Cataracts, Hx Contacts or Glasses, Hx Eye Injury, Hx Eye Prosthesis, Hx Glaucoma, Hx Legally Blind, Hx Macular Degeneration, Hx Vision Problem, Hx Deafness, Hx Hearing Aid, Hx Hearing Problem, Other Sensory Impairments Opthamlomology History: Denies: Hx Cataracts, Hx Contacts or Glasses, Hx Eye Injury, Hx Eye Prosthesis, Hx Glaucoma, Hx Legally Blind, Hx Macular Degeneration, Hx Vision Problem, Other Sensory Impairments Neurological History: Reports: Other Neuro Impairments/Disorders - laminectomy Denies: Hx Dementia, Hx Developmental Delay, Hx Headaches, Hx Migraine, Hx Nerve Disease, Hx Seizures, Hx Spinal Cord Injury, Hx Transient Ischemic Attacks (TIA) Psychiatric History: Denies: Hx Anxiety, Hx Attention Deficit Hyperactivity Disorder, Hx Eating Disorder, Hx Depression, Hx Panic Disorder, Hx Post Traumatic Stress Disorder, Hx Inpatient Treatment, Hx Community Mental Health Tx, Hx Schizophrenia, Hx Bipolar Disorder, Hx Suicide Attempt, Hx Substance Abuse, Other Psychiatric Issues/Disorders - Cancer History Cancer Type, Location and Year: 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 cholecystectomy 1994, hiatal hernia , CABG, Back Sx, Prostate Sx, Stents, Cardiac cath with bypass Hx Anesthesia Reactions: No - Immunization History Date of Tetanus Vaccine: UTD Date of Influenza Vaccine: UTD Infectious Disease History: No Infectious Disease History: Denies: Hx Clostridium Difficile, Hx Hepatitis, Hx Human Immunodeficiency Virus (HIV), Hx of Known/Suspected MRSA, Hx Shingles, Hx Tuberculosis, Hx Known/ Suspected VRE, Traveled Outside the [place] in Last 30 Days - Family History Known Family History: Positive: Cardiac Disease - In both brothers - Social History Alcohol Use: None Hx Substance Use: No Substance Use Type: Reports: None Hx Tobacco Use: No Smoking Status (MU): Never Smoked Tobacco Do You Chew or Dip Tobacco: No Have You Chewed or Dipped Tobacco in the LAST YEAR: No Have You Smoked in the Last Year: No Review of Systems Positive: Chest Pain - left side Positive: Shortness Of Breath Positive: Nausea. Negative: Vomiting Neurological: Other - dizziness Positive: Syncope - patient notes feeling like passing out All Other Systems Reviewed And Are Negative: Yes Physical Exam - Summary Physical Exam Summary: VITAL SIGNS: Reviewed. GENERAL: Patient is a well-developed and nourished MALE who is lying comfortable in the stretcher. Patient is not in any acute respiratory distress. HEAD AND FACE: No signs of trauma. No ecchymosis, hematomas or skull depressions. No sinus tenderness. EYES: PERRLA, EOMI x 2, No injected conjunctiva, no nystagmus. EARS: Hearing grossly intact. Ear canals and tympanic membranes are within normal limits. MOUTH: Oropharynx within normal limits. NECK: Supple, trachea is midline, no adenopathy, no JVD, no carotid bruit, no c- spine tenderness, neck with full ROM. CHEST: Reproducible chest pain, symmetric. LUNGS: Clear to auscultation bilaterally. No wheezing or crackles. CVS: Regular rate and rhythm, S1 and S2 present, no murmurs or gallops appreciated. ABDOMEN: Soft, non-tender. No signs of distention. No rebound no guarding, and no masses palpated. Bowel sounds are normal. EXTREMITIES: FROM in all major joints, no edema, no cyanosis or clubbing. NEURO: Alert and oriented x 3. No acute neurological deficits. Speech is normal and follows commands. SKIN: Dry and warm. Triage Information Reviewed: Yes Vital Signs On Initial Exam: Initial Vitals Temp Pulse Resp BP Pulse Ox 98 F 60 16 125/58 96 09/20/18 17:36 09/20/18 17:36 09/20/18 17:36 09/20/18 17:36 09/20/18 17:36 Vital Signs Reviewed: Yes Diagnostics - Vital Signs Vital Signs Temp Pulse Resp BP Pulse Ox 09/20/18 17:36 98 F 60 16 125/58 96 - Laboratory Result Diagrams: 09/21/18 06:51 09/21/18 06:52 Lab Statement: Any lab studies that have been ordered have been reviewed, and results considered in the medical decision making process. - Radiology CXR Radiology Interpretation Completed By: ED Physician Summary of Radiographic Findings: NO ACUTE PATHOLOGY. These findings were reviewed by Dr. Mayorga. - EKG 1755 Cardiac Rate: NL - 60 BPM Summary of EKG Findings: 1755 - pacemaker rhythm, 60 BPM Chest Pain Course/Dx - Course Assessment/Plan: This patient is a 87 year old M presenting to [facility] via ambulance with a chief complaint of CP since a few hours ago. The patient rates the pain 4/10 in severity. Symptoms aggravated by deep breathing. Symptoms alleviated by rest. The CP is on the left side and the patient currently describes it as dull. The CP is non-radiating. He has hx of CAD, CHF, pacemaker , cardiac arrest, HLD, [place]. Patient reports worsening nausea, SOB, dizziness, and possible syncopal episode. Patient denies vomiting. He does not remember his last stress test. Past medical history significant for CHF, CAD, paroxysmal atrial fibrillation and pain, ischemic cardiomyopathy, elevated troponins, GERD , dyslipidemia, gastroparesis and pneumonia. In the ED course the patient was placed in a engine monitor, IV access obtained, labs and a chest x-ray was ordered. The patient is stable. The patient will be signed out to Dr. Miller at shift change. - Diagnoses Provider Diagnoses: Chest pain Discharge - Sign-Out/Discharge Documenting (check all that apply): Sign-Out Patient Signing out patient TO: Prema Miller - Patient is a sign-out to Dr. Miller at shift change pending repeat troponin and disposition. Patient Received Moderate/Deep Sedation with Procedure: No - Discharge Plan Condition: Stable Disposition: ADMITTED TO [facility] - Billing Disposition and Condition Condition: STABLE Disposition: Admitted to [facility] - Attestation Statements Document Initiated by Scribe: Yes Documenting Scribe: Jerome Galindo Provider For Whom Scribe is Documenting (Include Credential): Dr. Amari Mayorga MD Scribe Attestation: Jerome Christian, scribed for Dr. Amari Mayorga MD on 09/23/18 at 0734. Scribe Documentation Reviewed: Yes Provider Attestation: The documentation as recorded by the Jerome tejada accurately reflects the service I personally performed and the decisions made by me, Dr. Amari Mayorga MD Status of Scribe Document: Viewed
[2018-09-20 18:37] LABS: Urine Appearance Clear; Urine Bacteria Absent (Absent); Urine Bilirubin Negative (Negative); Urine Blood 1+ (Negative); Urine Color Straw; Urine Glucose Negative (Negative); Urine Ketones Negative (Negative); Urine Nitrite Negative (Negative); Urine Protein Negative (Negative); Urine Red Blood Cell Trace(0-2/hpf) (Absent); Urine Specific Gravity 1.006 (1.010-1.030); Urine Urobilinogen Negative (Negative); Urine White Blood Cell Absent (Absent)
[2018-09-20 18:44] LABS: ABS Basophils 0.1 10^3/ul (0-0.2); ABS Eosinophils 0.1 10^3/ul (0-0.6); ABS Lymphocytes 2.1 10^3/ul (1.0-4.8); ABS Monocytes 0.7 10^3/ul (0-0.8); ABS Neutrophils 5.9 10^3/ul (1.5-7.7); Eosinophil % 1.3 %; Hematocrit 36 % (42-52); Hemoglobin 12.1 g/dL (14.0-18.0); Lymphocyte % 23.3 %; Mean Corpuscular HGB Conc 34 g/dL (31-36); Mean Corpuscular Hemoglobin 33 pg (27-31); Mean Corpuscular Volume 97 fL (80-94); Mean Platelet Volume 7.7 fL (7.4-10.4); Platelet Count 227 10^3/uL (150-450); Red Blood Count 3.67 10^6 /uL (4.18-5.48); Red Cell Distribution Width 14 % (10-15); White Blood Count 8.9 10^3/uL (3.5-10.8)
[2018-09-20 18:53] LABS: Activated Partial Thrombo Time 43.4 seconds (26.0-38.0); INR 2.01 (0.82-1.09)
[2018-09-20 19:02] LABS: Albumin 3.7 g/dL (3.2-5.2); Albumin/Globulin Ratio 1.5 (1-3); BUN/Creatinine Ratio 16.8 (8-20); Calcium 8.8 mg/dL (8.6-10.3); EGFR African American 74.6 (>60); EGFR Non-African American 61.7 (>60); Globulin 2.5 g/dL (2-4); Potassium 4.2 mmol/L (3.5-5.0); Total Bilirubin 0.5 mg/dL (0.2-1.0); Total Protein 6.2 g/dL (6.4-8.9)
[2018-09-20 19:05] LABS: CKMB ng/mL 1.3 ng/mL (0.6-6.3)
--- NOTE | 2018-09-20 19:06 | ED ---
Progress - Progress Note Progress Note: This patient was signed out from Dr. Mayorga to Dr. Miller upon shift change at 19: 00 09/20/18 pending lab results. Bloodwork, chemistries, and urines obtained. Urine Blood 1+. Case discussed with Dr. Guajardo, hospitalist, who accepted the patient for admission. The patient is agreeable with this plan. Course/Dx - Course Course Of Treatment: This patient was signed out from Dr. Mayorga to Dr. Miller upon shift change at 19:00 09/20/18 pending lab results. Bloodwork, chemistries , and urines obtained. Urine Blood 1+. Case discussed with Dr. Guajardo, hospitalist, who accepted the patient for admission. The patient is agreeable with this plan. - Diagnoses Provider Diagnoses: Chest pain - Provider Notifications Discussed Care Of Patient With: Daphnie Guajardo Time Discussed With Above Provider: 19:21 Instructed by Provider To: Admit As Inpatient Discharge - Sign-Out/Discharge Documenting (check all that apply): Patient Departure - admit, Receiving Sign- Out Receiving patient FROM: Amari Mayorga Patient Received Moderate/Deep Sedation with Procedure: No - Discharge Plan Condition: Fair Disposition: ADMITTED TO [facility] - Billing Disposition and Condition Condition: FAIR Disposition: Admitted to [facility] - Attestation Statements Document Initiated by Alysia: Yes Documenting Scribe: Toy Rueda Provider For Whom Alysia is Documenting (Include Credential): Prema Miller MD Scribkatt Attestation: Toy Christian, scribed for Prema Miller MD on 09/21/18 at 0636. Scribe Documentation Reviewed: Yes Provider Attestation: The documentation as recorded by the Toy tejada accurately reflects the service I personally performed and the decisions made by me, Prema Miller MD Status of Scribe Document: Viewed
[2018-09-20 19:34] LABS: TSH (Thyroid Stimulating Horm) 3.02 mcIU/mL (0.34-5.60)
[2018-09-20] MEDS ORDERED: Acetaminophen TAB* 325 MG PO PRN (20:05)
[2018-09-20] MEDS ORDERED: Fluticasone NASAL SPRAY 50MCG* 16 gm SPRAY BTL BOTH NARES PRN (20:07)
[2018-09-20] MEDS ORDERED: Codeine TAB* 15 MG PO PRN (20:07)
[2018-09-20] MEDS ORDERED: Albuterol HFA INHALER* 8 gm MDI INH PRN (20:07)
[2018-09-20] MEDS ORDERED: Metoclopramide TAB* 10 MG PO PRN (20:07)
[2018-09-20] MEDS ORDERED: Nitroglycerin TAB 0.4 MG* 0.4 MG TAB SL PRN (20:07)
[2018-09-20] MEDS ORDERED: Nitroglycerin 0.1 mg/Hr PATCH* (2.5 MG) TRANSDERM PRN (20:07)
[2018-09-20] MEDS ORDERED: CMCS: Rosuvastatin (NF) 10 MG TAB PO SCH (21:00)
[2018-09-20] MEDS: Carvedilol TAB* 6.25 MG PO SCH (21:51)
[2018-09-20] MEDS ORDERED: Warfarin TAB(*) 5 MG PO ONE (22:00)
[2018-09-20] MEDS ORDERED: Warfarin TAB(*) 5 MG PO SCH (22:00)
--- NOTE | 2018-09-20 22:41 | HP ---
CC: Dr. Oglesby * HISTORY AND PHYSICAL: DATE OF ADMISSION: 09/20/18 PRIMARY CARE PROVIDER: Dr. Oglesby. OUTPATIENT JOINERY FACTORY WORKER: Dr. Guevara. ATTENDING PHYSICIAN: Dr. Hudson * (dictated by Halley Rich NP). CHIEF COMPLAINT: Chest pain. HISTORY OF PRESENT ILLNESS/HOSPITAL COURSE: Mr. Rodriguez is an 87-year-old male with a past medical history significant for ischemic cardiomyopathy, sick sinus syndrome, atrial fibrillation, gastroparesis, left bundle-branch block, NJ , status post stents and CABG, CHF, hypertension, hyperlipidemia, macular degeneration, fall risk; who presented to the emergency department today with complaints of chest pain, nausea, shortness of breath, dizziness, near syncope. 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 He reports shortly thereafter around 1630, he started having chest pain with accompanying shortness of breath and dizziness. He reports he attempted to stand up and felt like he was going to pass out, therefore sat back down. Then, his son called 911. The patient reports the pain was 4/10 and was present until he was given nitro in the emergency department. Now, pain is 0/10. The patient reports the pain was in the left side of the chest. The patient reports the pain was dull and did not radiate. The patient currently denies chest pain, nausea, shortness of breath, palpitations, dizziness, nausea, vomiting. The patient denies any recent sick contact, illness or travel. While in the emergency department, the patient has had a chest x-ray, which revealed no acute pathology. The patient had an EKG, which revealed a paced rhythm at 60. The patient has had routine labs, which revealed a macrocytic anemia, an elevated BNP at 151. Given the patient's history and presenting symptoms, hospitalist were asked to consult for admission. PAST MEDICAL HISTORY: 1. Ischemic cardiomyopathy. 2. Sick sinus rhythm, status post pacer. 3. Atrial fibrillation. 4. Gastroparesis. 5. Left bundle-branch block. 6. NJ, stents, CABG. 7. Dysphagia. 8. Hypertension. 9. Dyslipidemia. 10. Macular degeneration. 11. Fall risk. PAST SURGICAL HISTORY: 1. The patient had a pacemaker placed. 2. CABG. 3. PCI. 4. Left total knee replacement. 5. Hiatal hernia repair. 6. Tonsillectomy. 7. Cholecystectomy. 8. Back surgery. 9. Jejunectomy. HOME MEDICATIONS: 1. Coumadin 5 mg p.o. daily. 2. Crestor 10 mg p.o. daily. 3. Inspra 12.5 mg p.o. daily. 4. Vitamin B12 injections of 1000 mcg IM monthly. 5. Codeine 15 mg p.o. q.6 hours p.r.n., MDD 4. 6. Coreg 6.25 mg p.o. b.i.d. 7. Aspirin 81 mg p.o. daily. 8. Amiodarone 100 mg p.o. Tuesday and Tuesday. 9. Albuterol 2 puffs inhalation q.6 hours p.r.n. 10. Protonix 40 mg p.o. daily. 11. Nitroglycerin 0.4 mg sublingual q.5 minutes p.r.n. 12. Nitro patch transdermal daily p.r.n. per family. 13. Reglan 10 mg p.o. t.i.d. p.r.n. 14. Iron polysaccharide complex 150 mg p.o. daily. 15. Flonase 2 sprays both nares daily. 16. Ferrous sulfate 325 mg p.o. daily. ALLERGIES: CODEINE, ERYTHROMYCIN, REGLAN. FAMILY HISTORY: His mother had PE. His father had a history of COPD and CHF. SOCIAL HISTORY: The patient is independent in his ALDs. The patient does not smoke. The patient does not drink. The patient's surrogate decision maker is his , Yarelis. REVIEW OF SYSTEMS: A 14-point review of systems was performed and all pertinent positive and negative findings are in the HPI. All others are negative. PHYSICAL EXAMINATION GENERAL: Mr. Rodriguez is an 87-year-old male, who is lying in bed. Appears to be in no acute distress. Appears stated age. VITAL SIGNS: Temp 98, HR 60, RR 16, O2 saturation 96% on room air, BP 125/58. HEENT: EOMs intact. PERRLA. Oral mucosa is moist without lesion. Posterior pharynx is clear. NECK: Full range of motion. No lymphadenopathy. RESPIRATORY: Symmetrical chest expansion. No accessory muscle use. Lungs are clear to auscultation. No rhonchi, wheezes or rubs. CV: Regular rate and rhythm. S1, S2 present. No murmurs, rubs or gallops. No JVD. EXTREMITIES: Skin is warm and smooth bilaterally. No edema. No clubbing or cyanosis. Pedal pulses are 2+ bilaterally. MUSCULOSKELETAL: No pain or deformities. ABDOMEN: Soft and nontender to palpation. Bowel sounds are normoactive. NEUROLOGIC: Awake, alert, oriented x4. Motor strength is 5/5 in the upper and lower extremities. SKIN: Grossly intact. DIAGNOSTIC STUDIES/LAB DATA: WBC 8.9, hemoglobin 12.1, hematocrit 36, MCV 97, MCH 33, INR 2.01. Sodium 135, potassium 4.2, chloride 106, carbon dioxide 21, BUN 19, creatinine 1.13, glucose 113, lactic acid 1.0, magnesium 2.0, BNP 151. TSH is pending. ASSESSMENT AND PLAN: Mr. Rodriguez is an 87-year-old male with a past medical history significant for ischemic cardiomyopathy, sick sinus syndrome, atrial fibrillation, gastroparesis, left bundle-branch block, myocardial infarction status post stents and coronary artery bypass graft, congestive heart failure, hypertension, hyperlipidemia, fall risk; who presented to the emergency department today with complaints of chest pain. Given the patient's significant cardiac history and presenting symptoms, he will be admitted OBV for further evaluation. 1. Chest pain: The patient is currently chest pain free, but his story is concerning given his history. We will repeat troponins x3. He will be admitted to telemetry. I have ordered an echocardiogram. I have ordered a nuclear stress test. It should be mentioned that the patient sees Dr. Guevara and there was some discussion of cardiac catheterization to evaluate the patient 's stents. We should consider a calker's evaluation in the morning if needed. 2. Ischemic cardiomyopathy: The patient has a pacemaker. The patient will be placed on tele. The patient will have daily weights and strict I's and O's. We will continue the patient's home medications including his nitro, Inspra, Coreg, aspirin, amiodarone. 3. Sick sinus syndrome: The patient has a pacemaker. The patient will be placed on tele. We will continue the patient's home medications as mentioned above. 4. Atrial fibrillation: The patient will be placed on tele. The patient is currently in a paced rhythm. We will continue the patient's Coumadin and cardiac medications. 5. Gastroparesis: The patient reports he is unable to eat without p.r.n. Reglan even though this was listed as an allergy. P.r.n. Reglan has been ordered in the same dose of his home dose. 6. History of myocardial infarction with stents and coronary artery bypass graft: We will continue the patient's home medications as same with no change. We will order a stress test. We will consider a cardiology consult. 7. Congestive heart failure: As mentioned above under ischemic cardiomyopathy , we will do strict I's and O's, daily weights, telemetry, and continue the patient's home medications with no change. 8. Hypertension: The patient is currently normotensive. I will continue his home medications the same. 9. Hyperlipidemia: The patient is on Crestor. I have ordered fasting lipids for the morning. I have also ordered hemoglobin A1c. 10. Macular degeneration: Supportive care. 11. FEN: The patient will be provided with a low-sodium diet. The patient will be n.p.o. after midnight for stress test in the morning. 12. Code status: The patient is a DNR. 13. DVT prophylaxis: Based on DVT Risk Assessment, the patient is at high risk. I will continue the patient's Coumadin. TIME SPENT: Approximately 65 minutes was spent on this admission, greater than half of that time was spent with the patient and obtaining my history, performing physical exam and reviewing my plan of care. This case has been reviewed with my attending, Dr. Hudson, who is in agreement with my plan of care. HALLEY RICH, NICK [id number]/CPS #: [id number] BARNEY
[2018-09-21 07:56] LABS: ABS Basophils 0.1 10^3/ul (0-0.2); ABS Eosinophils 0.1 10^3/ul (0-0.6); ABS Lymphocytes 2.1 10^3/ul (1.0-4.8); ABS Monocytes 0.6 10^3/ul (0-0.8); ABS Neutrophils 2.8 10^3/ul (1.5-7.7); Eosinophil % 1.8 %; Hematocrit 36 % (42-52); Hemoglobin 12.6 g/dL (14.0-18.0); Lymphocyte % 36.6 %; Mean Corpuscular HGB Conc 35 g/dL (31-36); Mean Corpuscular Hemoglobin 34 pg (27-31); Mean Corpuscular Volume 96 fL (80-94); Nucleated Red Blood Cells % 0.1; Platelet Count 223 10^3/uL (150-450); Red Blood Count 3.75 10^6 /uL (4.18-5.48); Red Cell Distribution Width 14 % (10-15); White Blood Count 5.7 10^3/uL (3.5-10.8)
[2018-09-21 07:59] LABS: INR 2.07 (0.82-1.09)
[2018-09-21 08:09] LABS: BUN/Creatinine Ratio 15.6 (8-20); Calcium 9.1 mg/dL (8.6-10.3); EGFR African American 77.8 (>60); EGFR Non-African American 64.3 (>60); HDL Cholesterol 42.7 mg/dL; Potassium 3.9 mmol/L (3.5-5.0)
[2018-09-21] MEDS ORDERED: IRON POLYSACCHARIDE COMPLEX 150 MG PO SCH (09:00)
[2018-09-21] MEDS ORDERED: Pantoprazole TAB * 40 MG TAB PO SCH (09:00)
[2018-09-21] MEDS ORDERED: Nitroglycerin 0.1 mg/Hr PATCH* (2.5 MG) TRANSDERM SCH (09:00)
[2018-09-21] MEDS ORDERED: CMCS: Epleronone (NF) 25 MG TAB PO SCH (09:00)
[2018-09-21] MEDS ORDERED: Aspirin EC TAB* 81 MG TAB.EC PO SCH (09:00)
[2018-09-21] MEDS ORDERED: Ferrous Sulfate TAB* 325 MG PO SCH (09:00)
[2018-09-21] MEDS ORDERED: Regadenoson* 0.4 MG/5 ML SYRINGE ONE (10:38)
--- NOTE | 2018-09-21 11:31 | ECHO ---
*[facility]* [place] [address] Fax #: [phone] Patient: Jennifer, Height: 63 in / Phuc Ng 160 cm : 1930 Weight: 154.7 lb / Study Date: 09/21/2018 70.3 kg Age: 87 BP: 130 / 45 Gender: M BMI/BSA: 27.5 HR: 60 bpm kg/m^2 / 1.74 m^2 *Volcanology Professor: * Verna Guevara [facility] *Referring Physician: * Cassie Maddox *Reading Physician: * Srini Burr MD Indications: Chest Pain, unspecified. History: Coronary artery disease. Congestive heart failure. Risk factors: Hypertension. Hyperlipidemia. Labs, prior tests, procedures, and surgery: Catheterization. There was a stenosis which was treated with a stent. Permanent pacemaker system implantation. Coronary artery bypass grafting. Conclusions Summary: 1. Left ventricle: The cavity size is normal. There is mild concentric hypertrophy. Systolic function is mildly reduced. The estimated ejection fraction is 45-50%. 2. Right ventricle: The cavity size is normal. Pacer wire noted in the right ventricle. Systolic function is normal. Systolic pressure is within the normal range. 3. Left atrium: The atrium is moderately dilated. 4. Mitral valve: There is mild regurgitation. 5. Aortic valve: There is mild to moderate regurgitation. Recommendations: Compared to prior study from 03/2018, findings are similar - the anteroapical and apical segments appear with normal function on this study but may be off-axis views (previously noted to be hypokinetic) Study data: Procedure: Transthoracic echocardiography was performed. Image quality was fair. Complete 2D, spectral Doppler, and color flow Doppler. Location: Bedside. Patient status: Inpatient. Patient room number: 448-1. Rhythm: Paced rhythm. Findings Left ventricle: The cavity size is normal. There is mild concentric hypertrophy. Systolic function is mildly reduced. The estimated ejection fraction is 45-50%. Regional wall motion abnormalities: Hypokinesis of the basal-midinferolateral myocardium. Hypokinesis of the apicalanteroseptal myocardium. Akinesis of the mid inferior and mid inferolateral myocardium; moderate hypokinesis of the basal inferior and basal inferolateral myocardium; mild hypokinesis of the apical lateral myocardium. Doppler parameters are consistent with abnormal left ventricular relaxation (grade 1 diastolic dysfunction). Right ventricle: The cavity size is normal. Pacer wire noted in the right ventricle. Systolic function is normal. Systolic pressure is within the normal range. Left atrium: The atrium is moderately dilated. Right atrium: The atrium is mildly dilated. Pacer wire noted in right atrium. Mitral valve: The leaflets are mildly thickened. There is no evidence of stenosis. There is mild regurgitation. Aortic valve: The valve is trileaflet. The leaflets are moderately thickened. There is no evidence of stenosis. There is mild to moderate regurgitation. Tricuspid valve: The leaflets are normal thickness. There is no evidence of stenosis. There is mild regurgitation. Pulmonic valve: The leaflets are normal thickness. There is no evidence of stenosis. There is mild regurgitation. Aorta: Ascending aorta: The ascending aorta is appears normal. Aortic arch: The aortic arch is appears normal. The aortic root is not dilated. Pericardium: There is no significant pericardial effusion. Pulmonary arteries: The main pulmonary artery is normal-sized. Systolic pressure cannot be accurately determined, but appears to be increased. Systemic veins: Not well visualized. Inferior vena cava: Not well visualized. Measurements Left ventricle Value Ref Aortic valve Value Ref MADY, LAX 5.3 cm 4.2 - 5.8 Curt diam, ED 1.9 cm ----- ESD, LAX (H) 4.4 cm 2.5 - 4.0 Peak v, S 1.54 m/sec ----- FS, LAX (L) 16 % 25 - 43 VTI, S 41.7 cm ----- PW, ED, LAX (H) 1.1 cm 0.6 - 1.0 Mean grad, S 5.0 mm Hg ----- FS (L) 16 % 25 - 43 Peak grad, S 9.0 mm Hg ----- PW, ED (H) 1.1 cm 0.6 - 1.0 LVOT/AV, VTI ratio 0.5 ----- E', lat curt, TDI (L) 3.9 cm/sec >=10.0 JENNIE, VTI 1.58 cm^2 --- -- E/e', lat curt, 17 JENNIE, Vmax 1.64 cm^2 ----- TDI AR peak v 3.3 m/sec ----- E', med curt, TDI (L) 4.6 cm/sec >=7.0 AR PHT 524 ms --- -- E/e', med curt, 14 AR peak grad 44 mm Hg ----- TDI E', avg, TDI 4.3 cm/sec Mitral valve Value Ref E/e', avg, TDI (H) 15 <=14 Peak E 0.65 m/sec --- -- Peak A 0.99 m/sec ----- LVOT Value Ref Decel time 306 ms ----- Diam, S 2.00 cm Peak E/A ratio 0.7 ----- Area 3.1 cm^2 Peak anali, S 0.81 m/sec Pulmonic valve Value Ref VTI, S 21.0 cm Peak v, S 0.78 m/sec ----- Mean grad, S 1 mm Hg Peak grad, S 2.0 mm Hg ----- SV 61 ml DC v, ED 1.03 m/sec ----- SV/bsa 35 ml/m^2 Tricuspid valve Value Ref Ventricular septum Value Ref TR peak v 2.3 m/sec <=2.8 IVS, ED (H) 1.2 cm 0.6 - 1.0 Peak RV-RA grad, S 21 mm Hg ----- Right ventricle Value Ref Aortic root Value Ref MADY, LAX 4.2 cm Root diam 3.2 cm <3.9 MADY minor ax, A4C (H) 5.0 cm 1.9 - 3.5 mid Ascending aorta Value Ref AAo AP diam, S 3.3 cm ----- Left atrium Value Ref AP dim, ES (H) 4.10 cm 3.00 - Aortic arch Value Ref 4.00 Arch diam 2.5 cm ----- ML dim, A4C 3.9 cm SI dim, A4C 6.1 cm Decending aorta Value Ref Vol/bsa, ES, 1-p (H) 45 ml/m^2 12 - 37 Thomas peak anali 0.62 m/sec ----- A4C Vol/bsa, ES, A/L (H) 55 ml/m^2 16 - 34 Right atrium Value Ref SI dim, ES 5.3 cm 3.4 - 5.3 ML dim, ES, A4C (H) 5.0 cm 2.6 - 4.4 SI dim, ES, A4C 5.1 cm 3.4 - 5.3 Estimated RAP 29 mm Hg Legend: (L) and (H) janet values outside specified reference range. Prepared and electronically signed by Srini Burr MD 09/21/2018 11:31
[2018-09-21 12:45] VITALS: BP 143/64
[2018-09-21] MEDS: Carvedilol TAB* 6.25 MG PO SCH (13:14)
--- NOTE | 2018-09-21 15:36 | CONSULT ---
Subjective Date of Service: 09/21/18 Interval History: Admission Date: 09/20/18 Date of consult 09/21/2018 Service: Hospitalist PMD: Dr. Oglesby * Event Executive: Dr. Guevara CC: Nausea, lightheadedness, left lower chest and/or left upper quandrant pain Reason for consult: Same HISTORY OF PRESENT ILLNESS/HOSPITAL COURSE: Mr. Rodriguez is an 87-year-old man with a past medical history as below. He was at home yesterday when his of nearly 50 years was at work. She was talking to him and he sounded dyspneic. He had been complaining of nausea, lightheadedness and left lower chest and/or left upper quadrant pain. He felt like he might pass out. He tells me at some point in the past zantac was changed to protonix and this helped his GI symptoms. He is also dependent on reglan. He states his symptoms lasted for about 2 hours, he relates relief with SL NTG. He ruled out for ACS with serial troponins. Rhythm is paced. EKG is unchanged from prior. Vasodilator stress MPI was reviewed. The stress images were reduced in quality due to delayed upper bowel tracer uptake. Prone imaging was not acquired. In comparison directly to images from 03/2015, there is a new defect on stress imaging in the basal anterior and basal anterolateral segments. Patient is entirely asymptomatic at this time. PAST MEDICAL HISTORY: 1. [place], CAD, CABG, PCI, Ischemic cardiomyopathy. 2. 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 3. Atrial fibrillation. 4. Gastroparesis. 5. Left bundle-branch block. 6 Drug-induced tardive dystonia 7. Mixed hyperlipidemia 8 Legal blindness U surgical hx: Peptic Ulcer Disease - abdominal surgery for ulcer disease approx 1979 [facility] to LAD, SVG to OM Hernia Repair - (1994) Dr Abel diaz, Back Surgery - (1965) lumbar laminectomy Knee Surgery - right, arthroscopic LEFT arthroscopy 2009 LEFT TKR 05/2012 Transurethral Resection Of Prostate (TURP) Cholecystectomy - (1996) Francois causeyensie Allergies: Lipitor, erythromycin FH: Father: due to CHF. Mother: Pulmonary Embolism (Pe). due to Pulmonary Embolism (PE). Siblings:5, 6 - 2 now. Brother 1: due to Emphysema. Brother 2: due to IN - (age 53 Years). Brother 3: due to DVT/Pe. Sister 1: due to Leukemia. SH: Marital: .Lives With: Spouse.Occupation: [employer], retired 2007.2 sons Personal Habits: Smoking: Patient has never smoked.Cigarette Use: Never Smoked Cigarettes.Alcohol: Denies alcohol use.Drug Use: Denies Drug Use.Daily Caffeine : Comsumes on average 1 cup of decaff coffee per day.Exercise Type: Does not exercise. Medications Active Medications: Acetaminophen (Tylenol Tab*) 650 mg PO Q4H PRN PRN Reason: FEVER/PAIN Albuterol (Ventolin Hfa Inhaler*) 2 puff INH Q6H PRN PRN Reason: COUGH Amiodarone HCl (Cordarone Tab*) 100 mg PO MoFr@0900 [facility] Aspirin (Aspirin Ec Tab*) 81 mg PO DAILY [facility] Last Admin: 09/21/18 13:15 Dose: 81 mg Carvedilol (Coreg Tab*) 6.25 mg PO BID [facility] Last Admin: 09/21/18 13:14 Dose: 6.25 mg Codeine Sulfate (Codeine Tab*) 15 mg PO Q6H PRN PRN Reason: COUGH Eplerenone (Inspra (Nf)) 12.5 mg PO DAILY [facility]; Protocol Last Admin: 09/21/18 13:16 Dose: 12.5 mg Ferrous Sulfate (Ferrous Sulfate Tab*) 325 mg PO DAILY [facility] Last Admin: 09/21/18 13:28 Dose: 325 mg Fluticasone Propionate (Flonase Nasal [place] 50mcg*) 2 spray BOTH NARES DAILY PRN PRN Reason: CONGESTION Last Admin: 09/21/18 13:17 Dose: 2 spray Metoclopramide HCl (Reglan Tab*) 10 mg PO TID PRN PRN Reason: NAUSEA/VOMITING Last Admin: 09/20/18 21:51 Dose: 10 mg Nitroglycerin (Nitroglycerin Tab 0.4 Mg*) 0.4 mg SL Q5M PRN PRN Reason: PAIN - CHEST Nitroglycerin (Nitroglycerin 2.5 Mg Patch*) 1 patch TRANSDERM DAILY [facility] Last Admin: 09/21/18 13:16 Dose: 1 patch Pantoprazole Sodium (Protonix Tab*) 40 mg PO DAILY [facility] Last Admin: 09/21/18 13:28 Dose: 40 mg Pharmacy Profile Note (Coumadin Per Pharmacy*) 1 note FOLLOW UP .PER PHARMACY PROTOC NICO; Protocol Rosuvastatin Calcium (Crestor (Nf)) 10 mg PO BEDTIME [facility]ICO; Protocol Last Admin: 09/20/18 21:53 Dose: 10 mg Warfarin Sodium (Coumadin Tab(*)) 5 mg PO ONCE@1700 ONE Stop: 09/21/18 17:01 Home Medications: Rosuvastatin (NF) [Crestor (NF)] 10 mg PO BEDTIME 12/21/13 [History Confirmed ] Epleronone (NF) [Inspra (NF)] 12.5 mg PO DAILY 05/29/14 [History Confirmed 09/20] Amiodarone TAB* [Cordarone Tab*] 100 mg PO MOFR 09/18/14 [History Confirmed ] Aspirin EC TAB* [Ecotrin EC Low Dose 81 MG*] 81 mg PO DAILY 09/18/14 [History Confirmed 09/20/18] Metoclopramide TAB* [Reglan TAB*] 10 mg PO TID PRN 03/21/17 [History Confirmed 09/20/18] Cyanocobalamin INJ * [Vitamin B12 INJ *] 1,000 mcg IM MONTHLY 06/09/17 [History Confirmed 09/20/18] Carvedilol TAB* [Coreg TAB*] 6.25 mg PO BID 03/13/18 [History Confirmed 09/20/18 ] Ferrous Sulfate TAB* 325 mg PO DAILY 03/13/18 [History Confirmed 09/20/18] Fluticasone NASAL SPRAY 50MCG* [Flonase NASAL SPRAY 50MCG*] 2 spray BOTH NARES DAILY PRN 03/13/18 [History Confirmed 09/20/18] Iron Polysaccharide Complex [Ferrex 150] 150 mg PO DAILY 03/13/18 [History Confirmed 09/20/18] Nitroglycerin 0.1 mg/Hr PATCH* [Nitroglycerin 2.5 MG PATCH*] 1 patch TRANSDERM DAILY 03/13/18 [History Confirmed 09/20/18] Nitroglycerin TAB 0.4 MG* 0.4 mg SL Q5M PRN 03/13/18 [History Confirmed 09/20/18 ] Pantoprazole TAB * [Protonix TAB (NF)] 40 mg PO DAILY 03/13/18 [History Confirmed 09/20/18] Albuterol HFA INHALER* [Ventolin HFA Inhaler*] 2 puff INH Q6H PRN #1 mdi [Rx Confirmed 09/20/18] Codeine TAB* [Codeine Tab*] 15 mg PO Q6H PRN #14 tab MDD 4 04/21/18 [Rx Confirmed 09/20/18] Warfarin TAB(*) [Coumadin TAB(*)] 5 mg PO 1700 09/20/18 [History Confirmed 09/20] Review of Systems - Measurements Intake and Output: Intake and Output Last 24 Hours 09/19/18 09/20/18 09/21/18 09/22/18 06:59 06:59 06:59 06:59 Intake Total 0 240 Output Total 200 700 Balance -200 -460 Weight 164 lb 3 oz Intake: Oral 0 240 Output: Urine 200 700 Other: # Voids 1 - Review of Systems Constitutional Symptoms: Negative: Weight Gain, Weight Loss, Weakness, Fatigue, Fever, Night Sweats Dermatology: Negative: Rash, Skin Lesions HEENT: Negative: Change in Hearing, Vertigo Eyes: Negative: Change in Vision, Double Vision Thyroid: Negative: Cold Intolerance, Heat Intolerance, Primary Hypothyroidism, Primary Hyperthyroidism, Weight Loss, Weight Gain Pulmonary: Positive: Exercise Intolerance Negative: Sputum, Hemoptysis, Asthma, Home Oxygen Cardiology: Positive: Chest Pain, Faintness Negative: Palpitations, Swelling of Ankles, Peripheral Vascular Dis, Edema, Syncope, Claudication, Paroxysmal Nocturnal Dyspnea, Orthopnea Gastroenterology: Positive: Nausea Negative: Blood in Stools, Haematemesis, Melena Genital - Urinary: Negative: Dysuria, Hematuria Musculoskeletal: Negative: Joint Pain, Joint Stiffness Endocrinology: Positive: Obesity Negative: Polydipsia, Polyuria Hematologic/Lymphatic: Positive: Use of Anticoagulant, Use of Antiplatelet Drugs Neurology: Positive: Dizziness Negative: Normal, Hx of Stroke\TIA, Hx Seizures Psychiatry: Negative: Unusual Anxiety, Suicidal Ideation Allergic/Immunologic: Negative: Hx HIV, Immunocompromise Review of Systems Statement: All other review of systems negative, unless stated above. Objective Vital Signs: Temp Pulse Resp BP Pulse Ox 97 F 65 20 143/64 100 09/21/18 12:40 09/21/18 12:40 09/21/18 12:40 09/21/18 12:40 09/21/18 12:40 Oxygen Devices in Use Now: None Appearance: elderly, pleasant, nad Ears/Nose/Mouth/Throat: Clear Oropharnyx, Mucous Membranes Moist Neck: NL Appearance and Movements; NL JVP, Trachea Midline Respiratory: Symmetrical Chest Expansion and Respiratory Effort, - - crackles r base Cardiovascular: - - rrr, 1/6 systolic murmur, prior sternotomu Abdominal: - - soft, obese, nontender Extremities: No Edema Skin: No Rash or Ulcers Neurological: Alert and Oriented x 3 Laboratory Results: 09/21/18 06:51 09/21/18 06:52 INR (Anticoag Therapy) 2.07 (0.82-1.09) H 09/21/18 06:52 APTT 43.4 seconds (26.0-38.0) H 09/20/18 18:32 Total Bilirubin 0.50 mg/dL (0.2-1.0) 09/20/18 18:32 AST 18 U/L (13-39) 09/20/18 18:32 ALT 11 U/L (7-52) 09/20/18 18:32 Alkaline Phosphatase 71 U/L (34-104) 09/20/18 18:32 CK-MB (CK-2) 1.3 ng/mL (0.6-6.3) 09/20/18 18:32 B-Natriuretic Peptide 151 pg/mL (<=100) H 09/20/18 18:32 Total Protein 6.2 g/dL (6.4-8.9) L 09/20/18 18:32 Albumin 3.7 g/dL (3.2-5.2) 09/20/18 18:32 Globulin 2.5 g/dL (2-4) 09/20/18 18:32 Albumin/Globulin Ratio 1.5 (1-3) 09/20/18 18:32 Triglycerides 101 mg/dL 09/21/18 06:52 Cholesterol 123 mg/dL 09/21/18 06:52 LDL Cholesterol 60 mg/dL 09/21/18 06:52 HDL Cholesterol 42.7 mg/dL 09/21/18 06:52 TSH 3.02 mcIU/mL (0.34-5.60) 09/20/18 18:32 09/20/18 09/20/18 09/21/18 18:32 21:51 00:18 Troponin I 0.00 0.01 0.01 Diagnostic Imaging: [place] - [place]03/2011[place] [facility] [place] Chest pain: 20-30% left main disease , widely patent stents in the proximal to mid LAD and in the diagonal branch, mid LAD fills retrograde from the GAINES, right to left collaterals. LAD supplies the bifurcating diagonal branch. The continuation of the LAD after that is occluded. LCX: non dominant, first OM approximately 70-80% lesion, RAMUS : widely patent, no InStent restenosis. RCA: large caliber dominant, mild luminal irregularities. SVG to circumflex is totally occluded, GAINES to LAD widely patent filling retrograde of the mid LAD, anastomosis at the site without any significant occlusion. Cardiac Cath - (07/30/2013) LAD patent stents seen in the proximal to mid segments and a stent in the diagonal branch. Mid LAD fills retrograde from the left mammary, right to left collateral seen of the LAD. The LAD supports a bifurcating diagonal branch. LAD is occluded after that. The left circumflex was good caliber, non dominant. First OM branch was small caliber, ostial 70%, Ramus intermedius widely patent without evidence of InStent restenosis. RCA dominant. Mild diffuse disease up to 30-40% non critical. Saphenous vein graft to the circumflex was totally occluded. GAINES to the LAD was widely patent. Echo - (07/2013) EF was 20-25%, mild AI, minimal aortic stenosis, moderate MR, mild TR, mild pulmonary insufficiency, decrease in EF compared to February 2011 when it was 45-50%, increase in MR from mild to moderate. Echocardiogram - (02/2011) mildly decreased EF of 45-50%, mild inferior basal hypokinesis, mild distal anterior hypokinesis, mild left atrial enlargement, mild AI, mild MR, trace TR, trace PI, similar to 2008 except for interval decrease in MR from moderate then to mild in 2010. Cardiac Cath - (11/2009) 11/11 nuclear: decreased perfusion apical to mid anterior wall and basal lateral wall segments, similar to 04/12, possible merced- infarct ischemia. Cardiac Cath - (06/07/2008) Moderate apical global hypokinesis, 1-2+ MR, EF 40%, LAD with significant disease, widely patent to the stented area to a diagonal branch. Beyond D1, LAD chronically occluded. Apical portion filled from to R to L collaterals, Mid portion fills faintly from the GAINES in a retrograde fashion. LCX non dominant, free of significant disease. Intermediate coronary artery, moderate sized, stented, borderline significant lesion that was up to 70%, RCA was large, dominant, no sig disease, SVG was threadlike and did not supply a coronary artery, GAINES felt to be extremely small with an anastomotic lesion at the LAD. Elevated LVEDP 16. Coronary Artery Disease (CAD) - [place] 1986 Chronic LAD occlusion since 2000 [facility]CA RCA [place] [facility]. negative troponins. 01/09 Cath [facility]: LAD 100%, 50% LM disease, moderate RCA 50%, sig OM1 OM2 disease. EF 45-50% with anterior hypokinesis. 01/11/08 [facility] offpump CABG, GAINES to LAD and SVG to OM. POSTOP d#2. afib rxed with IV amiodarone and digoxin. CATH 04/20/08: Pt developed increased GALEANO at cardiac rehab, postop. 04/09/08 On stres test: Decreased exercise capacity , abnl nuclear; Cath with Dr. Schmidt revealed small atretic SVG with 90% lesion at anastomosis, patent GAINES to LAD. Taxus 2.25 mm Stent placed to 90% Diagonal lesion prior to LAD 80% lesion to revascularize D1, Taxus Stents x2 to large OM1 or ramus of the nondom LCX, RCA has 30% lesion, large dominant vessel. Hospitalizations: UTI - (2008) summer 2008 ureteral stricture? followed by Dr. Peraza Chest Pain - (11/23/2011) ER: irregular heartbeat and chest pain, troponins of .01 and .05, was in sinus rhythm without EKG changes, episodes of paced rhythm at 108 at the upper rate limit with probable pacemaker mediated tachycardia or SVT. reprogrammed and coreg increased. Chest Pain - (08/2010) ruled out. nuclear stress test: decreased profusion, apical to mid anterior wall in inferior lateral segments with some possible merced -infarct ischemia, similar to his previous, consistent with his known anatomy from November 2009 Congestive Heart Failure - (11/2013) [facility] Congestive Heart Failure - (12/2013) Pacer upgrade to biventricular device; declined ICD. KARIME cardioversion to NSR, started on amiodarone. Cardiac Testing: Echocardiogram - (03/30/2018) EF is 40-45%. Grade II diastolic dysfunction. LA mod dilated. Mild AR. Mild MR. Mild TR. Similar to the report of 2015. Similar wall motion abnormalities when compared directly. Echocardiogram - (03/21/2017) moderate LVH, EF 50-55%, abnormal diastolic function, mild left atrial enlargement, trace to mild AI, mild aortic stenosis, trace MR, trace to mild TR , no Study Date: 09/21/2018 Summary: 1. Left ventricle: The cavity size is normal. There is mild concentric hypertrophy. Systolic function is mildly reduced. The estimated ejection fraction is 45-50%. 2. Right ventricle: The cavity size is normal. Pacer wire noted in the right ventricle. Systolic function is normal. Systolic pressure is within the normal range. 3. Left atrium: The atrium is moderately dilated. 4. Mitral valve: There is mild regurgitation. 5. Aortic valve: There is mild to moderate regurgitation. Recommendations: Compared to prior study from 03/2018, findings are similar - the anteroapical and apical segments appear with normal function on this study but may be off-axis views (previously noted to be hypokinetic) TRY Exam Date: 09/20/18 180 ADM Status: ADM Dori IMPRESSION: FINDINGS CONSISTENT WITH COPD, NO EVIDENCE FOR ACUTE FINDING. Assessment/Plan I think given the prolonged symptoms and normal troponins his presentation was unlikely to be related to cardiac ischemia. The newly small described defect on poor quality stress imaging is of uncertain significance but I do not think is currently clinically relevant and I did not adjust his anti-anginals. I am very strongly suspicious that his symptoms were GI related. I did recommend we add an H2 concepcion to his GI regimen and he declined. A ct scan from 03/2016 showed distended stomach filled with debris. An esophagram from 12/2015 was normal. surgical changes on ct scan from 03/2017 note post gastrojejunostomy which patient states is the surgery he had. A CT scan from 03/2018 showed abdominal wall hernia containing anterior wall of stomach slightly increased in size from prior. It is not even clear than adding an h2 concepcion to PPI would be helpful but it would be a relatively simple addition. He is already taking reglan. An erythromycin allergy is noted. Could consider another promotility agent pending clinical course. Patient can be discharged from a cardiac standpoint.
[2018-09-21] MEDS ORDERED: Warfarin TAB(*) 5 MG PO ONE (17:00)
--- NOTE | 2018-09-21 22:09 | DS ---
CC: Dr. Oglesby; Dr. Guevara * DISCHARGE SUMMARY: DATE OF ADMISSION: 09/20/18 DATE OF DISCHARGE: 09/21/18 PRIMARY CARE PROVIDER: Dr. Oglesby. OUTPATIENT HAZARD MITIGATION OFFICER: Dr. Guevara. ATTENDING PHYSICIAN: Dr. Hudson * (dictated by Cassie Rich NP). PRIMARY DIAGNOSIS: Chest pain. SECONDARY DIAGNOSES: 1. Ischemic cardiomyopathy. 2. Sick sinus syndrome, status post pacer. 3. Atrial fibrillation. 4. Gastroparesis. 5. Left bundle-branch block. 6. Myocardial infarction with stents and coronary artery bypass graft. 7. Hypertension. 8. Dyslipidemia. 9. Macular degeneration. CONSULTATIONS WHILE IN THE HOSPITAL: Dr. Burr from Cardiology. PROCEDURES WHILE IN THE HOSPITAL: No procedures. STUDIES WHILE IN THE HOSPITAL: Echocardiogram: Impression: Paced rhythm. Chest x-ray: Impression: Findings consistent with COPD. No evidence of acute findings. Transthoracic echo: Impression: Left ventricle: The cavity size is normal. There is mild concentric hypertrophy. Systolic function is mildly reduced. The estimated ejection fraction is 45% to 50%. Right ventricle: The cavity size is normal. Pacer wire noted in the right ventricle. Systolic function is normal. Systolic pressure is within normal range. Left atrium: The atrium is moderately dilated. Mitral valve: There is mild regurgitation. Aortic valve: There is mild- to-moderate regurgitation. Compared to the study from 03/23/18 , findings are similar, the anterior apical and apical segments appear with normal function on this study, but may be off axis view (previously noted to be hyperkinetic). Nuclear stress scan: No compelling evidence for stress-induced ischemia. Apical and apical to midanterior wall and small basilar left wall infarcts. Interval decrease in size of lateral wall perfusion defect compared to 2015 exam. Global hypokinesis, most marked at inferior and lateral [place]. Estimated left ventricular systolic function is 41%, decreased from 45% previously. Intermediate risk based on nuclear portion. DISCHARGE HOME MEDICATIONS: Continued home medications: 1. Warfarin 5 mg p.o. daily. 2. Crestor 10 mg p.o. bedtime. 3. Inspra 12.5 mg p.o. daily. 4. Vitamin B12 injections of 1000 mcg IM monthly. 5. Codeine 15 mg p.o. q.6 hours p.r.n., MDD 4. 6. Coreg 6.25 mg p.o. b.i.d. 7. Aspirin 81 mg p.o. daily. 8. Amiodarone 100 mg p.o. Tuesday and Tuesday. 9. Ventolin 2 puffs inhalation q.6 hours p.r.n. 10. Protonix 40 mg p.o. daily. 11. Nitroglycerin tab 0.4 mg sublingual q.5 minutes p.r.n. 12. Nitroglycerin 0.1 mg/hour patch one patch transdermally daily. 13. Reglan 10 mg p.o. t.i.d. p.r.n. 14. Ferrex 150 mg p.o. daily. 15. Flonase 2 sprays both nares daily p.r.n. 16. Ferrous sulfate 325 mg p.o. daily. Changed home medications: No home medications are changed. Discontinued home medications: No home medications were discontinued. HISTORY OF PRESENT ILLNESS/HOSPITAL COURSE: Mr. Rodriguez is an 87-year-old male with a past medical history significant for ischemic cardiomyopathy, sick sinus syndrome, atrial fibrillation, gastroparesis, left bundle-branch block, CAD, CHF, hypertension; who presented to the emergency department on 09/20/18 with complaints of chest pain. Please see history and physical dictated by myself for a complete summary of events leading up to this hospitalization; but , in short, the patient reported nausea followed chest pain, shortness of breath , and dizziness around 1630 on 09/20/18. The patient presented to the emergency room via EMS. The patient's EKG was unremarkable. The patient's initial troponin and routine labs were unremarkable with the exception of slight macrocytic anemia and elevated BNP of 151. Given the patient's symptoms and significant cardiac history, he was admitted to telemetry for further evaluation. While on telemetry, the patient has remained in the paced rhythm. The patient has remained chest pain free. The patient denies nausea, vomiting, dizziness, syncope, palpitations. The patient has had repeat troponins, all of which had been 0.01. The patient underwent a nuclear stress test as mentioned above. The patient underwent an echo as mentioned above. The patient was seen by Cardiology, Dr. Burr. Dr. Burr suspects the patient's chest pain is more gastric in nature given it lasted for quite sometime and the patient used to be on a H2 concepcion, but is no longer. Dr. Burr offered to place the patient back on a H2 concepcion, but the patient declined. The patient is stable for discharge home. Vital Signs: Temp 97, HR 65, RR 20, O2 saturation 100% on room air, BP 143/64. REVIEW OF SYSTEMS: The patient denies chest pain, shortness of breath, nausea, vomiting, diaphoresis, dizziness, syncope. A 14-point review of systems was completed and all were negative. PHYSICAL EXAMINATION: General: Mr. Rodriguez is an 87-year-old male who is lying in bed. Appears to be in no acute distress. Appears stated age. HEENT: EOMs intact. PERRLA. Oral mucosa is moist without lesion. Posterior pharynx is clear. Neck: Supple. No lymphadenopathy. Respiratory: Lungs are clear to auscultation. No wheezes, rhonchi or rubs. Good aeration. Cardiac: S1, S2 present. No murmurs, rubs or gallops. Abdomen: Soft, nontender. Bowel sounds are normoactive. Extremities: No edema. No clubbing or cyanosis. Pedal pulses 2+ bilaterally. Musculoskeletal: No pain or deformities. Skin: Grossly intact. Neuro: Neuro exam is grossly intact. No focal deficits or weakness noted. LABORATORY DATA: WBC 5.7, hemoglobin 12.6, hematocrit 36, MCV 96, MCH 34, INR 2.07. Sodium 138, potassium 3.4, chloride 108, carbon dioxide 23, BUN 17, creatinine 109. Hemoglobin A1c 5.4, triglycerides 101, cholesterol 123, LDL 60 , HDL 42.7, TSH 3.02. DISCHARGE PLAN/FOLLOWUP: 1. Chest pain: As mentioned above, the patient has been free from chest pain since he was admitted from the emergency department. The patient has also not had any associated symptoms. The patient has had a fairly unremarkable workup with 3 negative troponins, no EKGs, no evidence of changes on tele. The patient did have a nuclear stress test, which was intermediate risk. Dr. Burr has reviewed this. The patient should follow up with his outpatient training development director, Dr. Guevara. The patient had an echo, which is fairly unchanged from previously. We suspect that the patient's chest pain could be gastric in nature. The patient was offered to restart on H2 concepcion, which he declined at this time. 2. Ischemic cardiomyopathy: The patient should continue his home medications with no change including Coumadin, Crestor, Inspra, Coreg, aspirin, amiodarone, nitroglycerin. 3. Sick sinus rhythm: The patient has pacemaker. The patient should follow up with his primary care provider and have routine pacemaker interrogations as recommended. 4. Atrial fibrillation: The patient has been in a paced rhythm while hospitalized. The patient should continue his home medications of Coumadin, Coreg, and amiodarone. 5. Gastroparesis: The patient reports he is unable to eat anything without taking Reglan and his PPI. The patient should continue with medications, and primary care could consider restarting his H2 concepcion. 6. LA/stents/CABG: The patient should continue his home medications as mentioned above. The patient had a stress test while in the hospital and he should follow up with his primary care and his training development director. 7. Hypertension: The patient should continue his home medications the same. 8. Dyslipidemia: The patient had fasting lipids drawn while in the hospital as mentioned above. The patient should continue his statin. 9. CHF: The patient should continue his home medications as same. The patient should continue his low-sodium diet as mentions he is already on. 10. Macular degeneration: The patient should follow up with his primary care and have routine eye exams. 11. Followup: The patient should follow up with his primary care in 1 to 3 days. He should also follow up with Dr. Guevara as he was scheduled to see Dr. Guevara today, but unfortunately was unable to make that appointments given he was hospitalized. I would encourage the patient to call Dr. Guevara and make a followup appointment in 1 to 3 days also. 12. Education: The patient and were educated on signs and symptoms of new or worsening condition, and when to return to the emergency department. Both stated understanding. This is a summarized report of a complex medical history and hospital stay. For further details, please the entire medical record. TIME SPENT: Approximately 35 minutes was spent on this discharge, greater than half that time was spent [id number] with the patient discussing discharge plans and instructions. This plan was discussed with my attending, Dr. Hudson, who is in agreement with my plan of care. CASSIE RICH, [employer] ST[employer]ER [id number]/[facility] #: [id number] [facility] SYSTEM[facility]uan
[2018-09-22] MEDS ORDERED: Amiodarone TAB* 200 MG PO SCH (09:00)
== END 2018-09-21 17:13 | disposition home or self-care (01) ==
LOC: ED 17:34 → MEDTELE 20:05
PROVIDERS: ADMIT Internal Medicine; ATTEND Internal Medicine
DX: R07.9 Chest pain, unspecified (principal); I25.5 Ischemic cardiomyopathy; I49.5 Sick sinus syndrome; Z95.0 Presence of cardiac pacemaker; I48.91 Unspecified atrial fibrillation; K31.84 Gastroparesis; I44.7 Left bundle-branch block, unspecified; I25.2 Old myocardial infarction; Z95.5 Presence of coronary angioplasty implant and graft; R13.10 Dysphagia, unspecified; I10 Essential (primary) hypertension; E78.5 Hyperlipidemia, unspecified; Z91.81 History of falling; Z79.82 Long term (current) use of aspirin; Z88.6 Allergy status to analgesic agent; R42 Dizziness and giddiness; R55 Syncope and collapse; Z79.01 Long term (current) use of anticoagulants; Z85.828 Personal history of other malignant neoplasm of skin
CPT/HCPCS: 36415; 71045; 78452; 80048; 80053; 80061; 81003; 81015; 82550; 82553; 83036; 83605; 83735; 83880; 84443; 84484; 85025; 85610; 85730; 93005; 93017; 93306; 99284; A9270-GY; A9502; G0378; J2785

== ENCOUNTER 2019-03-22 14:29 | Emergency (ER) | payer MEDICARE ==
--- OUTSIDE RECORDS SUMMARY | 2019-03-22 14:36 | XMS REPORT | Continuity of Care Document ---
:1930 External Reference #:[id number] Author Name Víctor Horton MD (transmitted by agent of provider Samantha Martinez) Address [address] [place] [id number] Care Team Providers Name Role Phone Avinash Saleem MD - Orthopaedic Care Team Information Logistics Research Engineer Surgery Iraj Corbin MD - Orthopaedic Care Team Information Logistics Research Engineer Surgery Edwardo Serna MD - Neurology Care Team Information Logistics Research Engineer Juan Manuel Mathis MD - Care Team Information Logistics Research Engineer [phone] Otolaryngology Timothy Peraza MD - Urology Care Team Information Logistics Research Engineer [phone] Qiana Oglesby M.D. - Family Medicine Care Team Information Logistics Research Engineer Problems Active Problems Provider Date Congestive heart failure Maximilian Guevara M.D. Onset: 12/13/2013 Note: EF 40-45%, then 50-55% on last echo Chronic ischemic heart disease Maximilian Guevara M.D. 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 Onset: 06/11/2011 Legal blindness [place] Duy Peck M.D.,FACP Onset: 11/05/2011 Paroxysmal ventricular tachycardia Duy Peck M.D.,FACP Onset: 2011 Sinus node dysfunction Maximilian Guevara M.D. Onset: 11/05/2011 Mixed hyperlipidemia Maximilian Guevara M.D. Onset: 08/30/2012 Chronic kidney disease stage 2 Duy Peck M.D.,FACP Onset: 03/26/2015 Peroneal tendinitis, right leg Avinash Saleem M.D. Onset: 06/12/2015 Sprain of ankle Jaylen Hernandez MD Onset: 06/16/2018 Social History Type Date Description Comments Sex Unknown Tobacco Use Start: Unknown Never Smoked Cigarettes ETOH Use Denies alcohol use Recreational Drug Use Denies Drug Use Tobacco Use Start: Unknown Patient has never smoked Smoking Status Reviewed: 02/08/19 Patient has never smoked Exercise Type/Frequency Does not exercise Allergies, Adverse Reactions, Alerts Active Allergies Reaction Severity Comments Date Lipitor leg cramps 2009 Erythromycin elevated HR, BP 11/26/2009 Codeine pt can not sleep. 04/27/2018 Inactive Allergies NKDA 03/04/2008 Medications Active Medications SIG Qnty Indications Ordering Provider Date Symbicort Inhale 1 puff 10.2units J44.9 Kirstie Del Valle, 04/17/2018 By Mouth Two COMMUNICATIONS ADMINISTRATOR 80-4.5mcg/Act Times Daily Aerosol Using A Spacer -- Rinse Mouth After Use R05 Pro Comfort Inhaler use pacer with 1units Kirstie Del Valle, 04/17/2018 Spacer Chamber Adult Symbicort COMMUNICATIONS ADMINISTRATOR Misc Polysaccharide Iron 1 every day PO 30caps Duy Torres 02/20/2018 Chloé Peck M.D.,FACP 469-05-2dd-mcg-mg Capsules Fluticasone Propionate 2 sprays each nostril 16gm J06.9 Duy Torres 02/06 every day as needed Jose D Peck,FACP 50mcg/Act Suspension Nitro-Dur apply 1 patch daily 30units I25.10 Matilda Rhoades, 01/17/2018 0.1mg/HR 12 hours and remove N.P. Patches 24HR at bedtime. Carvedilol 1 by mouth twice a 180tabs Maximilian Mendez 07/01/2017 6.25mg Tablets day Jose D Guevara Cyanocobalamin 1 milliliters 6mon D53.9 Iraj De Santiago, 08/27/2015 1000mcg/ML intramuscular [id number] MKaren Solution Metoclopramide HCL Take 1 Tablet By 90tabs Lizett Austin MD 08/22/2015 10mg Mouth Three Times Tablets Daily as Needed Zofran take one tablet by 40tabs Qiana Oglesby MD 02/19/2015 4mg Tablets mouth every 6 hours as needed Amiodarone HCL 1/2 by mouth every 24tabs Maximilian Mendez 05/09/2014 200mg tuesday Jose D Guevara Tablets Inspra 1/2 by mouth every 45tabs Maximilian Mendez 12/13/2013 25mg Tablets day Jose D Guevara Oxygen 1 l nc at bedtime 1units Maximilian Mendez 11/05/2013 Angela Guevara M.D. Crestor 1 by mouth every 90tabs I25.10 Qiana Oglesby MD 09/20/2013 10mg Tablets evening Ventolin HFA 2 puffs by mouth four 30units 493.10 Duy Torres 06/28/2013 108(90Base) times a day as needed Jose D Peck,FACP mcg/Act Aerosol Aspirin 81 po qd Maximilian Mendez 02/19/2013 81mg Tablets Jose D Guevara DRtat one sl q5min up to 3 25tabs Maximilian Mendez 06/11/2011 0.4mg Tablets doses as needed Jose D Guevara Sub Protonix Take One Tablet By 90tabs Duy Torres 03/03/[address] Mouth Once Daily Jose D Peck,[facility] Warfarin Sodium 1 tab x 5 days and 100tabs Matilda Rhoades, 5mg 1/2 tab x 2 days or N.P. Tablets as directed by Iron 1 by mouth every day Unknown 325(65Fe) mg Tablets Prednisone two tabs by mouth Unknown 20mg Tablets every day for ten days Benzonatate three times daily as Unknown 100mg needed for cough. Capsules Guaifenesin-Codeine 5-10 milliliters Unknown every evening as 100-10mg/5ML Solution needed Codeine Sulfate 1 every 6 hours as Unknown 15mg needed for cough Tablets Medications Administered in Office Medication SIG Qnty Indications Ordering Provider Date B-12 Injection Nurse Visit A 12/21/2018 Injection B-12 Injection Nurse Visit A 10/27/2018 Injection B-12 Injection Nurse Visit A 08/18/2018 Injection B-12 Injection Nurse Visit C 06/23/2018 Injection B-12 Injection Nurse Visit [place] 05/04/2018 Injection B-12 Injection Qiana Oglesby MD 03/13/2018 Injection B-12 Injection Nurse Visit A 02/16/2018 Injection B-12 Injection Nurse Visit A 01/05/2018 Injection B-12 Injection Nurse Visit A 11/28/2017 Injection B-12 Injection Nurse Visit A 10/17/2017 Injection B-12 Injection Nurse Visit A 09/05/2017 Injection B-12 Injection Duy Peck, 08/03/2017 Injection Jose D,[facility] B-12 Injection Duy Peck, 06/23/2017 Injection Jose D,[facility] B-12 Injection Nurse Visit A 05/03/2017 Injection B-12 Injection Duy Peck, 04/01/2017 Injection Jose D,[facility] B-12 Injection Nurse Visit A 03/01/2017 Injection B-12 Injection Nurse Visit A 01/28/2017 Injection B-12 Injection Duy Peck, 12/31/2016 Injection Jose D,[facility] B-12 Injection Nurse Visit A 11/26/2016 Injection B-12 Injection Nurse Visit A 10/22/2016 Injection B-12 Injection Nurse Visit A 09/21/2016 Injection B-12 Injection Nurse Visit A 08/20/2016 Injection B-12 Injection Nurse Visit A 07/19/2016 Injection B-12 Injection Nurse Visit A 06/18/2016 Injection B-12 Injection Nurse Visit A 05/17/2016 Injection B-12 Injection Duy Peck, 04/13/2016 Injection Jose D,[facility] B-12 Injection Nurse Visit A 03/08/2016 Injection B-12 Injection Nurse Visit A 02/06/2016 Injection B-12 Injection Duy Peck, 01/08/2016 Injection Jose D,[facility] B-12 Injection Nurse Visit A 12/11/2015 Injection B-12 Injection Nurse Visit A 12/11/2015 Injection B-12 Injection Nurse Visit A 11/07/2015 Injection B-12 Injection Nurse Visit C 10/08/2015 Injection B-12 Injection Nurse Visit C 09/04/2015 Injection B-12 Injection Nurse Visit C 08/07/2015 Injection Depomedrol 40MG Avinash Saleem M.D. 07/24/2015 Injection B-12 Injection Nurse Visit C 07/10/2015 Injection B-12 Injection Nurse Visit C 06/12/2015 Injection B-12 Injection Nurse Visit C 05/09/2015 Injection B-12 Injection Nurse Visit C 04/10/2015 Injection B-12 Injection Nurse Visit C 03/06/2015 Injection B-12 Injection Nurse Visit C 02/06/2015 Injection B-12 Injection Nurse Visit C 01/09/2015 Injection B-12 Injection Nurse Visit C 12/12/2014 Injection B-12 Injection Nurse Visit C 11/14/2014 Injection B-12 Injection Nurse Visit C 10/10/2014 Injection B-12 Injection Nurse Visit [place] 09/12/2014 Injection B-12 Injection Nurse Visit A 08/08/2014 Injection B-12 Injection Nurse Visit A 07/11/2014 Injection B-12 Injection Nurse Visit [place] 06/06/2014 Injection B-12 Injection Nurse Visit C 05/10/2014 Injection B-12 Injection Nurse Visit [place] 04/08/2014 Injection B-12 Injection Nurse Visit [place] 03/06/2014 Injection B-12 Injection Nurse Visit [place] 02/04/2014 Injection B-12 Injection Duy Peck, 01/02/2014 Injection M.D.,FACP B-12 Injection Duy Peck, 11/02/2013 Injection M.D.,[facility] B-12 Injection Nurse Visit [place] 10/01/2013 Injection B-12 Injection Nurse Visit [place] 08/28/2013 Injection B-12 Injection Nurse Visit [place] 07/30/2013 Injection B-12 Injection Duy Peck, 06/28/2013 Injection M.D.,FACP B-12 Injection Duy Peck, 06/28/2013 Injection M.D.,[facility] B-12 Injection Nurse Visit [place] 06/01/2013 Injection B-12 Injection Nurse Visit [place] 05/01/2013 Injection B-12 Injection Nurse Visit [place] 04/03/2013 Injection B-12 Injection Nurse Visit [place] 03/06/2013 Injection B-12 Injection Duy Peck, 01/30/2013 Injection M.D.,[facility] B-12 Injection Nurse Visit [place] 12/22/2012 Injection B-12 Injection Duy Peck, 11/23/2012 Injection M.D.,[facility] B-12 Injection Nurse Visit [place] 10/26/2012 Injection B-12 Injection Nurse Visit [place] 09/26/2012 Injection B-12 Injection Nurse Visit [place] 08/24/2012 Injection B-12 Injection Nurse Visit [place] 07/20/2012 Injection B-12 Injection Nurse Visit [place] 06/22/2012 Injection B-12 Injection Nurse Visit [place] 04/24/2012 Injection B-12 Injection Nurse Visit [place] 03/24/2012 Injection Depomedrol 80MG Avinash Saleem M.D. 03/01/2012 Injection B-12 Injection Nurse Visit [place] 02/28/2012 Injection B-12 Injection Nurse Visit [place] 01/24/2012 Injection B-12 Injection Nurse Visit [place] 12/23/2011 Injection Depomedrol 80MG Avinash Saleem M.D. 12/10/2011 Injection B-12 Injection Nurse Visit [place] 11/22/2011 Injection B-12 Injection Nurse Visit [place] 10/20/2011 Injection B-12 Injection Nurse Visit [place] 09/20/2011 Injection Depomedrol 80MG Avinash Saleem M.D. 08/19/2011 Injection B-12 Injection Nurse Visit [place] 08/18/2011 Injection B-12 Injection Nurse Visit [place] 07/19/2011 Injection B-12 Injection Nurse Visit [place] 06/17/2011 Injection Synvisc Or Synvisc-One Avinash Saleem M.D. 05/19/2011 Injection 1 MG Injection Synvisc Or Synvisc-One Confucianist HJamilah Duarte, 05/13/2011 Injection 1 MG RPA-C Injection B-12 Injection Nurse Visit [place] 05/13/2011 Injection Synvisc Or Synvisc-One Avinash Saleem M.D. 05/06/2011 Injection 1 MG Injection B-12 Injection Nurse Visit [place] 04/12/2011 Injection B-12 Injection Nurse Visit [place] 03/10/2011 Injection B-12 Injection Nurse Visit [place] 02/08/2011 Injection B-12 Injection Nurse Visit [place] 01/07/2011 Injection B-12 Injection Nurse Visit [place] 12/08/2010 Injection B-12 Injection Duy Peck, 11/03/2010 Injection Jose D,[facility] B-12 Injection Nurse Visit [place] 10/07/2010 Injection Depomedrol 80MG Avinash Saleem M.D. 09/24/2010 Injection B-12 Injection Nurse Visit [place] 09/07/2010 Injection B-12 Injection Nurse Visit [place] 08/05/2010 Injection B-12 Injection Nurse Visit [place] 07/06/2010 Injection B-12 Injection Nurse Visit [place] 06/05/2010 Injection B-12 Injection Nurse Visit [place] 05/08/2010 Injection B-12 Injection Duy Peck, 04/07/2010 Injection Jose D,[facility] B-12 Injection Aidan Marte M.D. 03/04/2010 Injection B-12 Injection Nurse Visit [place] 01/28/2010 Injection B-12 Injection Nurse Visit [place] 12/29/2009 Injection B-12 Injection Duy Peck, 11/26/2009 Injection Jose D,[facility] Immunizations CPT Code Status Date Vaccine Reaction Lot # [id number] Given 01/05/2018 Influenza Virus Vaccine, No immediate [id number] Quadrivalent, Split, reaction.[id number] Preservative Free 44170 Given 12/31/2016 Influenza Virus Vaccine, [id number] Quadrivalent, Split, Preservative Free 55182 Given 01/08/2016 Influ Virus Vaccine, [id number] Quadrivalent, Split Virus, [place] [address] Given 01/09/2015 Influenza Virus Vaccine, [id number] Quadrivalent, Split, Preservative Free 01227 Given 01/02/2014 Influenza Virus Vaccine, [id number] Quadrivalent, Split, Preservative Free 91501 Given 01/02/2014 Pneumococcal Conjugate [id number] Vaccine 13 Valent For Intramuscular Use 66200 Given 01/30/2013 Flu Vaccine Split Virus [id number] Preservative Free For Indiv 3Yr Older Q2038 Given 12/23/2011 Fluzone Vaccine [id number] 80943 Given 12/23/2011 Zoster (Zostavax) [id number] 04927 Given 11/05/2011 Tdap - [id number] Tetanus/Diptheria/Acellular Pertussis Q2038 Given 01/07/2011 Fluzone Vaccine [id number] 33967 Given 01/28/2010 Influenza Virus 3Yrs & Over [id number] 02794 Given 03/20/2009 Influenza Virus Vaccine, [id number] 5P Pandemic Formulation 96955 Given 03/20/2009 Administration Swine Flu Shot 15561 Given 04/04/2008 Pneumonia Vaccine Vital Signs Date Vital Result Comment 02/08/2019 11:23am Height 61 inches 5'1" Weight 158.25 lb Heart Rate 75 /min BP Systolic 110 mmHg BP Diastolic 63 mmHg Body Temperature 97.5 F O2 % BldC Oximetry 97 % BMI (Body Mass Index) 29.9 kg/m2 12/18/2018 9:15am Height 63 inches 5'3" Weight 161.00 lb Heart Rate 76 /min BP Systolic Sitting 122 mmHg BP Diastolic Sitting 60 mmHg O2 % BldC Oximetry 96 % BMI (Body Mass Index) 28.5 kg/m2 Results Test Acquired Date Facility Test Result H/L Range Note CBC Auto 09/20/2018 [facility] White Blood 8.9 10^3/uL Normal 3.5-10.[address] [place] [address] [phone] Red Blood Count 3.67 10^6/uL Low 4.18-5.48 Hemoglobin 12.1 g/dL Low 14.0-18.0 Hematocrit 36 % Low 42-52 Mean Corpuscular Volume 97 fL High 80-94 Mean Corpuscular Hemoglobin 33 pg High 27-31 Mean Corpuscular HGB Conc 34 g/dL Normal 31-36 Red Cell Distribution Width 14 % Normal 10-15 Platelet Count 227 10^3/uL Normal 150-450 Mean Platelet Volume 7.7 fL Normal 7.4-10.4 Abs Neutrophils 5.9 10^3/uL Normal 1.5-7.7 Abs Lymphocytes 2.1 10^3/uL Normal 1.0-4.8 Abs Monocytes 0.7 10^3/uL Normal 0-0.8 Abs Eosinophils 0.1 10^3/uL Normal 0-0.6 Abs Basophils 0.1 10^3/uL Normal 0-0.2 Abs Nucleated RBC 0.0 10^3/uL Granulocyte % 66.2 % Lymphocyte % 23.3 % Monocyte % 8.4 % Eosinophil % 1.3 % Basophil % 0.8 % Nucleated Red Blood Cells % 0.0 Laboratory test 09/20/2018 [facility] Lactic Acid 1.0 mmol/L Normal 0.5-2.0 1 finding [address] [place] [address] [phone] Inr/Protime 09/20/2018 [facility] Inr 2.01 High 0.82-1.09 2 [address] [place] [address] [phone] Laboratory test 09/20/2018 [facility] Partial 43.4 High 26.0- 38.0 finding [address] [facility] [place] [address] Time PTT [phone] B-Type Natriuretic Peptide BNP 151 pg/mL High <=100 Comp Metabolic 09/20/2018 [facility] Sodium 135 mmol/L Normal 135-145 Panel [address] [place] [address] [phone] Potassium 4.2 mmol/L Normal 3.5-5.0 Chloride 106 mmol/L Normal 101-111 Co2 Carbon Dioxide 21 mmol/L Low 22-32 Anion Gap 8 mmol/L Normal 2-11 Glucose 113 mg/dL High 70-100 Blood Urea Nitrogen 19 mg/dL Normal 6-24 Creatinine 1.13 mg/dL Normal 0.67-1.17 BUN/Creatinine Ratio 16.8 Normal 8-20 Calcium 8.8 mg/dL Normal 8.6-10.3 Total Protein 6.2 g/dL Low 6.4-8.9 Albumin 3.7 g/dL Normal 3.2-5.2 Globulin 2.5 g/dL Normal 2-4 Albumin/Globulin Ratio 1.5 Normal 1-3 Total Bilirubin 0.50 mg/dL Normal 0.2-1.0 Alkaline Phosphatase 71 U/L Normal 34-104 Alt 11 U/L Normal 7-52 Ast 18 U/L Normal 13-39 Egfr Non- 61.7 >60 Egfr 74.6 >60 3 Laboratory test 09/20/2018 [facility] Magnesium 2.0 mg/dL Normal 1.9-2.[address] [place] [address] [phone] Creatine Kinase(CK) 51 U/L Normal 10-223 Troponin-I (TnI) 0.00 ng/mL <0.04 4 CKMB 09/20/2018 [facility] CKMB 1.3 ng/mL Normal 0.6-6.[address] ng/mL [place], [place] [id number] [phone] Laboratory test 09/20/2018 [facility] TSH 3.02 Normal 0.34- 5.[address] (Thyroid mcIU/[place] [address] Stim Horm) [phone] Urinalysis 09/20/2018 [facility] Urine Straw Profile [address] [place] [address] [phone] Urine Appearance Clear Urine Specific [place] 1.006 Low 1.010-1.030 Urine pH 5.0 Normal 5-9 Urine Urobilinogen Negative Negative Urine Ketones Negative Negative Urine Protein Negative Negative Urine Leukocytes Negative Negative Urine Blood 1+ Abnormal Negative Urine Nitrite Negative Negative Urine Bilirubin Negative Negative Urine Glucose Negative Negative Urine White Blood Cell Absent Absent Urine Red Blood Cell Trace(0-2/hpf) Absent Urine Bacteria Absent Absent 1 [place] Severe Sepsis and Septic Shock Management Bundle Measure requires all lactic acids initially measuring >2.0 mmol/L be repeated. 2 Standard intensity warfarin therapeutic range: 2.0-3.0 High intensity warfarin therapeutic range: 2.5-3.5 3 Because ethnic data is not always readily available, this report includes an eGFR for both -Americans and non- Americans. The National Kidney Disease Education Program (NKDEP) does not endorse the use of the MDRD equation for patients that are not between the ages of 18 and 70, are , have extremes of body size, muscle mass, or nutritional status, or are non- or non-. According to the National Kidney Foundation, irrespective of diagnosis, the stage of the disease is based on the level of kidney function: Stage Description GFR(mL/min/1.73 m(2)) 1 Kidney damage with normal or decreased GFR 90 2 Kidney damage with mild decrease in GFR 60-89 3 Moderate decrease in GFR 30-59 4 Severe decrease in GFR 15-29 5 Kidney failure <15 (or dialysis) 4 Troponin-I testing on Plasma Separator Tubes (PST) has a known false positive rate of 0.20-0.40%. All positive troponins reflex immediately to secondary confirmatory testing. Using the [employer] DxI 800 Access Immunoassay systems, the 99th percentile upper reference limit was demonstrated to be < 0.03 ng/mL. Procedures Date Code Description Status 01/11/2019 11934 Pace Maker Eval W/Iterative Adjustment Multiple Lead Completed Pacemaker 01/11/2019 88591 Pace Maker Eval W/Iterative Adjustment Multiple Lead Completed Pacemaker 12/21/2018 10409 Admin Of Inj Completed 10/30/2018 99302 EKG Tracing & Interpretation Completed 10/27/2018 03363 Admin Of Inj Completed 10/12/2018 75509 Pace Maker Eval W/Iterative Adjustment Multiple Lead Completed Pacemaker 10/12/2018 13617 Pace Maker Eval W/Iterative Adjustment Multiple Lead Completed Pacemaker 09/21/2018 45607 ECHO Transthorasic Realtime 2D W Doppler & Color Flow Hosp Completed 09/21/2018 56277 Treadmill Interp/Report Only Completed 09/21/2018 28332 Stress Test Supervsn W/Out I/R Completed 09/21/2018 87124 EKG, Interpretation Only Completed 08/18/2018 21105 Admin Of Inj Completed Medical Devices Description No Information Available Encounters Type Date Location Provider Dx Diagnosis Office Visit 12/18/2018 Pulmonology And Aury Jeffries, 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:15a [facility] 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 R07.9 Chest pain , Of Child Welfare Worker Burr, DO unspecified FACC R11.0 Nausea R42 Dizziness and giddiness Office Visit 09/21/2018 11:39a [facility] R07.9 Chest pain, Assoc,pc Shortle, BLOW TORCH OPERATOR unspecified Hospitalists Office Visit 09/20/2018 11:38a [facility] R07.9 Chest pain, Assoc,pc Shortle, BLOW TORCH OPERATOR unspecified Hospitalists Assessments Date Code Description Provider 02/08/2019 Z00.01 Encounter for general adult medical Víctor Horton MD examination with abnormal findings 02/08/2019 I48.20 Chronic atrial fibrillation, Nurse Visit cc unspecified 02/08/2019 I48.20 Chronic atrial fibrillation, Víctor Horton MD unspecified 02/08/2019 Z79.01 halfway (current) use of Víctor Horton MD anticoagulants 02/08/2019 I42.9 Cardiomyopathy, unspecified Víctor Horton MD 02/08/2019 D64.9 Anemia, unspecified Víctor Horton MD 02/08/2019 Z23 Encounter for immunization Víctor Horton MD 02/02/2019 I48.20 Chronic atrial fibrillation, Nurse Visit cc unspecified 01/23/2019 I48.20 Chronic atrial fibrillation, Maximilian Guevara M.D. 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 anticoagulants 01/23/2019 Z79.01 halfway (current) use of Nurse Visit cc anticoagulants 01/16/2019 I48.20 Chronic atrial fibrillation, Maximilian Guevara M.D. 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 2018 I48.2 Chronic atrial fibrillation Nurse Visit cc 2018 Z79.01 halfway (current) use of Maixmilian Guevara M.D. 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 11/09/2018 I48.0 Paroxysmal atrial fibrillation Nurse Visit cc 11/09/2018 Z79.01 halfway (current) use of Maximilian Guevara M.D. anticoagulants 11/09/2018 Z79.01 halfway (current) use of Nurse Visit cc anticoagulants 10/30/2018 I48.0 Paroxysmal atrial fibrillation Maximilian Guevara M.D. 10/30/2018 R07.9 Chest pain, unspecified Maximilian Guevara M.D. 10/30/2018 I42.9 Cardiomyopathy, unspecified Maximilian Guevara M.D. 10/30/2018 I25.10 Coronary atherosclerosis Maximilian Guevara M.D. 10/30/2018 K21.9 Gastroesophageal reflux disease with Maximilian Guevara M.D. hiatal hernia 10/30/2018 Z95.0 Presence of cardiac pacemaker Maximilian Guevara M.D. 10/27/2018 D51.9 Vitamin B12 deficiency anemia, Nurse Visit A unspecified 10/23/2018 I48.2 Chronic atrial fibrillation Maximilian Guevara M.D. 10/23/2018 I48.2 Chronic atrial fibrillation Nurse Visit cc 10/23/2018 Z79.01 halfway (current) use of Maximilian Guevara M.D. anticoagulants 10/23/2018 Z79.01 halfway (current) use of Nurse Visit cc anticoagulants 10/12/2018 I49.5 Sick sinus syndrome Ica Pacer Schedule 10/12/2018 Z95.0 Presence of cardiac pacemaker Maximilian Guevara M.D. 10/12/2018 Z95.0 Presence of cardiac pacemaker Ica Pacer Schedule 10/09/2018 I48.0 Paroxysmal atrial fibrillation Maximilian Guevara M.D. 10/09/2018 I48.0 Paroxysmal atrial fibrillation Nurse Visit cc 10/09/2018 Z79.01 halfway (current) use of Maximilian Guevara M.D. anticoagulants 10/09/2018 Z79.01 halfway (current) use of Nurse Visit cc anticoagulants 09/25/2018 I48.2 Chronic atrial fibrillation Maximilian Guevara M.D. 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 anticoagulants 09/25/2018 Z79.01 halfway (current) use of Nurse Visit cc anticoagulants 09/21/2018 R94.31 Abnormal electrocardiogram [ECG] [EKG] Charles Harkins M.D., [facility], [facility] 09/21/2018 R07.9 Chest pain, unspecified Cassie Shortle, BLOW TORCH OPERATOR 09/21/2018 R07.9 Chest pain, unspecified Srini S. Burr, DO [facility] 09/21/2018 R07.9 Chest pain, unspecified Toy Jamison M.D., [facility] 09/21/2018 R07.9 Chest pain, unspecified Srini S. Burr, DO [facility] 09/21/2018 R11.0 Nausea Srini S. Burr, DO [facility] 09/21/2018 R42 Dizziness and giddiness Srini S. Burr, DO [facility] 09/20/2018 R07.9 Chest pain, unspecified Cassie Shortle, BLOW TORCH OPERATOR 09/18/2018 I48.2 Chronic atrial fibrillation Maximilian Guevara M.D. 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 08/18/2018 D51.9 Vitamin B12 deficiency anemia, Nurse Visit A unspecified 08/18/2018 Z79.01 halfway (current) use of Maximilian Guevara M.D. 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 at [facility]2018 - Víctor Horton, Z00.01 Encounter for general adult medical examination with abnormal findingsComments:Getting flu vaccine today. Routine Health Maintenance up to date. Depression screen: on fileADL screen: negativeCognitive impairment screen: negative Reviewed [facility] DM/HM form.I48.20 Chronic atrial fibrillation, unspecifiedComments:Please call the office of Dr. Guevara to clarify what dose of the amiodarone they want you on. When they checked your pacemaker they found you had frequent Afib so there was talk of increasing the frequency to daily. You were regular in the office today. Will check thyroid, liver function tests and basic chemistry given your amiodarone useZ79.01 buttermilk drier operator (current) use of anticoagulantsComments:INR checks with Cardiology. Sometimes antibiotics or other medications will influence your levels soplease let the office know if another provider starts you on a new medication.I42.9 Cardiomyopathy, oxgdxviypioR95.9 Anemia, unspecifiedComments:Will recheck your anemia.Z23 Encounter for immunizationImmunizations/Injections:Fluzone High Dose Functional Status Description No Information Available Mental Status Description No Information Available Referrals Description No Information Available
--- OUTSIDE RECORDS SUMMARY | 2019-03-22 14:36 | XMS REPORT | Continuity of Care Document ---
:1930 External Reference #:[id number] Author Name Maximilian Guevara M.D. (transmitted by agent of provider Grisel Ocampo) Address [address] [place] [id number] Care Team Providers Name Role Phone Avinash Saleem MD - Orthopaedic Care Team Information [facility] Surgery Iraj Crobin MD - Orthopaedic Care Team Information [facility] Surgery Edwardo Serna MD - Neurology Care Team Information [facility] [phone] Juan Manuel Mathis MD - Care Team Information [facility]utter [phone] Otolaryngology Timothy Peraza MD - Urology Care Team Information [facility]utter [phone] Qiana Oglesby M.D. - Family Medicine Care Team Information [facility] Cutter [phone] Problems Active Problems Provider Date Congestive heart [...] of ankle Jaylen Hernandez MD Onset: 06/16/2018 Paroxysmal atrial fibrillation Maximilian Guevara M.D. Onset: 02/16/2019 Social History Type Date Description Comments Sex Unknown Tobacco Use Start: Unknown Never Smoked Cigarettes ETOH Use Denies alcohol use Recreational Drug Use Denies Drug Use Tobacco Use Start: Unknown Patient has never smoked Smoking Status Reviewed: 02/28/19 Patient has never smoked Exercise Type/Frequency Does not exercise Allergies, Adverse Reactions, Alerts Active Allergies Reaction Severity Comments Date Lipitor leg cramps 2009 Erythromycin elevated HR, BP 11/26/2009 Codeine pt can not sleep. 04/27/2018 Inactive Allergies NKDA 03/04/2008 Medications Active Medications SIG Qnty Indications Ordering Provider Date Symbicort Inhale 1 puff 10.2units J44.9 Zsofia Eligio, 04/17/2018 By Mouth Two PHYSICIAN ALLERGIST IMMUNOLOGIST 80-4.5mcg/Act Times Daily Aerosol Using A Spacer -- Rinse Mouth After Use R05 Pro Comfort Inhaler use pacer with 1units Kirstie Del Valle, 04/17/2018 Spacer Chamber Adult Symbicort PHYSICIAN ALLERGIST IMMUNOLOGIST Misc Polysaccharide Iron 1 every day PO 30caps Duy Torres 02/20/2018 Chloé Peck M.D.,FACP 078-84-2yn-mcg-mg Capsules Fluticasone Propionate 2 sprays each nostril [...] D53.9 Iraj De Santiago, 08/27/2015 1000mcg/ML intramuscular [id number] Jose D Solution Metoclopramide HCL Take 1 Tablet By 90tabs Lizett Austin MD 08/22/2015 10mg Mouth Three Times Tablets Daily as Needed Zofran take one tablet by 40tabs Qiana Oglesby MD 02/19/2015 4mg Tablets mouth every 6 hours as needed Amiodarone HCL 1/2 by mouth 4 days 30tabs Maximilian Mendez 05/09/2014 200mg /week Jose D Guevara Tablets Inspra 1/2 by mouth every 45tabs Maximilian Mendez 12/13/2013 25mg Tablets day Jose D Guevara Oxygen 1 l nc at bedtime 1units Maximilian Mendez 11/05/2013 [facility] Jose D Guevara Crestor 1 by mouth every 90tabs I25.10 [...] Tablets DR Mouth Once Daily Jose D Peck,FACP Warfarin Sodium 1 tab x 5 days and 100tabs Matilda Juan J Foster, 5mg 1/2 tab x 2 days or N.P. Tablets as directed by dose response (Dr. Guevara) Iron 1 by mouth every day Unknown 325(65Fe) mg Tablets Medications Administered in Office Medication SIG Qnty Indications Ordering Provider Date B-12 Injection Víctor Horton MD 02/08/2019 Injection B-12 Injection Nurse Visit A 12/21/2018 Injection B-12 Injection Nurse Visit A 10/27/2018 Injection B-12 Injection Nurse Visit A 08/18/2018 Injection B-12 Injection Nurse Visit C 06/23/2018 Injection B-12 Injection Nurse Visit [facility] 05/04/2018 Injection B-12 Injection Qiana Oglesby MD 03/13/2018 Injection B-12 Injection Nurse Visit A 02/16/2018 Injection B-12 Injection Nurse Visit A 01/05/2018 Injection B-12 Injection Nurse Visit A 11/28/2017 Injection B-12 Injection Nurse Visit A 10/17/2017 Injection B-12 Injection Nurse Visit A 09/05/2017 Injection B-12 Injection Duy Peck, 08/03/2017 Injection [facility] B-12 Injection Duy Peck, 06/23/2017 Injection MKaren,[facility] B-12 Injection Nurse Visit A 05/03/2017 Injection B-12 Injection Duy Peck, 04/01/2017 Injection M.[facility] B-12 Injection Nurse Visit A 03/01/2017 Injection B-12 Injection Nurse Visit A 01/28/2017 Injection B-12 Injection Duy Peck, 12/31/2016 Injection M.Brian,FACP B-12 Injection Nurse Visit A 11/26/2016 Injection B-12 Injection Nurse Visit A 10/22/2016 Injection B-12 Injection Nurse Visit A 09/21/2016 Injection B-12 Injection Nurse Visit A 08/20/2016 Injection B-12 Injection Nurse Visit A 07/19/2016 Injection B-12 Injection Nurse Visit A 06/18/2016 Injection B-12 Injection Nurse Visit A 05/17/2016 Injection B-12 Injection Duy Peck, 04/13/2016 Injection Jose D,[facility] B-12 Injection Nurse Visit A 03/08/2016 Injection B-12 Injection Nurse Visit A 02/06/2016 Injection B-12 Injection Duy Peck, 01/08/2016 Injection Jose D,[facility] B-12 Injection Nurse Visit A 12/11/2015 Injection [...] C 10/10/2014 Injection B-12 Injection Nurse Visit [facility] 09/12/2014 Injection B-12 Injection Nurse Visit A 08/08/2014 Injection B-12 Injection Nurse Visit A 07/11/2014 Injection B-12 Injection Nurse Visit [facility] 06/06/2014 Injection B-12 Injection Nurse Visit C 05/10/2014 Injection B-12 Injection Nurse Visit [facility] 04/08/2014 Injection B-12 Injection Nurse Visit [facility] 03/06/2014 Injection B-12 Injection Nurse Visit [facility] 02/04/2014 Injection B-12 Injection Duy Peck, 01/02/2014 Injection Jose D,FACP B-12 Injection Duy Peck, 11/02/2013 Injection M.D.,FACP B-12 Injection Nurse Visit [facility] 10/01/2013 Injection B-12 Injection Nurse Visit [facility] 08/28/2013 Injection B-12 Injection Nurse Visit [facility] 07/30/2013 Injection B-12 Injection Duy Peck, 06/28/2013 Injection M.D.,FACP B-12 Injection Duy Peck, 06/28/2013 Injection M.[facility].,[facility] B-12 Injection Nurse Visit [facility] 06/01/2013 Injection B-12 Injection Nurse Visit [facility] 05/01/2013 Injection B-12 Injection Nurse Visit [facility] 04/03/2013 Injection B-12 Injection Nurse Visit [facility] 03/06/2013 Injection B-12 Injection Duy Peck, 01/30/2013 Injection M.D.,[facility] B-12 Injection Nurse Visit [facility] 12/22/2012 Injection B-12 Injection Duy Peck, 11/23/2012 Injection M.D.,[facility] B-12 Injection Nurse Visit [facility] 10/26/2012 Injection B-12 Injection Nurse Visit [facility] 09/26/2012 Injection B-12 Injection Nurse Visit [facility] 08/24/2012 Injection B-12 Injection Nurse Visit [facility] 07/20/2012 Injection B-12 Injection Nurse Visit [facility] 06/22/2012 Injection B-12 Injection Nurse Visit [facility] 04/24/2012 Injection B-12 Injection Nurse Visit [facility] 03/24/2012 Injection Depomedrol 80MG Avinash Saleem M.D. 03/01/2012 Injection B-12 Injection Nurse Visit [facility] 02/28/2012 Injection B-12 Injection Nurse Visit [facility] 01/24/2012 Injection B-12 Injection Nurse Visit [facility] 12/23/2011 Injection Depomedrol 80MG Avinash Saleem M.D. 12/10/2011 Injection B-12 Injection Nurse Visit [facility] 11/22/2011 Injection B-12 Injection Nurse Visit [facility] 10/20/2011 Injection B-12 Injection Nurse Visit [facility] 09/20/2011 Injection Depomedrol 80MG Avinash Saleem M.D. 08/19/2011 Injection B-12 Injection Nurse Visit [facility] 08/18/2011 Injection B-12 Injection Nurse Visit [facility] 07/19/2011 Injection B-12 Injection Nurse Visit [facility] 06/17/2011 Injection Synvisc Or Synvisc-One Avinash Saleem M.D. 05/19/2011 Injection 1 MG Injection Synvisc Or Synvisc-One Jonnie Duarte, 05/13/2011 Injection 1 MG RPA-C Injection B-12 Injection Nurse Visit [facility] 05/13/2011 Injection Synvisc Or Synvisc-One Avinash Saleem M.D. 05/06/2011 Injection 1 MG Injection B-12 Injection Nurse Visit [facility] 04/12/2011 Injection B-12 Injection Nurse Visit [facility] 03/10/2011 Injection B-12 Injection Nurse Visit [facility] 02/08/2011 Injection B-12 Injection Nurse Visit [facility] 01/07/2011 Injection B-12 Injection Nurse Visit [facility] 12/08/2010 Injection B-12 Injection Duy Peck, 11/03/2010 Injection [facility] B-12 Injection Nurse Visit [facility] 10/07/2010 Injection Depomedrol 80MG Avinash Saleem M.D. 09/24/2010 Injection B-12 Injection Nurse Visit [facility] 09/07/2010 Injection B-12 Injection Nurse Visit [facility] 08/05/2010 Injection B-12 Injection Nurse Visit [facility] 07/06/2010 Injection B-12 Injection Nurse Visit [facility] 06/05/2010 Injection B-12 Injection Nurse Visit [facility] 05/08/2010 Injection B-12 Injection Duy Peck, 04/07/2010 Injection MKaren,FACP B-12 Injection Aidan Marte M.D. 03/04/2010 Injection B-12 Injection Nurse Visit [facility] 01/28/2010 Injection B-12 Injection Nurse Visit [facility] 12/29/2009 Injection B-12 Injection Duy Peck, 11/26/2009 Injection M.Brian,FACP Immunizations CPT Code Status Date Vaccine Reaction Lot # [id number] Given 02/08/2019 Fluzone High Dose shot tolerated well, [id number] no immediate reaction 77693 Given 01/05/2018 Influenza Virus Vaccine, No immediate [id number] Quadrivalent, Split, reaction.jh Preservative Free 70764 Given 12/31/2016 Influenza Virus Vaccine, [id number] Quadrivalent, Split, Preservative Free 05165 Given 01/08/2016 Influ Virus Vaccine, [id number] Quadrivalent, Split Virus, [place] [address] Given 01/09/2015 Influenza Virus Vaccine, [id number] Quadrivalent, Split, Preservative Free 70270 Given 01/02/2014 Influenza Virus Vaccine, [id number] Quadrivalent, Split, Preservative Free 94221 Given 01/02/2014 Pneumococcal Conjugate [id number] Vaccine 13 Valent For Intramuscular Use 61046 Given 01/30/2013 Flu Vaccine Split Virus [id number] Preservative Free For Indiv 3Yr Older Q2038 Given 12/23/2011 Fluzone Vaccine [id number] 57016 Given 12/23/2011 Zoster (Zostavax) [id number] 53325 Given 11/05/2011 Tdap - [id number] Tetanus/Diptheria/Acellular Pertussis Q2038 Given 01/07/2011 Fluzone Vaccine [id number] 32648 Given 01/28/2010 Influenza Virus 3Yrs & Over [id number] 18104 Given 03/20/2009 Influenza Virus Vaccine, [id number] 5P Pandemic Formulation 70978 Given 03/20/2009 Administration Swine Flu Shot 43985 Given 04/04/2008 Pneumonia Vaccine Vital Signs Date Vital Result Comment 02/28/2019 11:29am Height 61 inches 5'1" Weight 159.12 lb with shoes Heart Rate 64 /min apical,regular BP Systolic Sitting 106 mmHg LA,reg cuff BP Diastolic Sitting 56 mmHg LA,reg cuff BMI (Body Mass Index) 30.1 kg/m2 Ejection Fraction 35%-40% Jatinder 02/16/19 02/13/2019 9:58am Height 61 inches 5'1" Weight 160.38 lb Heart Rate 80 /min BP Systolic Sitting 116 mmHg Lue (regular cuff) BP Diastolic Sitting 70 mmHg Lue (regular cuff) BMI (Body Mass Index) 30.3 kg/m2 Ejection Fraction 40-45% 03/30/18 Echocardiogram Results Test Acquired Date Facility Test Result H/L Range Note Inr/Protime 02/16/2019 [facility] Inr 2.55 High 0.82-1.[address] [place] [address] [phone] Laboratory test 02/13/2019 [facility] TSH 5.77 High 0.34-5.[address] (Thyroid mcIU/[place] [address] Stim Horm) [phone] Comp Metabolic 02/13/2019 [facility] Sodium 138 mmol/L Normal 135-[address] [place] [address] [phone] Potassium 4.5 mmol/L Normal 3.5-5.0 Chloride 107 mmol/L Normal 101-111 Co2 Carbon Dioxide 24 mmol/L Normal 22-32 Anion Gap 7 mmol/L Normal 2-11 Glucose 89 mg/dL Normal 70-100 Blood Urea Nitrogen 12 mg/dL Normal 6-24 Creatinine 1.34 mg/dL High 0.67-1.17 BUN/Creatinine Ratio 9.0 Normal 8-20 Calcium 9.3 mg/dL Normal 8.6-10.3 Total Protein 6.1 g/dL Low 6.4-8.9 Albumin 3.9 g/dL Normal 3.2-5.2 Globulin 2.2 g/dL Normal 2-4 Albumin/Globulin Ratio 1.8 Normal 1-3 Total Bilirubin 0.60 mg/dL Normal 0.2-1.0 Alkaline Phosphatase 78 U/L Normal 34-104 Alt 11 U/L Normal 7-52 Ast 18 U/L Normal 13-39 Egfr Non- 50.5 >60 Egfr 61.2 >60 2 Laboratory test 02/13/2019 [facility] Vitamin B12 934 pg/mL High 180-[address] [place], [place] [address] [phone] CBC Auto Diff 09/20/2018 [facility] White Blood 8.9 Normal 3.5 -10.8 101 Count 10^3/[place] [address] [phone] Red Blood Count 3.67 10^6/uL Low 4.18-5.48 [...] Blood Cells % 0.0 Laboratory test 09/20/2018 [facility] Lactic Acid 1.0 mmol/L Normal 0.5-2.0 [address] [place] [address] [phone] Inr/Protime 09/20/2018 [facility] Inr 2.01 High 0.82-1.[address] [place] [address] [phone] Laboratory test 09/20/2018 [facility] Partial 43.4 High 26.0- 38.[address] [place] [address] Time PTT [phone] B-Type Natriuretic Peptide BNP 151 pg/mL High <=100 Comp Metabolic 09/20/2018 [facility] Sodium 135 mmol/L Normal 135-[address] [place] [address] [phone] Potassium 4.2 mmol/L Normal 3.5-5.0 Chloride 106 [...] Egfr Non- 61.7 >60 Egfr 74.6 >60 6 Laboratory test 09/20/2018 [facility] Magnesium 2.0 mg/dL Normal 1.9-2.[address] [place] [address] [phone] Creatine Kinase(CK) 51 U/L Normal 10-223 Troponin-I (TnI) 0.00 ng/mL <0.04 7 CKMB 09/20/2018 [facility] CKMB 1.3 ng/mL Normal 0.6-6.[address] ng/[place] [address] [phone] Laboratory test 09/20/2018 [facility] TSH 3.02 Normal 0.34- 5.[address] (Thyroid mcIU/[place] [address] Stim Cqzl) [phone] Urinalysis 09/20/2018 [facility] Urine Straw Profile [address] [place] [address] [phone] Urine Appearance Clear Urine Specific Lejunior 1.006 Low 1.010-1.030 Urine pH 5.0 Normal 5-9 Urine Urobilinogen Negative Negative Urine Ketones Negative Negative Urine Protein Negative Negative Urine Leukocytes Negative Negative Urine Blood 1+ Abnormal Negative Urine Nitrite Negative Negative Urine Bilirubin Negative Negative Urine Glucose Negative Negative Urine White Blood Cell Absent Absent Urine Red Blood Cell Trace(0-2/hpf) Absent Urine Bacteria Absent Absent 1 Standard intensity warfarin therapeutic range: 2.0-3.0 High intensity warfarin therapeutic range: 2.5-3.5 2 Because ethnic data is not always readily [...] 15-29 5 Kidney failure <15 (or dialysis) 3 Normal Range 180 to 914 Indeterminate Range 145 to 180 Deficient Range <145 4 AZS Severe Sepsis and Septic Shock Management Bundle Measure requires all lactic acids initially measuring >2.0 mmol/L be repeated. 5 Standard intensity warfarin therapeutic range: 2.0-3.0 High intensity warfarin therapeutic range: 2.5-3.5 6 Because ethnic data is not always readily [...] 15-29 5 Kidney failure <15 (or dialysis) 7 Troponin-I testing on Plasma Separator Tubes (PST) has a known false positive rate of 0.20-0.40%. All positive troponins reflex immediately to secondary confirmatory testing. Using the [email or web address] 800 Access Immunoassay systems, the 99th percentile upper reference limit was demonstrated to be < 0.03 ng/mL. Procedures Date Code Description Status 02/16/2019 79035 Color Flow Doppler/Interp & Reprt Completed 02/16/2019 48851 Pulse Wave/Continuous-Interp.RPT Completed 02/16/2019 11463 Echocardiography, Transesophageal, Real Time W/Image 2D Completed W/W/O M-M 02/16/2019 37654 Cardioversion Completed 02/13/2019 40694 EKG Tracing & Interpretation Completed 02/08/2019 76169 Admin Of Inj Completed 01/11/2019 49912 Pace Maker Eval W/Iterative Adjustment Multiple Lead Completed Pacemaker 01/11/2019 97760 Pace Maker Eval W/Iterative Adjustment Multiple Lead Completed Pacemaker 12/21/2018 49896 Admin Of Inj Completed 10/30/2018 92229 EKG Tracing & Interpretation Completed 10/27/2018 47725 Admin Of Inj Completed 10/12/2018 20074 Pace Maker Eval W/Iterative Adjustment Multiple Lead Completed Pacemaker 10/12/2018 13798 Pace Maker Eval W/Iterative Adjustment Multiple Lead Completed Pacemaker 09/21/2018 94434 ECHO Transthorasic Realtime 2D W Doppler & Color Flow Hosp Completed 09/21/2018 84396 Treadmill Interp/Report Only Completed 09/21/2018 45591 Stress Test Supervsn W/Out I/R Completed 09/21/2018 84908 EKG, Interpretation Only Completed Medical Devices Description No Information Available Encounters Type Date Location Provider Dx Diagnosis Office Visit 02/13/2019 [facility] Maximilian Mendez I48.0 Paroxysmal atrial 9:40a Jose D Guevara fibrillation Z79.01 alf (current) use of anticoagulants I42.9 Cardiomyopathy, unspecified Z95.0 Presence of cardiac pacemaker Office Visit 12/18/2018 9:15a [facility] 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 Audit Spec 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 Office Visit 10/30/2018 9:20a [facility] Maximilian Mendez I48.0 Paroxysmal atrial Jose D Guevara fibrillation R07.9 Chest pain, unspecified I42.9 Cardiomyopathy, unspecified 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 K21.9 Gastro-esophageal reflux disease without esophagitis Z95.0 Presence of cardiac pacemaker Office Visit 09/21/2018 2:24p [facility] Srini Arita R07.9 Chest pain , Of Audit Spec Leno, unspecified FACC R11.0 Nausea R42 Dizziness and giddiness Office Visit 09/21/2018 11:39a [facility] R07.9 Chest pain, Assoc,pc Shortle, [employer] unspecified Hospitalists Office Visit 09/20/2018 11:38a [facility] R07.9 Chest pain, Assoc,pc Shortle, [employer] unspecified Hospitalists Assessments Date Code Description Provider 02/28/2019 I48.0 Paroxysmal atrial fibrillation Maximilian Guevara M.D. 02/28/2019 I42.9 Cardiomyopathy, unspecified Maximilian Guevara M.D. 02/28/2019 Z95.0 Presence of cardiac pacemaker Maximilian Guevara M.D. 02/28/2019 I25.10 Coronary atherosclerosis Maximilian Guevara M.D. 02/20/2019 I48.20 Chronic atrial fibrillation, Nurse Visit cc unspecified 02/16/2019 I48.0 Paroxysmal atrial fibrillation Maximilian Guevara M.D. 02/13/2019 I48.0 Paroxysmal atrial fibrillation Maximilian Guevara M.D. 02/13/2019 I48.20 Chronic atrial fibrillation, Nurse Visit cc unspecified 02/13/2019 Z79.01 alf (current) use of Maximilian Guevara M.D. anticoagulants 02/13/2019 I42.9 Cardiomyopathy, unspecified Maximilian Guevara M.D. 02/13/2019 Z95.0 Presence of cardiac pacemaker Maxmiilian Guevara M.D. 02/08/2019 I48.20 Chronic atrial fibrillation, Maximilian Guevara M.D. unspecified 02/08/2019 Z00.01 Encounter for general adult medical Víctor Horton MD examination with abnormal findings 02/08/2019 Z79.01 category specialist (current) use of Maximilian Guevara M.D. anticoagulants 02/08/2019 I48.20 Chronic atrial fibrillation, Nurse Visit cc unspecified 02/08/2019 Z79.01 category specialist (current) use of Nurse Visit cc anticoagulants 02/08/2019 I48.20 Chronic atrial fibrillation, Víctor Horton MD unspecified 02/08/2019 Z79.01 alf (current) use of Víctor Horton MD anticoagulants 02/08/2019 I42.9 Cardiomyopathy, unspecified Víctor Horton MD 02/08/2019 D64.9 Anemia, unspecified Víctor Horton MD 02/08/2019 Z23 Encounter for immunization Víctor Horton MD 02/02/2019 I48.20 Chronic atrial fibrillation, Nurse Visit cc unspecified 02/02/2019 Z79.01 category specialist (current) use of Nurse Visit cc anticoagulants 01/23/2019 I48.20 Chronic atrial fibrillation, Maximilian Guevara M.D. unspecified 01/23/2019 I48.20 Chronic atrial fibrillation, Nurse Visit cc unspecified 01/23/2019 Z79.01 alf (current) use of Maximilian Guevara M.D. anticoagulants 01/23/2019 Z79.01 alf (current) use of Nurse Visit cc anticoagulants 01/16/2019 I48.20 Chronic atrial fibrillation, Maximilian Guevara M.D. unspecified 01/16/2019 I48.20 Chronic atrial fibrillation, Nurse Visit cc unspecified 01/16/2019 Z79.01 category specialist (current) use of Maximilian Guevara M.D. anticoagulants 01/16/2019 Z79.01 alf (current) use of Nurse Visit cc anticoagulants 01/11/2019 I42.9 Cardiomyopathy, unspecified [facility] Pacer Schedule 01/11/2019 Z95.0 Presence of cardiac pacemaker Maximilian Guevara M.D. 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 2018 I48.2 Chronic atrial fibrillation Nurse Visit cc 2018 Z79.01 alf (current) use of Maximilian Guevara M.D. anticoagulants 2018 Z79.01 alf (current) use of Nurse Visit cc anticoagulants 11/09/2018 I48.0 Paroxysmal atrial fibrillation Maximilian Guevara M.D. 11/09/2018 I48.0 Paroxysmal atrial fibrillation Nurse Visit cc 11/09/2018 Z79.01 alf (current) use of Maximilian Guevara M.D. anticoagulants 11/09/2018 Z79.01 alf (current) use of Nurse Visit cc anticoagulants [...] atrial fibrillation Nurse Visit cc 10/23/2018 Z79.01 alf (current) use of Maximilian Guevara M.D. anticoagulants 10/23/2018 Z79.01 category specialist (current) use of Nurse Visit anticoagulants 10/12/2018 I49.5 Sick sinus syndrome Ica Pacer Schedule 10/12/2018 Z95.0 Presence of cardiac pacemaker Maximilian Guevara M.D. 10/12/2018 Z95.0 Presence of cardiac pacemaker Ica Pacer Schedule 10/09/2018 I48.0 Paroxysmal atrial fibrillation Maximilian Guevara M.D. 10/09/2018 I48.0 Paroxysmal atrial fibrillation Nurse Visit cc 10/09/2018 Z79.01 alf (current) use of Maximilian Guevara M.D. anticoagulants 10/09/2018 Z79.01 category specialist (current) use of Nurse Visit cc anticoagulants 09/25/2018 I48.2 Chronic atrial fibrillation Maximilian Guevara M.D. 09/25/2018 I48.2 Chronic atrial fibrillation Nurse Visit cc 09/25/2018 Z79.01 category specialist (current) use of Maximilian Guevara M.D. anticoagulants 09/25/2018 Z79.01 category specialist (current) use of Nurse Visit cc anticoagulants 09/21/2018 R94.31 Abnormal electrocardiogram [ECG] [EKG] Charles Harkins M.D., [facility], [facility] 09/21/2018 R07.9 Chest pain, unspecified Cassie Shortle, [employer] 09/21/2018 R07.9 Chest pain, unspecified Srini Burr, DO [facility] 09/21/2018 R07.9 Chest pain, unspecified Toy Jamison M.D., [facility], [facility] 09/21/2018 R07.9 Chest pain, unspecified Srini Burr, DO [facility] 09/21/2018 R11.0 Nausea Srini Burr, DO [facility] 09/21/2018 R42 Dizziness and giddiness Srini Burr, DO [facility] 09/20/2018 R07.9 Chest pain, unspecified Cassie Shortle, [employer] 09/18/2018 I48.2 Chronic atrial fibrillation Maximilian Guevara M.D. 09/18/2018 I48.2 Chronic atrial fibrillation Nurse Visit cc 09/18/2018 Z79.01 category specialist (current) use of Maximilian Guevara M.D. anticoagulants 09/18/2018 Z79.01 category specialist (current) use of Nurse Visit cc anticoagulants 09/07/2018 I48.2 Chronic atrial fibrillation Nurse Visit cc 09/07/2018 Z79.01 category specialist (current) use of Nurse Visit cc anticoagulants 08/31/2018 I48.2 Chronic atrial fibrillation Nurse Visit cc 08/31/2018 Z79.01 category specialist (current) use of Nurse Visit cc anticoagulants Plan of Treatment Future Appointment(s):03/22/2019 8:00 am - [place] [facility] at [facility]04/30/2019 9:30 am - [facility] Pacer Schedule at [facility] 10:00 am - Maximilian Guevara M.D. at [facility]04/09/2019 8: 30 am - Matilda Rhoades N.P. at [facility]03/15/2019 8:30 am - Nurse Visit cc at [facility]02/28/2019 - Maximilian Guevara M.D.I48.0 Paroxysmal atrial llwnpzrgirmdE31.9 Cardiomyopathy, unspecifiedNew Orders: Echocardiogram, Limited Study, Scheduled: 03/22/19Follow up:change Matilda 122 ov to 1 month from now [facility] ov 4 mZ95.0 Presence of cardiac pacemakerFollow up: pacer check in 2 mI25.10 Coronary atherosclerosis Functional Status Description No Information Available Mental Status Description No Information Available Referrals Description No Information Available
--- OUTSIDE RECORDS SUMMARY | 2019-03-22 14:36 | XMS REPORT | Continuity of Care Document ---
:1930 External Reference #:[id number] Author Name Maximilian Guevara M.D. (transmitted by agent of provider Grisel Ocampo) Address [address] [place] [id number] Care Team Providers Name Role Phone Avinash Saleem MD - Orthopaedic Care Team Information Guidance Secretary Surgery Iraj Corbin MD - Orthopaedic Care Team Information Guidance Secretary Surgery Edwardo Serna MD - Neurology Care Team Information Guidance Secretary [phone] Juan Manuel Mathis MD - Care Team Information Guidance Secretary [phone] Otolaryngology Timothy Peraza MD - Urology Care Team Information Guidance Secretary [phone] Qiana Oglesby M.D. - Family Medicine Care Team Information Guidance Secretary Problems Active Problems Provider Date Congestive heart [...] 08/30/2012 Chronic kidney disease stage 2 Duy ePck M.D.,FACP Onset: 03/26/2015 Peroneal tendinitis, right leg Avinash Saleem M.D. Onset: 06/12/2015 Sprain of ankle Jaylen Hernandez MD Onset: 06/16/2018 Social History Type Date Description Comments Sex Unknown Tobacco Use Start: Unknown Never Smoked Cigarettes ETOH Use Denies alcohol use Recreational Drug Use Denies Drug Use Tobacco Use Start: Unknown Patient has never smoked Smoking Status Reviewed: 02/13/19 Patient has never smoked Exercise Type/Frequency Does not exercise Allergies, Adverse Reactions, Alerts Active Allergies Reaction Severity Comments Date Lipitor leg cramps 2009 Erythromycin elevated HR, BP 11/26/2009 Codeine pt can not sleep. 04/27/2018 Inactive Allergies NKDA 03/04/2008 Medications Active Medications SIG Qnty Indications Ordering Provider Date Symbicort Inhale 1 puff 10.2units J44.9 Kirtsie Del Valle, 04/17/2018 By Mouth Two ELECTRONICS TEACHER 80-4.5mcg/Act Times Daily Aerosol Using A Spacer -- Rinse Mouth After Use R05 Pro Comfort Inhaler use pacer with 1units Juliannaofijordana Del Valle, 04/17/2018 Spacer Chamber Adult Symbicort ELECTRONICS TEACHER [facility] Polysaccharide Iron 1 every day PO 30caps Duy Torres 02/20/2018 Chloé Peck M.D.,FACP 484-67-6az-mcg-mg Capsules Fluticasone Propionate 2 sprays each nostril [...] D53.9 Iraj De Santiago, 08/27/2015 1000mcg/ML intramuscular l2gncdl M.DJamilah Solution Metoclopramide HCL Take 1 Tablet By 90tabs Lizett Austin MD 08/22/2015 10mg Mouth Three Times Tablets Daily as Needed Zofran take one tablet by 40tabs Qiana Oglesby MD 02/19/2015 4mg Tablets mouth every 6 hours as needed Amiodarone HCL 1/2 by mouth every 24tabs Maximilian Mendez 05/09/2014 200mg day Jose D Guevara Tablets Inspra 1/2 by mouth every 45tabs Maximilian Mendez 12/13/2013 25mg Tablets day Jose D Guevara Oxygen 1 l nc at bedtime 1units Maximilian Mendez 11/05/2013 [facility] Jose D Guevara Crestor 1 by mouth every 90tabs I25.10 Qiana Oglesby MD 09/20/2013 10mg Tablets evening Ventolin HFA 2 puffs by mouth four 30units 493.10 Duy Torres 06/28/2013 108(90Base) times a day as needed Jose D Peck,FACP mcg/Act Aerosol Aspirin 81 po qd Maximilian Mendez 02/19/2013 81mg Tablets Jose D Guevara DR Nitrostat one sl q5min up to 3 25tabs Maximilian Mendez 06/11/2011 0.4mg Tablets doses as needed Jose D Guevara Sub Protonix Take One Tablet By 90tabs Duy Torres 03/03/[address] Sabrina Once Daily Jose D Peck,[facility] Warfarin Sodium 1 tab x 5 days and 100tabs Matilda RomyJamilah Rhoades, 5mg 1/2 tab x 2 days [...] C 06/23/2018 Injection B-12 Injection Nurse Visit [place] 05/04/2018 Injection B-12 Injection Qiana Oglesby MD 03/13/2018 Injection B-12 Injection Nurse Visit A 02/16/2018 Injection B-12 Injection Nurse Visit A 01/05/2018 Injection B-12 Injection Nurse Visit A 11/28/2017 Injection B-12 Injection Nurse Visit A 10/17/2017 Injection B-12 Injection Nurse Visit A 09/05/2017 Injection B-12 Injection Duy Peck, 08/03/2017 Injection Jose D,[facility] B-12 Injection Duy Peck, 06/23/2017 Injection MKaren,[facility] B-12 Injection Nurse Visit A 05/03/2017 Injection B-12 Injection Duy Peck, 04/01/2017 Injection Jose D,[facility] B-12 Injection Nurse Visit A 03/01/2017 Injection B-12 Injection Nurse Visit A 01/28/2017 Injection B-12 Injection Duy Peck, 12/31/2016 Injection Jose D,[facility] B-12 Injection Nurse Visit A 11/26/2016 Injection B-12 Injection Nurse Visit A 10/22/2016 Injection B-12 Injection Nurse Visit A 09/21/2016 Injection B-12 Injection Nurse Visit A 08/20/2016 Injection B-12 Injection Nurse Visit A 07/19/2016 Injection B-12 Injection Nurse Visit A 06/18/2016 Injection B-12 Injection Nurse Visit A 05/17/2016 Injection B-12 Injection Duy Peck, 04/13/2016 Injection Jose D,[facility] B-12 Injection Nurse Visit A 03/08/2016 Injection B-12 Injection Nurse Visit A 02/06/2016 Injection B-12 Injection Duy Peck, 01/08/2016 Injection Jose D,[facility] B-12 Injection Nurse Visit A 12/11/2015 Injection [...] C 10/10/2014 Injection B-12 Injection Nurse Visit [place] 09/12/2014 Injection B-12 Injection Nurse Visit A 08/08/2014 Injection B-12 Injection Nurse Visit A 07/11/2014 Injection B-12 Injection Nurse Visit [place] 06/06/2014 Injection B-12 Injection Nurse Visit C 05/10/2014 Injection B-12 Injection Nurse Visit [place] 04/08/2014 Injection B-12 Injection Nurse Visit [place] 03/06/2014 Injection B-12 Injection Nurse Visit [place] 02/04/2014 Injection B-12 Injection Duy Peck, 01/02/2014 [facility] B[facility]12 Injection Duy Peck, 11/02/2013 Injection Jose D,FACP B-12 Injection Nurse Visit [place] 10/01/2013 Injection B-12 Injection Nurse Visit [place] 08/28/2013 Injection B-12 Injection Nurse Visit [place] 07/30/2013 Injection B-12 Injection Duy Peck, 06/28/2013 Injection M.D.,FACP B-12 Injection Duy Peck, 06/28/2013 Injection M.D.,FACP B-12 Injection Nurse Visit [place] 06/01/2013 Injection B-12 Injection Nurse Visit [place] 05/01/2013 Injection B-12 Injection Nurse Visit [place] 04/03/2013 Injection B-12 Injection Nurse Visit [place] 03/06/2013 Injection B-12 Injection Duy Peck, 01/30/2013 Injection M.D.,[facility] B-12 Injection Nurse Visit [place] 12/22/2012 Injection B-12 Injection Duy Peck, 11/23/2012 Injection M.D.,[facility] B-12 Injection Nurse Visit [place] 10/26/2012 Injection B-12 Injection Nurse Visit [place] 09/26/2012 Injection B-12 Injection Nurse Visit [place] 08/24/2012 Injection B-12 Injection Nurse Visit [place] 07/20/2012 Injection B-12 Injection Nurse Visit [place] 06/22/2012 Injection B-12 Injection Nurse Visit [place] 04/24/2012 Injection B-12 Injection Nurse Visit [place] 03/24/2012 Injection Depomedrol 80MG Avinash Saleem M.D. 03/01/2012 Injection B-12 Injection Nurse Visit [place] 02/28/2012 Injection B-12 Injection Nurse Visit [place] 01/24/2012 Injection B-12 Injection Nurse Visit [place] 12/23/2011 Injection Depomedrol 80MG Avinash Saleem M.D. 12/10/2011 Injection B-12 Injection Nurse Visit [place] 11/22/2011 Injection B-12 Injection Nurse Visit [place] 10/20/2011 Injection B-12 Injection Nurse Visit [place] 09/20/2011 Injection Depomedrol 80MG Avinash Saleem M.D. 08/19/2011 Injection B-12 Injection Nurse Visit [place] 08/18/2011 Injection B-12 Injection Nurse Visit [place] 07/19/2011 Injection B-12 Injection Nurse Visit [place] 06/17/2011 Injection Synvisc Or Synvisc-One Avinash Saleem M.D. 05/19/2011 Injection 1 MG Injection Synvisc Or Synvisc-One Jonnie Duarte, 05/13/2011 Injection 1 MG RPA-C Injection B-12 Injection Nurse Visit [place] 05/13/2011 Injection Synvisc Or Synvisc-Francesco Saleem M.D. 05/06/2011 Injection 1 MG Injection B-12 Injection Nurse Visit [place] 04/12/2011 Injection B-12 Injection Nurse Visit [place] 03/10/2011 Injection B-12 Injection Nurse Visit [place] 02/08/2011 Injection B-12 Injection Nurse Visit [place] 01/07/2011 Injection B-12 Injection Nurse Visit [place] 12/08/2010 Injection B-12 Injection Duy Peck, 11/03/2010 Injection Jose D,[facility] B-12 Injection Nurse Visit [place] 10/07/2010 Injection Depomedrol 80MG Avinash Saleem M.D. 09/24/2010 Injection B-12 Injection Nurse Visit [place] 09/07/2010 Injection B-12 Injection Nurse Visit [place] 08/05/2010 Injection B-12 Injection Nurse Visit [place] 07/06/2010 Injection B-12 Injection Nurse Visit [place] 06/05/2010 Injection B-12 Injection Nurse Visit [place] 05/08/2010 Injection B-12 Injection Duy Peck, 04/07/2010 Injection [facility] D,[facility] B-12 Injection Aidan Marte M.D. 03/04/2010 Injection B-12 Injection Nurse Visit [place] 01/28/2010 Injection B-12 Injection Nurse Visit [place] 12/29/2009 Injection B-12 Injection Duy Peck, 11/26/2009 Injection Jose D,FACP Immunizations CPT Code Status Date Vaccine Reaction Lot # [id number] Given 02/08/2019 Fluzone High Dose shot tolerated well, [id number] no immediate reaction 87108 Given 01/05/2018 Influenza Virus Vaccine, No immediate [id number] Quadrivalent, Split, reaction.jh Preservative Free 94781 Given 12/31/2016 Influenza Virus Vaccine, [id number] Quadrivalent, Split, Preservative Free 07550 Given 01/08/2016 Influ Virus Vaccine, [id number] Quadrivalent, Split Virus, [place] [address] Given 01/09/2015 Influenza Virus Vaccine, [id number] Quadrivalent, Split, Preservative Free 53840 Given 01/02/2014 Influenza Virus Vaccine, [id number] Quadrivalent, Split, Preservative Free 58577 Given 01/02/2014 Pneumococcal Conjugate [id number] Vaccine 13 Valent For Intramuscular Use 58421 Given 01/30/2013 Flu Vaccine Split Virus [id number] Preservative Free For Indiv 3Yr Older Q2038 Given 12/23/2011 Fluzone Vaccine [id number] 37791 Given 12/23/2011 Zoster (Zostavax) [id number] 50867 Given 11/05/2011 Tdap - [id number] Tetanus/Diptheria/Acellular Pertussis Q2038 Given 01/07/2011 Fluzone Vaccine [id number] 26001 Given 01/28/2010 Influenza Virus 3Yrs & Over [id number] 74452 Given 03/20/2009 Influenza Virus Vaccine, [id number] 5P Pandemic Formulation 53380 Given 03/20/2009 Administration Swine Flu Shot 43691 Given 04/04/2008 Pneumonia Vaccine Vital Signs Date Vital Result Comment 02/13/2019 9:58am Height 61 inches 5'1" Weight 160.38 lb Heart Rate 80 /min BP Systolic Sitting 116 mmHg Lue (regular cuff) BP Diastolic Sitting 70 mmHg Lue (regular cuff) BMI (Body Mass Index) 30.3 kg/m2 Ejection Fraction 40-45% 03/30/18 Echocardiogram 02/08/2019 11:23am Height 61 inches 5'1" Weight 158.25 lb Heart Rate 75 /min BP Systolic 110 mmHg BP Diastolic 63 mmHg Body Temperature 97.5 F O2 % BldC Oximetry 97 % BMI (Body Mass Index) 29.9 kg/m2 Results Test Acquired Date Facility Test Result H/L Range Note Laboratory test 02/13/2019 [facility] TSH 5.77 High 0.34-5.[address] (Thyroid mcIU/[place] [address] Stim Horm) [phone] Comp Metabolic 02/13/2019 [facility] Sodium 138 mmol/L Normal 135-[address] [place], [place] [id number] [phone] Potassium 4.5 mmol/L Normal 3.5-5.0 Chloride 107 [...] Egfr Non- 50.5 >60 Egfr 61.2 >60 1 Laboratory test 02/13/2019 [facility] Vitamin B12 934 pg/mL High 180-914 [address] [place] [address] [phone] CBC Auto Diff 09/20/2018 [facility] White Blood 8.9 Normal 3.5 -10.[address] Count 10^3/[place] [address] [phone] Red Blood Count 3.67 10^6/uL Low 4.18-5.48 [...] Blood Cells % 0.0 Laboratory test 09/20/2018 [facility] Lactic Acid 1.0 mmol/L Normal 0.5-2.[address] [place] [address] [phone] Inr/Protime 09/20/2018 [facility] Inr 2.01 High 0.82-1.[address] [place], [place] [id number] [phone] Laboratory test 09/20/2018 [facility] Partial 43.4 High 26.0- 38.[address] [place] [address] Time PTT [phone] B-Type Natriuretic Peptide BNP 151 pg/mL High <=100 Comp Metabolic 09/20/2018 [facility] Sodium 135 mmol/L Normal 135-145 Panel [address] [place] [address] [phone] Potassium 4.2 mmol/L Normal 3.5-5.0 Chloride 106 [...] Egfr Non- 61.7 >60 Egfr 74.6 >60 5 Laboratory test 09/20/2018 [facility] Magnesium 2.0 mg/dL Normal 1.9-2.7 finding [address] [place] [address] [phone] Creatine Kinase(CK) 51 U/L Normal 10-223 Troponin-I (TnI) 0.00 ng/mL <0.04 6 CKMB 09/20/2018 [facility] CKMB 1.3 ng/mL Normal 0.6-6.[address] ng/[place] [address] [phone] Laboratory test 09/20/2018 [facility] TSH 3.02 Normal 0.34- 5.[address] (Thyroid mcIU/[place] [address] Stim Horm) [phone] Urinalysis 09/20/2018 [facility] Urine Straw Profile [address] [place] [address] [phone] Urine Appearance Clear Urine Specific Onward 1.006 Low 1.010-1.030 Urine pH 5.0 Normal 5-9 Urine Urobilinogen Negative Negative Urine Ketones Negative Negative Urine Protein Negative Negative Urine Leukocytes Negative Negative Urine Blood 1+ Abnormal Negative Urine Nitrite Negative Negative Urine Bilirubin Negative Negative Urine Glucose Negative Negative Urine White Blood Cell Absent Absent Urine Red Blood Cell Trace(0-2/hpf) Absent Urine Bacteria Absent Absent 1 Because ethnic data is not always readily [...] 15-29 5 Kidney failure <15 (or dialysis) 2 Normal Range 180 to 914 Indeterminate Range 145 to 180 Deficient Range <145 3 [facility] Severe Sepsis and Septic Shock Management Bundle Measure requires all lactic acids initially measuring >2.0 mmol/L be repeated. 4 Standard intensity warfarin therapeutic range: 2.0-3.0 High intensity warfarin therapeutic range: 2.5-3.5 5 Because ethnic data is not always readily [...] 15-29 5 Kidney failure <15 (or dialysis) 6 Troponin-I testing on Plasma Separator Tubes (PST) has a known false positive rate of 0.20-0.40%. All positive troponins reflex immediately to secondary confirmatory testing. Using the [employer] Access Immunoassay systems, the 99th percentile upper reference limit was demonstrated to be < 0.03 ng/mL. Procedures Date Code Description Status 02/13/2019 83232 Cardioversion Completed 02/08/2019 81065 Admin Of Inj Completed 01/11/2019 97896 Pace Maker Eval W/Iterative Adjustment Multiple Lead Completed Pacemaker 01/11/2019 82559 Pace Maker Eval W/Iterative Adjustment Multiple Lead Completed Pacemaker 12/21/2018 71702 Admin Of Inj Completed 10/30/2018 22082 EKG Tracing & Interpretation Completed 10/27/2018 98877 Admin Of Inj Completed 10/12/2018 66415 Pace Maker Eval W/Iterative Adjustment Multiple Lead Completed Pacemaker 10/12/2018 75149 Pace Maker Eval W/Iterative Adjustment Multiple Lead Completed Pacemaker 09/21/2018 49296 ECHO Transthorasic Realtime 2D W Doppler & Color Flow Hosp Completed 09/21/2018 62341 Treadmill Interp/Report Only Completed 09/21/2018 11420 Stress Test Supervsn W/Out I/R Completed 09/21/2018 60464 EKG, Interpretation Only Completed 08/18/2018 18675 Admin Of Inj Completed Medical Devices Description No Information Available Encounters Type Date Location Provider Dx Diagnosis Office Visit 12/18/2018 [facility] Aury Nesha, 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: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 [facility] floyd Momin 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 Office Visit 10/30/2018 9:20a [facility] Maximilian Mendez I48.0 Paroxysmal atrial Jose D Guevara fibrillation R07.9 Chest pain, unspecified I42.9 Cardiomyopathy, unspecified I25.10 Athscl heart disease of [place] coronary artery w/o ang pctrs K21.9 Gastro-esophageal reflux disease without esophagitis Z95.0 Presence of cardiac pacemaker Office Visit 09/21/2018 2:24p [facility] Srini Arita R07.9 Chest pain , Of Merrill Burr, unspecified FACC R11.0 Nausea R42 Dizziness and giddiness Office Visit 09/21/2018 11:39a [facility] R07.9 Chest pain, Assoc,pc Shortle, ENGLISH COMPOSITION TEACHER unspecified Hospitalists Office Visit 09/20/2018 11:38a [facility] R07.9 Chest pain, Assoc,pc Shortle, ENGLISH COMPOSITION TEACHER unspecified Hospitalists Assessments Date Code Description Provider 02/13/2019 I48.0 Paroxysmal atrial fibrillation Maximilian Guevara M.D. 02/13/2019 I48.20 Chronic atrial fibrillation, Nurse Visit cc unspecified 02/13/2019 Z79.01 manager long term care (current) use of Maximilian Guevara M.D. anticoagulants 02/13/2019 I42.9 Cardiomyopathy, unspecified Maximilian Guevara M.D. 02/08/2019 Z00.01 Encounter for general adult medical Víctor Horton MD examination with abnormal findings 02/08/2019 I48.20 Chronic atrial fibrillation, Nurse Visit cc unspecified 02/08/2019 I48.20 Chronic atrial fibrillation, Víctor Horton MD unspecified 02/08/2019 Z79.01 manager long term care (current) use of Víctor Horton MD anticoagulants 02/08/2019 I42.9 Cardiomyopathy, unspecified Víctor Horton MD 02/08/2019 D64.9 Anemia, unspecified Víctor Horton MD 02/08/2019 Z23 Encounter for immunization Víctor Horton MD 02/02/2019 I48.20 Chronic atrial fibrillation, Nurse Visit cc unspecified 01/23/2019 I48.20 Chronic atrial fibrillation, Maximilian Guevara M.D. unspecified 01/23/2019 I48.20 Chronic atrial fibrillation, Nurse Visit cc unspecified 01/23/2019 Z79.01 manager long term care (current) use of Maximilian Guevara M.D. anticoagulants 01/23/2019 Z79.01 manager long term care (current) use of Nurse Visit cc anticoagulants 01/16/2019 I48.20 Chronic atrial fibrillation, Maximilian Guevara M.D. unspecified 01/16/2019 I48.20 Chronic atrial fibrillation, Nurse Visit cc unspecified 01/16/2019 Z79.01 custodial (current) use of Maximilian Guevara M.D. anticoagulants 01/16/2019 Z79.01 manager long term care (current) use of Nurse Visit cc anticoagulants 01/11/2019 I42.9 Cardiomyopathy, unspecified Ica Pacer Schedule 01/11/2019 Z95.0 Presence of cardiac pacemaker Maximilian Guevara M.D. 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 2018 I48.2 Chronic atrial fibrillation Nurse Visit cc 2018 Z79.01 custodial (current) use of Maximilian Guevara M.D. anticoagulants 2018 Z79.01 manager long term care (current) use of Nurse Visit cc anticoagulants 11/09/2018 I48.0 Paroxysmal atrial fibrillation Maximilian Guevara M.D. 11/09/2018 I48.0 Paroxysmal atrial fibrillation Nurse Visit cc 11/09/2018 Z79.01 manager long term care (current) use of Maximilian Guevara M.D. anticoagulants 11/09/2018 Z79.01 custodial (current) use of Nurse Visit cc anticoagulants [...] atrial fibrillation Nurse Visit cc 10/23/2018 Z79.01 custodial (current) use of Maximilian Guevara M.D. anticoagulants 10/23/2018 Z79.01 custodial (current) use of Nurse Visit cc anticoagulants 10/12/2018 I49.5 Sick sinus syndrome Ica Pacer Schedule 10/12/2018 Z95.0 Presence of cardiac pacemaker Maximilian Guevara M.D. 10/12/2018 Z95.0 Presence of cardiac pacemaker Ica Pacer Schedule 10/09/2018 I48.0 Paroxysmal atrial fibrillation Maximilian Guevara M.D. 10/09/2018 I48.0 Paroxysmal atrial fibrillation Nurse Visit cc 10/09/2018 Z79.01 manager long term care (current) use of Maximilian Guevara M.D. anticoagulants 10/09/2018 Z79.01 custodial (current) use of Nurse Visit cc anticoagulants 09/25/2018 I48.2 Chronic atrial fibrillation Maximilian Guevara M.D. 09/25/2018 I48.2 Chronic atrial fibrillation Nurse Visit cc 09/25/2018 Z79.01 manager long term care (current) use of Maximilian Guevara M.D. anticoagulants 09/25/2018 Z79.01 manager long term care (current) use of Nurse Visit cc anticoagulants 09/21/2018 R94.31 Abnormal electrocardiogram [ECG] [EKG] Charles Harkins M.D., [facility], [facility] 09/21/2018 R07.9 Chest pain, unspecified Cassie Shortle, ENGLISH COMPOSITION TEACHER 09/21/2018 R07.9 Chest pain, unspecified Srini Burr, DO [facility] 09/21/2018 R07.9 Chest pain, unspecified Toy Jamison M.D., [facility], [facility] 09/21/2018 R07.9 Chest pain, unspecified Srini Burr, DO [facility] 09/21/2018 R11.0 Nausea Srini Burr, DO [facility] 09/21/2018 R42 Dizziness and giddiness Srini Burr, DO [facility] 09/20/2018 R07.9 Chest pain, unspecified Cassie Shortle, ENGL[employer]POS[employer] TE[employer]ER 09/18/2018 I48.2 Chronic atrial fibrillation Maximilian Guevara M.D. 09/18/2018 I48.2 Chronic atrial fibrillation Nurse Visit cc 09/18/2018 Z79.01 manager long term care (current) use of Maximilian Guevara M.D. anticoagulants 09/18/2018 Z79.01 manager long term care (current) use of Nurse Visit cc anticoagulants 09/07/2018 I48.2 Chronic atrial fibrillation Nurse Visit cc 09/07/2018 Z79.01 custodial (current) use of Nurse Visit cc anticoagulants 08/31/2018 I48.2 Chronic atrial fibrillation Nurse Visit cc 08/31/2018 Z79.01 manager long term care (current) use of Nurse Visit cc anticoagulants 08/18/2018 I48.0 Paroxysmal atrial fibrillation Maximilian Guevara M.D. 08/18/2018 D51.9 Vitamin B12 deficiency anemia, Nurse Visit A unspecified 08/18/2018 Z79.01 manager long term care (current) use of Maximilian Guevara M.D. anticoagulants 08/18/2018 I48.0 Paroxysmal atrial fibrillation Nurse Visit cc 08/18/2018 Z79.01 custodial (current) use of Nurse Visit cc anticoagulants Plan of Treatment Future Appointment(s):02/20/2019 9:00 am - Nurse Visit cc at [facility]02/28/2019 11:40 am - Maximilian Guevara M.D. at [facility]05/2018 9:30 am - Matilda Rhoades NMalou at [facility]02/13/2019 - Maximilian Guevara M.D.I48.0 Paroxysmal atrial fibrillationNew Orders: Cardioversion, Scheduled: 02/16/19Z79.01 custodial (current) use of fzuyrmaasnfzuqS65.9 Cardiomyopathy, unspecified Functional Status Description No Information Available Mental Status Description No Information Available Referrals Description No Information Available
--- NOTE | 2019-03-22 14:43 | UC ---
Shoulder Pain HPI - HPI Summary HPI Summary: Patient is an 88-year-old male presenting with for complaints of left shoulder pain 8 days after he fell at home. Denies hitting his head. States his pain has gradually worsened instead of improving. Describes pain as constant aching that is worse with shoulder movement of any kind. Denies numbness and tingling. Denies radiating pain. Denies bruising and swelling. Denies SOB and chest pain. States he has been taking Tylenol for the pain. 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 - Onset/Duration: Sudden Onset, Lasting Weeks Timing: Constant Pain Intensity: 4 Pain Scale Used: 0-10 Numeric - Allergies/Home Medications Allergies/Adverse Reactions: Allergies Allergy/AdvReac Type Severity Reaction Status Date / Time ibuprofen Allergy Unknown Verified 03/22/19 14:45 Reaction Details atorvastatin AdvReac Muscle Ache Verified 03/22/19 14:45 codeine AdvReac Insomnia Verified 03/22/19 14:45 erythromycin base AdvReac Pain Verified 03/22/19 14:45 PMH/Surg Hx/FS Hx/Imm Hx Endocrine History: Dyslipidemia Cardiovascular History: Hypertension, Pacemaker/ICD GI/ History: Gastroesophageal Reflux Other History Of: Anticoagulant Therapy - on warfarin - Surgical History Surgical History: Yes Surgery Procedure, Year, and Place: lt knee 2012 pacemaker-2011. cholecystectomy 1994, hiatal hernia , CABG, Back Sx, Prostate Sx, Stents, Cardiac cath with bypass - Family History Known Family History: Positive: Cardiac Disease - In both brothers - Social History Occupation: Retired Lives: With Family Alcohol Use: None Substance Use Type: None Smoking Status (MU): Never Smoked Tobacco Have You Smoked in the Last Year: No - Immunization History Most Recent Influenza Vaccination: 2555-5947 season Most Recent Tetanus Shot: 2007 Most Recent Pneumonia Vaccination: 2008 Review of Systems All Other Systems Reviewed And Are Negative: Yes Constitutional: Positive: Negative Skin: Positive: Negative. Negative: Bruising Respiratory: Positive: Negative. Negative: Shortness Of Breath, Cough Cardiovascular: Positive: Negative. Negative: Palpitations, Chest Pain Neurovascular: Positive: Negative Musculoskeletal: Positive: Arthralgia - L shoulder aching, Decreased ROM - L shoulder. Negative: Edema Neurological: Negative: Paresthesia, Numbness Physical Exam Triage Information Reviewed: Yes Appearance: Well-Appearing, No Pain Distress, Well-Nourished Vital Signs: Vital Signs (72 hours) 03/22/19 14:39 Temperature 97.4 F Pulse Rate 60 Respiratory 16 Rate Blood Pressure 138/61 (mmHg) O2 Sat by Pulse 98 Oximetry Vital Signs Reviewed: Yes Eyes: Positive: Conjunctiva Clear ENT: Positive: Hearing grossly normal Neck exam: Normal Neck: Positive: Supple, Nontender Respiratory Exam: Normal Respiratory: Positive: Lungs clear, Normal breath sounds, No respiratory distress, No accessory muscle use. Negative: Crackles, Rhonchi, Stridor, Wheezing Cardiovascular Exam: Normal Cardiovascular: Positive: RRR, Pulses Normal - strong radial pulses b/l, Brisk Capillary Refill - <2 sec Musculoskeletal: Positive: Strength Intact - equal b/l elbow flexion and extension. 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 OSTEOPENIA. 2. OSTEOARTHRITIS. 3. SOFT TISSUE CALCIFICATION SUGGESTIVE OF A CALCIFIC TENDINOPATHY. 4. NO ACUTE OSSEOUS INJURY. THE DEGREE OF OSTEOPENIA MAY MAKE A NONDISPLACED FRACTURE RADIOGRAPHICALLY OCCULT. IF SYMPTOMS PERSIST, RECOMMEND REPEAT IMAGING. . L humerus Radiology Interpretation Completed By: Radiologist Summary of Radiographic Findings: IMPRESSION: 1. OSTEOPENIA. 2. OSTEOARTHRITIS. 3. SOFT TISSUE CALCIFICATION SUGGESTIVE OF A CALCIFIC TENDINOPATHY. 4. NO ACUTE OSSEOUS INJURY. THE DEGREE OF OSTEOPENIA MAY MAKE A NONDISPLACED FRACTURE RADIOGRAPHICALLY OCCULT. IF SYMPTOMS PERSIST, RECOMMEND REPEAT IMAGING. . Shoulder Course/Dx - Course Course Of Treatment: Discussed neg fx found on radiographs. Also discussed with patient osteopenia and that an occult fracture could go undetected. Instructed to follow up with orthopedics as soon as possible for further evaluation of worsening shoulder pain. Patient received sling to help support shoulder and instructed to continue with tylenol as directed and ice/heat for pain relief. Instructed to go to ED with any new or worsening symptoms. Patient and voiced understanding and agreed with treatment plan. - Differential Dx/Diagnosis Differential Diagnosis/HQI/PQRI: Fracture (Closed), Rotator Cuff Injury, Sprain , Strain Provider Diagnosis: Acute pain of left shoulder due to trauma Discharge ED - Sign-Out/Discharge Documenting (check all that apply): Patient Departure All imaging exams completed and their final reports reviewed: Yes - Discharge Plan Condition: Stable Disposition: HOME Patient Education Materials: Shoulder Pain (ED) Referrals: Iraj Corbin MD [Medical Doctor] - As Soon As Possible Víctor Horton MD [Primary Care Provider] - Additional Instructions: As discussed, no fractures were found on your xrays today. However, there may be a hidden fracture due to your weakened bones which could be causing your pain. It is suggested that your follow up with the orthopedic referral listed below as soon as possible for further evaluation. You may use the sling during the day while you are active to help support the shoulder and relieve pain. You may continue to take ibuprofen as directed for pain relief. It is important that you follow up with the referral listed below as soon as possible. Go to the emergency room if pain worsens, the arm or hand becomes cold and numb , or you are unable to move the arm. - Billing Disposition and Condition Condition: STABLE Disposition: Home
[2019-03-22 14:45] VITALS: BP 138/61
== END 2019-03-22 15:41 | disposition home or self-care (01) ==
LOC: UCEAST 14:29
DX: G89.11 Acute pain due to trauma (principal); M25.512 Pain in left shoulder; I10 Essential (primary) hypertension; M85.812 Other specified disorders of bone density and structure, left shoulder; M19.012 Primary osteoarthritis, left shoulder; M79.89 Other specified soft tissue disorders; Z95.0 Presence of cardiac pacemaker; Z79.01 Long term (current) use of anticoagulants; Z88.6 Allergy status to analgesic agent; Z88.5 Allergy status to narcotic agent; Z88.8 Allergy status to other drugs, medicaments and biological substances
CPT/HCPCS: 99213; G0463

== ENCOUNTER 2020-06-24 00:51 | Observation (INO) ==
[2020-06-24 01:53] LABS: ABS Basophils 0.1 10^3/ul (0-0.2); ABS Eosinophils 0.1 10^3/ul (0-0.6); ABS Lymphocytes 2.7 10^3/ul (1.0-4.8); ABS Monocytes 0.6 10^3/ul (0-0.8); ABS Neutrophils 4.2 10^3/ul (1.5-7.7); Eosinophil % 1.2 %; Hematocrit 35 % (42-52); Hemoglobin 11.7 g/dL (14.0-18.0); Lymphocyte % 35.8 %; Mean Corpuscular HGB Conc 34 g/dL (31-36); Mean Corpuscular Hemoglobin 32 pg (27-31); Mean Corpuscular Volume 95 fL (80-94); Mean Platelet Volume 8.2 fL (7.4-10.4); Platelet Count 275 10^3/uL (150-450); Red Blood Count 3.67 10^6 /uL (4.18-5.48); Red Cell Distribution Width 14 % (10-15); White Blood Count 7.7 10^3/uL (3.5-10.8)
[2020-06-24 01:59] LABS: INR 1.93 (0.82-1.09)
[2020-06-24 02:09] LABS: Albumin 3.8 g/dL (3.2-5.2); Albumin/Globulin Ratio 1.5 (1-3); BUN/Creatinine Ratio 22.9 (8-20); Calcium 9.2 mg/dL (8.6-10.3); EGFR African American 62.6 (>60); EGFR Non-African American 51.8 (>60); Globulin 2.6 g/dL (2-4); Potassium 3.7 mmol/L (3.5-5.0); Total Bilirubin 0.5 mg/dL (0.2-1.0); Total Protein 6.4 g/dL (6.4-8.9)
[2020-06-24 02:11] LABS: Troponin I 0.01 ng/mL (<0.03)
[2020-06-24] MEDS ORDERED: Nitro 2% OINT (Nitroglycerin) 1 INCH/PAK TOPICAL ONE (03:11)
[2020-06-24] MEDS ORDERED: Nitro 2% OINT (Nitroglycerin) 1 INCH/PAK ONE (03:15)
[2020-06-24] MEDS ORDERED: Albuterol HFA INHALER 8 gm MDI INH PRN (04:14)
[2020-06-24] MEDS ORDERED: Mometasone/Formoter 100/5 MDI INH SCH (09:00)
[2020-06-24] MEDS ORDERED: Cyanocobalamin INJ 1,000 MCG/ML VIAL 1 ML VIAL IM SCH (09:00)
[2020-06-24] MEDS ORDERED: CMCS: Epleronone 25 mg TAB (NF) PO SCH (09:00)
[2020-06-24] MEDS ORDERED: Aspirin EC 81 mg TAB.EC (enteric coated) PO SCH (09:00)
[2020-06-24] MEDS ORDERED: Regadenoson 0.4 MG/5 ML SYRINGE ONE (09:47)
[2020-06-24 11:49] VITALS: BP 133/53
[2020-06-24] MEDS ORDERED: CMCS: Rosuvastatin 10 mg TAB (NF) PO SCH (21:00)
== END 2020-06-24 13:52 | disposition home or self-care (01) ==
LOC: MEDTELE 00:51 → ED 00:51 → MEDTELE 04:55
PROVIDERS: ADMIT Internal Medicine; ATTEND Internal Medicine

== ENCOUNTER 2020-09-20 09:39 | Inpatient (IN) ==
[2020-09-20] MEDS ORDERED: Ondansetron 4 mg VIAL 2 MG/ML 2 ml VIAL IV PRN (10:18)
[2020-09-20 10:31] LABS: Hematocrit 37 % (42-52); Hemoglobin 12.7 g/dL (14.0-18.0); Mean Corpuscular Hemoglobin 33 pg (27-31); Mean Corpuscular Hgb Conc 34 g/dL (31-36); Mean Corpuscular Volume 97 fL (80-94); Mean Platelet Volume 8.1 fL (7.4-10.4); Platelet Count 295 10^3/uL (150-450); Red Blood Count 3.84 10^6 /uL (4.18-5.48); Red Cell Distribution Width 15 % (10-15); White Blood Count 9.7 10^3/uL (3.5-10.8)
[2020-09-20] MEDS: Ondansetron 4 mg VIAL 2 MG/ML 2 ml VIAL IV ONE (10:33)
[2020-09-20] MEDS: Lactated Ringers 500 ml BAG 500 ML IV ONE (10:33)
[2020-09-20 10:38] LABS: ABS Lymphocytes 0.5 10^3/ul (1.0-4.8); ABS Monocytes 0.4 10^3/ul (0-0.8); ABS Neutrophils 8.7 10^3/ul (1.5-7.7); Eosinophil % 0.4 %; Lymphocyte % 5.2 %
[2020-09-20 10:43] LABS: INR 3.8 (0.82-1.09)
[2020-09-20 10:48] LABS: ALT 11 U/L (7-52); AST 21 U/L (13-39); Albumin 3.5 g/dL (3.2-5.2); Albumin/Globulin Ratio 1.4 (1-3); Alkaline Phosphatase 99 U/L (35-149); Anion Gap 10 mmol/L (2-11); Blood Urea Nitrogen 21 mg/dL (6-24); CO2 Carbon Dioxide 21 mmol/L (22-32); Calcium 8.6 mg/dL (8.6-10.3); Chloride 103 mmol/L (101-111); EGFR African American 69.3 (>60); EGFR Non-African American 57.3 (>60); Globulin 2.5 g/dL (2-4); Glucose 101 mg/dL (70-100); Potassium 4.4 mmol/L (3.5-5.0); Sodium 134 mmol/L (135-145)
[2020-09-20 10:53] LABS: Troponin I 0.03 ng/mL (<0.03)
[2020-09-20] MEDS: Iodixanol (CONTRAST) 320 MG/ML 100 ML SDV IV ONE (11:18)
[2020-09-20] MEDS: cefTRIAXone 1 gm/50 mL NS BAG 1 GM/50 ML BAG IV ONE (12:02)
[2020-09-20] MEDS: Azithromycin 500 mg/250 ml NS 500 MG/250 ML BAG IVPB ONE (14:05)
[2020-09-20 14:42] LABS: Hematocrit 34 % (42-52); Hemoglobin 11.3 g/dL (14.0-18.0)
[2020-09-20 14:56] LABS: Rapid COVID-19 Molecular Undetected (Undetected)
[2020-09-20 14:58] LABS: Troponin I 0.04 ng/mL (<0.03)
[2020-09-20] MEDS: Pantoprazole VIAL 40 MG VIAL IV ONE (15:25)
[2020-09-20] MEDS: Ondansetron 4 mg VIAL 2 MG/ML 2 ml VIAL IV PRN (15:25)
[2020-09-20 16:08] LABS: Urine Appearance Clear; Urine Bilirubin Negative (Negative); Urine Blood 1+ (Negative); Urine Color Yellow; Urine Glucose Negative (Negative); Urine Ketones Negative (Negative); Urine Nitrite Negative (Negative); Urine Protein Negative (Negative); Urine Specific Gravity 1.039 (1.002-1.030); Urine Urobilinogen Positive (Negative)
[2020-09-20] MEDS ORDERED: Mometasone/Formoter 100/5 MDI INH PRN (16:33)
[2020-09-20 16:34] LABS: Urine Bacteria Absent (Absent); Urine Red Blood Cell 1+(3-5/hpf) (Absent); Urine White Blood Cell Trace(0-5/hpf) (Absent)
[2020-09-20] MEDS: NS 0.9% 500 ml BAG 500 ML IV ONE (17:03)
[2020-09-20 18:44] LABS: Troponin I 0.03 ng/mL (<0.03)
[2020-09-20] MEDS: Pantoprazole VIAL 40 MG VIAL IV SCH (20:52)
[2020-09-20 22:22] LABS: Hematocrit 32 % (42-52); Hemoglobin 10.7 g/dL (14.0-18.0)
[2020-09-21 06:46] LABS: INR 4.02 (0.82-1.09)
[2020-09-21 06:48] LABS: Hematocrit 31 % (42-52); Hemoglobin 10.4 g/dL (14.0-18.0); Mean Corpuscular Hemoglobin 32 pg (27-31); Mean Corpuscular Hgb Conc 33 g/dL (31-36); Mean Corpuscular Volume 98 fL (80-94); Mean Platelet Volume 7.8 fL (7.4-10.4); Platelet Count 257 10^3/uL (150-450); Red Blood Count 3.21 10^6 /uL (4.18-5.48); Red Cell Distribution Width 15 % (10-15); White Blood Count 23.8 10^3/uL (3.5-10.8)
[2020-09-21 07:00] LABS: Calcium 7.8 mg/dL (8.6-10.3); Potassium 4.6 mmol/L (3.5-5.0)
[2020-09-21] MEDS ORDERED: NS 0.9% 1000 ml BAG 1,000 ML IV SCH (07:00)
[2020-09-21 07:06] LABS: Creatinine, Serum 1.3 mg/dL (0.67-1.17); EGFR African American 63.2 (>60); EGFR Non-African American 52.2 (>60)
[2020-09-21] MEDS: CMCS - Epleronone 25 mg TAB (NF) PO SCH (07:29)
[2020-09-21] MEDS: Aspirin EC 81 mg TAB.EC (enteric coated) PO SCH (07:30)
[2020-09-21 07:31] LABS: ABS Lymphocytes 1.2 10^3/ul (1.0-4.8); ABS Monocytes 1.3 10^3/ul (0-0.8); ABS Neutrophils 21.2 10^3/ul (1.5-7.7); Eosinophil % 0.1 %; Lymphocyte % 5.2 %; RBC Morphology Normal (Normal)
[2020-09-21 08:59] LABS: C Reactive Protein 215.64 mg/L (<8.01)
[2020-09-21] MEDS ORDERED: Zosyn per Pharmacy NOTE FOLLOW UP SCH (09:00)
[2020-09-21] MEDS: NS 0.9% 1000 ml BAG 1,000 ML IV SCH (09:05)
[2020-09-21] MEDS: Piperacillin/Tazobac ADVAN 3.375 GM in NS 0.9% 100 ml BAG 100 ML IV ONE (09:05)
[2020-09-21] MEDS: Magnesium Hydroxide LIQ 30 ML UDC PO PRN (09:05)
[2020-09-21] MEDS ORDERED: cefTRIAXone 1 gm/50 mL NS BAG 1 GM/50 ML BAG IVPB SCH (11:00)
[2020-09-21] MEDS: ZOSYN 3.375 GM Q8H per EXTENDED INFUSION IV SCH (13:11)
[2020-09-21 14:20] LABS: Hematocrit 31 % (42-52); Hemoglobin 10.2 g/dL (14.0-18.0)
[2020-09-21 19:45] LABS: SARS Coronavirus-2 Undetected (Undetected)
[2020-09-22 05:18] LABS: INR 2.98 (0.82-1.09)
[2020-09-22 05:22] LABS: Calcium 7.4 mg/dL (8.6-10.3); Potassium 4.3 mmol/L (3.5-5.0)
[2020-09-22 05:27] LABS: Creatinine, Serum 1.25 mg/dL (0.67-1.17); EGFR African American 66.1 (>60); EGFR Non-African American 54.6 (>60)
[2020-09-22 09:14] LABS: ABS Eosinophils 0.1 10^3/ul (0-0.6); ABS Lymphocytes 1.3 10^3/ul (1.0-4.8); ABS Monocytes 0.7 10^3/ul (0-0.8); ABS Neutrophils 17.2 10^3/ul (1.5-7.7); Eosinophil % 0.5 %; Hematocrit 29 % (42-52); Hemoglobin 9.5 g/dL (14.0-18.0); Mean Corpuscular Hemoglobin 32 pg (27-31); Mean Corpuscular Hgb Conc 33 g/dL (31-36); Mean Corpuscular Volume 99 fL (80-94); Mean Platelet Volume 8.1 fL (7.4-10.4); Platelet Count 229 10^3/uL (150-450); Red Blood Count 2.95 10^6 /uL (4.18-5.48); Red Cell Distribution Width 15 % (10-15); White Blood Count 19.3 10^3/uL (3.5-10.8)
[2020-09-22] MEDS: Calcium Gluconate 2 GM in NS 0.9% 100 ml BAG 100 ML IV ONE (09:55)
[2020-09-23 05:42] LABS: ABS Eosinophils 0.2 10^3/ul (0-0.6); ABS Lymphocytes 1.5 10^3/ul (1.0-4.8); ABS Monocytes 0.6 10^3/ul (0-0.8); ABS Neutrophils 11.9 10^3/ul (1.5-7.7); Eosinophil % 1.3 %; Hematocrit 28 % (42-52); Hemoglobin 9.4 g/dL (14.0-18.0); Lymphocyte % 10.6 %; Mean Corpuscular Hemoglobin 33 pg (27-31); Mean Corpuscular Hgb Conc 34 g/dL (31-36); Mean Corpuscular Volume 97 fL (80-94); Mean Platelet Volume 7.7 fL (7.4-10.4); Platelet Count 254 10^3/uL (150-450); Red Blood Count 2.88 10^6 /uL (4.18-5.48); Red Cell Distribution Width 15 % (10-15); White Blood Count 14.2 10^3/uL (3.5-10.8)
[2020-09-23 05:58] LABS: Albumin 2.5 g/dL (3.2-5.2); Albumin/Globulin Ratio 1.1 (1-3); C Reactive Protein 189.16 mg/L (<8.01); Calcium 7.7 mg/dL (8.6-10.3); Creatinine, Serum 1.03 mg/dL (0.67-1.17); EGFR African American 82.7 (>60); EGFR Non-African American 68.3 (>60); Globulin 2.2 g/dL (2-4); Magnesium 2.3 mg/dL (1.9-2.7); Total Bilirubin 0.6 mg/dL (0.2-1.0); Total Protein 4.7 g/dL (6.4-8.9)
[2020-09-23 07:55] LABS: INR 2.6 (0.82-1.09)
[2020-09-24 06:20] LABS: Hematocrit 31 % (42-52); Hemoglobin 10.2 g/dL (14.0-18.0); Mean Corpuscular Hemoglobin 32 pg (27-31); Mean Corpuscular Hgb Conc 33 g/dL (31-36); Mean Corpuscular Volume 97 fL (80-94); Mean Platelet Volume 7.5 fL (7.4-10.4); Platelet Count 326 10^3/uL (150-450); Red Blood Count 3.17 10^6 /uL (4.18-5.48); Red Cell Distribution Width 15 % (10-15); White Blood Count 12.3 10^3/uL (3.5-10.8)
[2020-09-24 06:23] LABS: Calcium 7.8 mg/dL (8.6-10.3); Creatinine, Serum 0.98 mg/dL (0.67-1.17); EGFR African American 87.5 (>60); EGFR Non-African American 72.3 (>60); Potassium 3.8 mmol/L (3.5-5.0)
[2020-09-24 06:29] LABS: INR 2.66 (0.82-1.09)
[2020-09-24 07:43] LABS: ABS Basophils 0.1 10^3/ul (0-0.2); ABS Eosinophils 0.1 10^3/ul (0-0.6); ABS Lymphocytes 1.7 10^3/ul (1.0-4.8); ABS Monocytes 0.7 10^3/ul (0-0.8); ABS Neutrophils 9.8 10^3/ul (1.5-7.7); Eosinophil % 1.2 %; Lymphocyte % 13.6 %
[2020-09-24] MEDS: Warfarin DAILY REMINDER **NOTE FOLLOW UP SCH (17:07)
[2020-09-25] MEDS: Nystatin TOP POWDER 15 GM BTL TOPICAL SCH (00:02)
[2020-09-25 06:31] LABS: INR 2.34 (0.82-1.09)
[2020-09-26] MEDS: ZOSYN 3.375 GM Q8H per EXTENDED INFUSION IV SCH (03:34)
[2020-09-26 06:40] LABS: Hematocrit 30 % (42-52); Hemoglobin 10.2 g/dL (14.0-18.0); Mean Corpuscular Hemoglobin 33 pg (27-31); Mean Corpuscular Hgb Conc 34 g/dL (31-36); Mean Corpuscular Volume 96 fL (80-94); Mean Platelet Volume 7.2 fL (7.4-10.4); Platelet Count 388 10^3/uL (150-450); Red Blood Count 3.12 10^6 /uL (4.18-5.48); Red Cell Distribution Width 14 % (10-15); White Blood Count 9.4 10^3/uL (3.5-10.8)
[2020-09-26 06:51] LABS: INR 2.28 (0.82-1.09)
[2020-09-26 06:55] LABS: C Reactive Protein 29.32 mg/L (<8.01); Creatinine, Serum 0.9 mg/dL (0.67-1.17); EGFR African American 96.6 (>60); EGFR Non-African American 79.8 (>60)
[2020-09-26 07:17] LABS: ABS Eosinophils 0.2 10^3/ul (0-0.6); ABS Neutrophils 6.3 10^3/ul (1.5-7.7); Lymphocyte % 20.9 %
[2020-09-26] MEDS: Albuterol HFA INHALER 8 gm MDI INH PRN (07:51)
[2020-09-26] MEDS: Al Hydrox/Mg Hydrox/Simet LIQ 30 ML UDC PO PRN (10:28)
[2020-09-27 05:54] LABS: INR 2.33 (0.82-1.09)
[2020-09-28 06:35] LABS: Hematocrit 29 % (42-52); Hemoglobin 10.1 g/dL (14.0-18.0); Mean Corpuscular Hemoglobin 33 pg (27-31); Mean Corpuscular Hgb Conc 35 g/dL (31-36); Mean Corpuscular Volume 96 fL (80-94); Mean Platelet Volume 7.1 fL (7.4-10.4); Platelet Count 466 10^3/uL (150-450); Red Blood Count 3.07 10^6 /uL (4.18-5.48); Red Cell Distribution Width 14 % (10-15); White Blood Count 7.8 10^3/uL (3.5-10.8)
[2020-09-28 06:38] LABS: INR 2.43 (0.82-1.09)
[2020-09-28 06:50] LABS: Calcium 8.1 mg/dL (8.6-10.3); Creatinine, Serum 0.87 mg/dL (0.67-1.17); EGFR African American 100.4 (>60); Potassium 4.2 mmol/L (3.5-5.0)
[2020-09-29 05:42] LABS: INR 2.77 (0.82-1.09)
[2020-09-30 05:48] LABS: INR 3.79 (0.82-1.09)
[2020-10-01 07:41] LABS: INR 3.08 (0.86-1.15)
[2020-10-01 09:49] LABS: Rapid COVID-19 Molecular Undetected (Undetected)
[2020-10-01 11:32] VITALS: BP 105/45
== END 2020-10-01 14:45 ==
LOC: ED 09:39 → MED 14:44
PROVIDERS: ADMIT Internal Medicine; ATTEND Student in an Organized Health Care Education/Training Program

== ENCOUNTER 2020-11-02 21:39 | Observation (INO) ==
[2020-11-02] MEDS ORDERED: Morphine 4 MG/ML VIAL (1 ml) IV ONE (21:59)
[2020-11-02 22:38] LABS: ABS Basophils 0.1 10^3/ul (0-0.2); ABS Eosinophils 0.2 10^3/ul (0-0.6); ABS Lymphocytes 2.1 10^3/ul (1.0-4.8); ABS Monocytes 0.8 10^3/ul (0-0.8); ABS Neutrophils 5.7 10^3/ul (1.5-7.7); Eosinophil % 1.8 %; Hematocrit 36 % (42-52); Hemoglobin 11.9 g/dL (14.0-18.0); Lymphocyte % 23.8 %; Mean Corpuscular HGB Conc 33 g/dL (31-36); Mean Corpuscular Hemoglobin 31 pg (27-31); Mean Corpuscular Volume 95 fL (80-94); Platelet Count 324 10^3/uL (150-450); Red Blood Count 3.83 10^6 /uL (4.18-5.48); Red Cell Distribution Width 14 % (10-15); White Blood Count 8.9 10^3/uL (3.5-10.8)
[2020-11-02 22:44] LABS: INR 3.23 (0.86-1.15)
[2020-11-02 22:55] LABS: Albumin 3.6 g/dL (3.2-5.2); Albumin/Globulin Ratio 1.4 (1-3); Calcium 8.5 mg/dL (8.6-10.3); EGFR African American 66.1 (>60); EGFR Non-African American 54.6 (>60); Globulin 2.6 g/dL (2-4); Potassium 4.3 mmol/L (3.5-5.0); Total Bilirubin 0.5 mg/dL (0.2-1.0); Total Protein 6.2 g/dL (6.4-8.9)
[2020-11-02 22:58] LABS: Troponin I 0.02 ng/mL (<0.03)
[2020-11-03] MEDS ORDERED: Mometasone/Formoter 100/5 MDI INH PRN (04:20)
[2020-11-03] MEDS ORDERED: Albuterol HFA INHALER 8 gm MDI INH PRN (04:20)
[2020-11-03] MEDS ORDERED: Nystatin TOP POWDER 15 GM BTL TOPICAL PRN (04:20)
[2020-11-03] MEDS ORDERED: Isosorbide Mononit ER 30mg TAB PO ONE (04:59)
[2020-11-03 08:20] LABS: INR 3.22 (0.86-1.15)
[2020-11-03] MEDS ORDERED: Aspirin EC 81 mg TAB.EC (enteric coated) PO SCH (09:00)
[2020-11-03] MEDS ORDERED: CMCS:Epleronone 25 mg TAB (NF) PO SCH (09:00)
[2020-11-03] MEDS ORDERED: Aminophylline 25 MG/ML VIAL ONE (10:14)
[2020-11-03] MEDS ORDERED: Regadenoson 0.4 MG/5 ML SYRINGE ONE (10:14)
[2020-11-03 16:06] VITALS: BP 92/40
[2020-11-03] MEDS ORDERED: Warfarin DAILY REMINDER **NOTE FOLLOW UP SCH (17:00)
== END 2020-11-03 17:55 | disposition home or self-care (01) ==
LOC: ED 21:39 → MEDTELE 11-03 04:12 → INTOOBSV 11-03 04:12 → MEDTELE 11-03 07:43
PROVIDERS: ADMIT Internal Medicine; ATTEND Internal Medicine

== ENCOUNTER 2021-09-02 21:18 | Inpatient (IN) ==
[2021-09-02] MEDS ORDERED: Albuterol HFA INHALER 8 gm MDI INH ONE (21:53)
[2021-09-02] MEDS ORDERED: Albuterol/Ipratropium NEB.SOL (2.5/0.5 MG) 3 ML NEB.SOLN INH ONE ×3 (22:02→22:03)
[2021-09-02] MEDS ORDERED: methylPREDNISolone SOD SUCC 125 mg 2 ML VIAL IV ONE (22:02)
[2021-09-02] MEDS ORDERED: Furosemide 40 mg/4 ml IV VIAL IV ONE (22:22)
[2021-09-02 22:23] LABS: PCO2 Arterial 53 mmHg (35-45); PO2 Arterial 108 mmHg (80-100)
[2021-09-02] MEDS ORDERED: cefTRIAXone 1 gm/50 mL D5W 1 GM/50 ML BAG IV ONE (22:23)
[2021-09-02 22:24] LABS: INR 4.09 (0.86-1.15)
[2021-09-02] MEDS ORDERED: DOXYcycline 100 MG in NS 0.9% 250 ml 250 ML IVPB ONE (22:24)
[2021-09-02 22:32] LABS: ABS Basophils 0.1 10^3/ul (0-0.2); ABS Eosinophils 0.1 10^3/ul (0-0.6); ABS Lymphocytes 4.9 10^3/ul (1.0-4.8); ABS Monocytes 1.1 10^3/ul (0-0.8); ABS Neutrophils 10.6 10^3/ul (1.5-7.7); Eosinophil % 0.3 %; Hematocrit 33 % (42-52); Hemoglobin 10.6 g/dL (14.0-18.0); Mean Corpuscular HGB Conc 32 g/dL (31-36); Mean Corpuscular Hemoglobin 30 pg (27-31); Mean Corpuscular Volume 94 fL (80-94); Mean Platelet Volume 7.7 fL (7.4-10.4); Nucleated Red Blood Cells % 0.1; Platelet Count 439 10^3/uL (150-450); Red Blood Count 3.55 10^6 /uL (4.18-5.48); Red Cell Distribution Width 16 % (10-15); White Blood Count 16.8 10^3/uL (3.5-10.8)
[2021-09-02 22:48] LABS: Albumin 3.7 g/dL (3.2-5.2); Calcium 8.4 mg/dL (8.6-10.3); Potassium 4.7 mmol/L (3.5-5.0); Total Bilirubin 0.5 mg/dL (0.2-1.0)
[2021-09-02 22:54] LABS: Albumin/Globulin Ratio 1.5 (1-3); Globulin 2.5 g/dL (2-4); Total Protein 6.2 g/dL (6.4-8.9); eGFR CKD-EPI 66.7 (>60)
[2021-09-02] MEDS ORDERED: Albuterol 2.5mg/3 ml (0.083%) NEB.SOLN INH PRN (23:11)
[2021-09-02] MEDS ORDERED: Ondansetron 4 mg VIAL 2 MG/ML 2 ml VIAL IV PRN (23:11)
[2021-09-02 23:38] LABS: PCO2 Arterial 34 mmHg (35-45); PO2 Arterial 108 mmHg (80-100)
[2021-09-02] MEDS ORDERED: DOXYcycline 100 MG in NS 0.9% 250 ml 250 ML IVPB SCH (23:45)
[2021-09-03] MEDS ORDERED: Fluticasone NASAL SPRAY 50MCG 16 gm SPRAY BTL INTRANASAL PRN
[2021-09-03 00:07] LABS: High Sensitivity Troponin 1 Hr 30 pg/mL (<20)
[2021-09-03 00:31] LABS: Urine Appearance Clear; Urine Bilirubin Negative (Negative); Urine Blood 1+ (Negative); Urine Color Straw; Urine Glucose Negative (Negative); Urine Ketones Negative (Negative); Urine Nitrite Negative (Negative); Urine Protein Negative (Negative); Urine Specific Gravity 1.006 (1.002-1.030); Urine Urobilinogen Negative (Negative)
[2021-09-03 00:48] LABS: Urine Bacteria Absent (Absent); Urine Red Blood Cell Trace(0-2/hpf) (Absent); Urine White Blood Cell Trace(0-5/hpf) (Absent)
[2021-09-03 06:58] LABS: ABS Lymphocytes 0.7 10^3/ul (1.0-4.8); ABS Monocytes 0.1 10^3/ul (0-0.8); ABS Neutrophils 6.7 10^3/ul (1.5-7.7); Hematocrit 27 % (42-52); Hemoglobin 9.1 g/dL (14.0-18.0); Lymphocyte % 8.7 %; Mean Corpuscular HGB Conc 33 g/dL (31-36); Mean Corpuscular Hemoglobin 31 pg (27-31); Mean Corpuscular Volume 93 fL (80-94); Mean Platelet Volume 7.6 fL (7.4-10.4); Platelet Count 330 10^3/uL (150-450); Red Blood Count 2.94 10^6 /uL (4.18-5.48); Red Cell Distribution Width 16 % (10-15); White Blood Count 7.6 10^3/uL (3.5-10.8)
[2021-09-03 07:56] LABS: ALT 9 U/L (7-52); Albumin 2.3 g/dL (3.2-5.2); Albumin/Globulin Ratio 1.4 (1-3); Alkaline Phosphatase 49 U/L (35-149); Blood Urea Nitrogen 14 mg/dL (6-24); CO2 Carbon Dioxide 18 mmol/L (22-32); Chloride 109 mmol/L (101-111); Globulin 1.7 g/dL (2-4); Glucose 98 mg/dL (70-100); Sodium 135 mmol/L (135-145); eGFR CKD-EPI 89.4 (>60)
[2021-09-03] MEDS: Albuterol/Ipratropium NEB.SOL (2.5/0.5 MG) 3 ML NEB.SOLN INH SCH ×2 (07:57→12:53)
[2021-09-03] MEDS ORDERED: Furosemide 40 mg/4 ml IV VIAL IV SLOW PU SCH (08:00)
[2021-09-03 08:19] LABS: Calcium 5.7 mg/dL (8.6-10.3)
[2021-09-03 08:20] LABS: Anion Gap 8 mmol/L (2-11)
[2021-09-03] MEDS: Aspirin EC 81 mg TAB.EC (enteric coated) PO SCH (09:58)
[2021-09-03] MEDS: CMCS:Epleronone 25 mg TAB (NF) PO SCH (09:59)
[2021-09-03] MEDS: Mometasone/Formoter 100/5 MDI INH SCH ×2 (12:21→19:26)
[2021-09-03 12:35] LABS: Hematocrit 33 % (42-52); Hemoglobin 10.8 g/dL (14.0-18.0); Mean Corpuscular HGB Conc 33 g/dL (31-36); Mean Corpuscular Hemoglobin 30 pg (27-31); Mean Corpuscular Volume 93 fL (80-94); Mean Platelet Volume 7.4 fL (7.4-10.4); Platelet Count 338 10^3/uL (150-450); Red Blood Count 3.58 10^6 /uL (4.18-5.48); Red Cell Distribution Width 16 % (10-15); White Blood Count 6.5 10^3/uL (3.5-10.8)
[2021-09-03] MEDS ORDERED: Albuterol/Ipratropium NEB.SOL (2.5/0.5 MG) 3 ML NEB.SOLN INH PRN (12:53)
[2021-09-03] MEDS: Albuterol HFA INHALER 8 gm MDI INH SCH ×3 (12:53→19:26)
[2021-09-03 13:19] LABS: Calcium 9.1 mg/dL (8.6-10.3); Potassium 4.2 mmol/L (3.5-5.0); eGFR CKD-EPI 70.7 (>60)
[2021-09-03] MEDS: DOXYcycline 100 MG in NS 0.9% 250 ml 250 ML IVPB SCH (14:15)
[2021-09-03] MEDS ORDERED: Perflutren Lipid Microsphere 3 ML VIAL ONE (14:20)
[2021-09-03] MEDS ORDERED: Polyethylene Glycol 3350 17 GM PACKET PO PRN (20:32)
[2021-09-03] MEDS ORDERED: Magnesium Hydroxide LIQ 30 ML UDC PO PRN (20:32)
[2021-09-03] MEDS ORDERED: Senna TAB 8.6 mg TAB PO PRN (20:32)
[2021-09-03] MEDS ORDERED: Senna TAB 8.6 mg TAB ONE (20:42)
[2021-09-03] MEDS: cefTRIAXone 1 gm/50 mL D5W 1 GM/50 ML BAG IV SCH (20:46)
[2021-09-04] MEDS: DOXYcycline 100 MG in NS 0.9% 250 ml 250 ML IVPB SCH ×2 (03:52→11:32)
[2021-09-04 05:36] LABS: ABS Lymphocytes 0.6 10^3/ul (1.0-4.8); ABS Monocytes 0.8 10^3/ul (0-0.8); ABS Neutrophils 9.2 10^3/ul (1.5-7.7); Hematocrit 28 % (42-52); Mean Corpuscular HGB Conc 32 g/dL (31-36); Mean Corpuscular Hemoglobin 30 pg (27-31); Mean Corpuscular Volume 92 fL (80-94); Platelet Count 326 10^3/uL (150-450); Red Blood Count 3.05 10^6 /uL (4.18-5.48); Red Cell Distribution Width 16 % (10-15); White Blood Count 10.6 10^3/uL (3.5-10.8)
[2021-09-04 05:43] LABS: INR 3.28 (0.86-1.15)
[2021-09-04 05:59] LABS: Blood Urea Nitrogen 32 mg/dL (6-24); CO2 Carbon Dioxide 27 mmol/L (22-32); Calcium 8.6 mg/dL (8.6-10.3); Chloride 96 mmol/L (101-111); Glucose 139 mg/dL (70-100); Sodium 129 mmol/L (135-145)
[2021-09-04 06:14] LABS: Anion Gap 6 mmol/L (2-11)
[2021-09-04] MEDS: CMCS:Epleronone 25 mg TAB (NF) PO SCH (07:33)
[2021-09-04] MEDS: Aspirin EC 81 mg TAB.EC (enteric coated) PO SCH (07:33)
[2021-09-04] MEDS: Mometasone/Formoter 100/5 MDI INH SCH ×2 (07:38→19:06)
[2021-09-04 07:39] LABS: Potassium, Whole Blood 4.7 mmol/L (3.4-4.5)
[2021-09-04] MEDS: Albuterol HFA INHALER 8 gm MDI INH SCH (07:39)
[2021-09-04] MEDS ORDERED: Albuterol HFA INHALER 8 gm MDI INH PRN (08:06)
[2021-09-04 09:29] LABS: Uric Acid 4.2 mg/dL (4.4-7.6)
[2021-09-04] MEDS: cefTRIAXone 1 gm/50 mL D5W 1 GM/50 ML BAG IV SCH (21:16)
[2021-09-05] MEDS: DOXYcycline 100 MG in NS 0.9% 250 ml 250 ML IVPB SCH ×2 (00:49→13:13)
[2021-09-05 05:12] LABS: ABS Lymphocytes 0.9 10^3/ul (1.0-4.8); ABS Monocytes 0.8 10^3/ul (0-0.8); ABS Neutrophils 10.8 10^3/ul (1.5-7.7); Hematocrit 26 % (42-52); Hemoglobin 8.3 g/dL (14.0-18.0); Lymphocyte % 7.4 %; Mean Corpuscular HGB Conc 33 g/dL (31-36); Mean Corpuscular Hemoglobin 30 pg (27-31); Mean Corpuscular Volume 91 fL (80-94); Mean Platelet Volume 7.7 fL (7.4-10.4); Platelet Count 291 10^3/uL (150-450); Red Cell Distribution Width 16 % (10-15); White Blood Count 12.5 10^3/uL (3.5-10.8)
[2021-09-05 05:30] LABS: INR 2.69 (0.86-1.15)
[2021-09-05 05:35] LABS: Calcium 8.4 mg/dL (8.6-10.3); Magnesium 1.8 mg/dL (1.9-2.7); Potassium 4.2 mmol/L (3.5-5.0); eGFR CKD-EPI 81.1 (>60)
[2021-09-05] MEDS ORDERED: Magnesium Sulfate 2 gm BAG 2 GM/50 ML BAG IVPB ONE (05:36)
[2021-09-05 06:01] LABS: Phosphorus 3.8 mg/dL (2.5-5.0)
[2021-09-05] MEDS: Aspirin EC 81 mg TAB.EC (enteric coated) PO SCH (07:43)
[2021-09-05] MEDS: CMCS:Epleronone 25 mg TAB (NF) PO SCH (07:44)
[2021-09-05] MEDS: Magnesium Sulfate IV 1GM/100ML 1 GM/100 ML BAG IV ONE ×2 (08:08→08:11)
[2021-09-05] MEDS: Mometasone/Formoter 100/5 MDI INH SCH (08:27)
[2021-09-05 14:35] VITALS: BP 108/53
== END 2021-09-05 15:00 | disposition home health service (06) | DRG 189 ==
LOC: ED 21:18 → EDHOLD 23:12 → ICU 09-03 07:47
PROVIDERS: ADMIT Surgery Surgical Critical Care; ATTEND Surgery Surgical Critical Care

== ENCOUNTER 2021-09-29 21:36 | Inpatient (IN) ==
[2021-09-29 22:10] LABS: ABS Eosinophils 0.1 10^3/ul (0-0.6); ABS Neutrophils 6.9 10^3/ul (1.5-7.7); Eosinophil % 0.8 %; Hematocrit 31 % (42-52); Hemoglobin 9.8 g/dL (14.0-18.0); Lymphocyte % 19.9 %; Mean Corpuscular HGB Conc 32 g/dL (31-36); Mean Corpuscular Hemoglobin 29 pg (27-31); Mean Corpuscular Volume 90 fL (80-94); Mean Platelet Volume 7.5 fL (7.4-10.4); Nucleated Red Blood Cells % 0.1; Platelet Count 436 10^3/uL (150-450); Red Blood Count 3.37 10^6 /uL (4.18-5.48); Red Cell Distribution Width 16 % (10-15)
[2021-09-29 22:21] LABS: INR 3.44 (0.86-1.15)
[2021-09-29 22:34] LABS: Albumin 3.6 g/dL (3.2-5.2); Albumin/Globulin Ratio 1.6 (1-3); Calcium 8.5 mg/dL (8.6-10.3); Globulin 2.2 g/dL (2-4); Potassium 4.8 mmol/L (3.5-5.0); Total Bilirubin 0.7 mg/dL (0.2-1.0); Total Protein 5.8 g/dL (6.4-8.9); eGFR CKD-EPI 68.3 (>60)
[2021-09-29 23:40] LABS: High Sensitivity Troponin 1 Hr 32 pg/mL (<20)
[2021-09-30] MEDS ORDERED: Furosemide 40 mg/4 ml IV VIAL IV ONE (01:35)
[2021-09-30] MEDS ORDERED: Nitro 2% OINT (Nitroglycerin) 1 INCH/PAK TOPICAL ONE (01:38)
[2021-09-30] MEDS ORDERED: Warfarin per PHARMACY **NOTE FOLLOW UP SCH (03:00)
[2021-09-30 05:56] LABS: ABS Lymphocytes 1.2 10^3/ul (1.0-4.8); ABS Neutrophils 6.9 10^3/ul (1.5-7.7); Eosinophil % 0.2 %; Hematocrit 27 % (42-52); Hemoglobin 8.8 g/dL (14.0-18.0); Lymphocyte % 12.8 %; Mean Corpuscular HGB Conc 33 g/dL (31-36); Mean Corpuscular Hemoglobin 29 pg (27-31); Mean Corpuscular Volume 90 fL (80-94); Mean Platelet Volume 7.4 fL (7.4-10.4); Platelet Count 367 10^3/uL (150-450); Red Blood Count 3.01 10^6 /uL (4.18-5.48); Red Cell Distribution Width 16 % (10-15); White Blood Count 9.2 10^3/uL (3.5-10.8)
[2021-09-30 05:59] LABS: TSH Ultra Thyroid Stim Horm 5.53 mcIU/mL (0.34-5.60)
[2021-09-30 06:05] LABS: Ferritin 18.5 ng/mL (24-336)
[2021-09-30 06:24] LABS: Urine Creatinine Concentration 7.77 mg/dL
[2021-09-30 06:44] LABS: Blood Urea Nitrogen 20 mg/dL (6-24); CO2 Carbon Dioxide 24 mmol/L (22-32); Calcium 7.5 mg/dL (8.6-10.3); Chloride 97 mmol/L (101-111); Glucose 79 mg/dL (70-100); Magnesium 1.7 mg/dL (1.9-2.7); Sodium 128 mmol/L (135-145)
[2021-09-30 07:04] LABS: Urine Osmo 264 mOsm/kg (150-1150)
[2021-09-30 07:05] LABS: Osmolality Serum 267 mOsm/kg (275-295)
[2021-09-30 07:10] LABS: Anion Gap 7 mmol/L (2-11)
[2021-09-30] MEDS ORDERED: Magnesium Sulfate IV 3 GM in NS 0.9% 100 ml BAG 100 ML IVPB ONE (08:32)
[2021-09-30] MEDS: Aspirin EC 81 mg TAB.EC (enteric coated) PO SCH (08:47)
[2021-09-30] MEDS: CMC:Epleronone 25 mg TAB (NF) PO SCH (08:49)
[2021-09-30] MEDS ORDERED: Magnesium Sulfate 2 GM IV (Premix) IVPB ONE (09:00)
[2021-09-30 09:11] LABS: Transferrin 284 mg/dL (203-362)
[2021-09-30] MEDS: Mometasone/Formoter 100/5 MDI INH SCH ×2 (09:25→17:34)
[2021-09-30] MEDS ORDERED: Iron Sucrose 200 MG in NS 0.9% 100 ml BAG 100 ML IVPB ONE (09:30)
[2021-09-30 09:31] LABS: Ferritin 14.1 ng/mL (24-336)
[2021-09-30] MEDS ORDERED: Magnesium Sulfate 1 GM IV 1 GM/100 ML BAG IV ONE (10:00)
[2021-09-30] MEDS ORDERED: Perflutren Lipid Microsphere 3 ML VIAL ONE (10:24)
[2021-09-30] MEDS ORDERED: Warfarin - No Order Today **NOTE FOLLOW UP ONE (17:00)
[2021-10-01 06:08] LABS: INR 3.18 (0.86-1.15)
[2021-10-01 06:40] LABS: Calcium 8.1 mg/dL (8.6-10.3); Magnesium 2.3 mg/dL (1.9-2.7); eGFR CKD-EPI 74.2 (>60)
[2021-10-01] MEDS: Mometasone/Formoter 100/5 MDI INH SCH ×2 (08:20→21:04)
[2021-10-01] MEDS: Aspirin EC 81 mg TAB.EC (enteric coated) PO SCH (08:49)
[2021-10-01] MEDS ORDERED: Polyethylene Glycol 3350 17 GM PACKET PO PRN (09:26)
[2021-10-01] MEDS ORDERED: Senna TAB 8.6 mg TAB PO ONE (09:26)
[2021-10-01] MEDS: CMC:Epleronone 25 mg TAB (NF) PO SCH (10:47)
[2021-10-01] MEDS: Magnesium Hydroxide LIQ 30 ML UDC PO PRN ×2 (15:15→22:09)
[2021-10-01] MEDS ORDERED: Magnesium CITRATE LIQ 300 ML BTL PO ONE (16:51)
[2021-10-01] MEDS ORDERED: Warfarin - No Order Today **NOTE FOLLOW UP ONE (17:00)
[2021-10-01] MEDS ORDERED: Furosemide 20 mg/2 ml IV VIAL IV SLOW PU ONE (19:23)
[2021-10-01] MEDS ORDERED: Iron Sucrose 200 MG in NS 0.9% 100 ml BAG 100 ML IVPB ONE (20:30)
[2021-10-01 21:52] LABS: High Sensitivity Troponin 3 Hr 35 pg/mL (<20)
[2021-10-02 00:35] LABS: High Sensitivity Troponin 1 Hr 33 pg/mL (<20)
[2021-10-02 06:00] LABS: INR 2.83 (0.86-1.15)
[2021-10-02 06:31] LABS: Calcium 8.2 mg/dL (8.6-10.3); Magnesium 2.4 mg/dL (1.9-2.7); Potassium 4.5 mmol/L (3.5-5.0); eGFR CKD-EPI 73.3 (>60)
[2021-10-02] MEDS: Mometasone/Formoter 100/5 MDI INH SCH ×2 (07:40→20:40)
[2021-10-02] MEDS: Aspirin EC 81 mg TAB.EC (enteric coated) PO SCH (09:41)
[2021-10-02] MEDS: CMC:Epleronone 25 mg TAB (NF) PO SCH (09:44)
[2021-10-02] MEDS: Warfarin DAILY REMINDER **NOTE FOLLOW UP SCH (18:36)
[2021-10-03] MEDS: Albuterol HFA INHALER 8 gm MDI INH PRN ×4 (03:04→17:57)
[2021-10-03] MEDS: Mometasone/Formoter 100/5 MDI INH SCH ×2 (07:14→20:14)
[2021-10-03 07:22] LABS: INR 2.02 (0.86-1.15)
[2021-10-03] MEDS: Aspirin EC 81 mg TAB.EC (enteric coated) PO SCH (09:26)
[2021-10-03] MEDS: CMC:Epleronone 25 mg TAB (NF) PO SCH (09:27)
[2021-10-03] MEDS: Warfarin DAILY REMINDER **NOTE FOLLOW UP SCH (18:47)
[2021-10-03 22:18] VITALS: BP 101/44
== END 2021-10-03 21:05 | disposition home or self-care (01) | DRG 291 ==
LOC: ED 21:36 → EDHOLD 09-30 02:52 → MEDTELE 09-30 16:01
PROVIDERS: ADMIT Student in an Organized Health Care Education/Training Program; ATTEND Student in an Organized Health Care Education/Training Program

== ENCOUNTER 2021-11-12 19:56 | Inpatient (IN) ==
[2021-11-12 20:59] LABS: ABS Basophils 0.1 10^3/ul (0-0.2); ABS Lymphocytes 3.1 10^3/ul (1.0-4.8); ABS Monocytes 1.5 10^3/ul (0-0.8); ABS Neutrophils 10.3 10^3/ul (1.5-7.7); Eosinophil % 0.1 %; Hematocrit 35 % (42-52); Hemoglobin 11.3 g/dL (14.0-18.0); Lymphocyte % 20.6 %; Mean Corpuscular HGB Conc 32 g/dL (31-36); Mean Corpuscular Hemoglobin 31 pg (27-31); Mean Corpuscular Volume 96 fL (80-94); Mean Platelet Volume 7.6 fL (7.4-10.4); Platelet Count 328 10^3/uL (150-450); Red Blood Count 3.64 10^6 /uL (4.18-5.48); Red Cell Distribution Width 19 % (10-15)
[2021-11-12 21:08] LABS: INR 2.05 (0.89-1.11)
[2021-11-12] MEDS ORDERED: Nitro 2% OINT (Nitroglycerin) 1 INCH/PAK TOPICAL ONE (21:23)
[2021-11-12] MEDS ORDERED: Furosemide 40 mg/4 ml IV VIAL IV SLOW PU ONE (21:23)
[2021-11-12 21:24] LABS: High Sens Troponin Baseline 36 pg/mL (<20)
[2021-11-12 21:37] LABS: ALT 17 U/L (7-52); Albumin 3.4 g/dL (3.2-5.2); Albumin/Globulin Ratio 1.3 (1-3); Alkaline Phosphatase 83 U/L (35-149); Anion Gap 7 mmol/L (2-11); Blood Urea Nitrogen 23 mg/dL (6-24); CO2 Carbon Dioxide 20 mmol/L (22-32); Calcium 8.2 mg/dL (8.6-10.3); Chloride 95 mmol/L (101-111); Globulin 2.7 g/dL (2-4); Glucose 178 mg/dL (70-100); Sodium 122 mmol/L (135-145); Total Protein 6.1 g/dL (6.4-8.9); eGFR CKD-EPI 54.3 (>60)
[2021-11-12] MEDS ORDERED: Remdesivir 100 mg Vial 100 MG in NS 0.9% 250 ml 230 ML IV SCH (22:30)
[2021-11-12] MEDS ORDERED: Fluticasone NASAL SPRAY 50MCG 16 gm SPRAY BTL INTRANASAL PRN (22:32)
[2021-11-12 22:43] LABS: High Sensitivity Troponin 1 Hr 55 pg/mL (<20)
[2021-11-12 22:44] LABS: Potassium Redraw 4.7 mmol/L (3.5-5.0)
[2021-11-12 22:54] LABS: Urine Appearance Clear; Urine Color Yellow
[2021-11-12 22:55] LABS: Urine Bilirubin Negative (Negative); Urine Blood Trace (Intact) (Negative); Urine Glucose 3+ (>=1000 mg/dL) (Negative); Urine Ketones Negative (Negative); Urine Nitrite Negative (Negative); Urine Protein Negative (Negative); Urine Urobilinogen 0.2 (Negative) (Negative); Urine pH 5.5 (5.0-9.0)
[2021-11-12 22:57] LABS: Osmolality Serum 282 mOsm/kg (275-295)
[2021-11-12] MEDS ORDERED: Remdesivir 100 mg Vial 200 MG in NS 0.9% 250 ml 210 ML IV ONE (23:00)
[2021-11-12 23:08] LABS: Urine Bacteria Absent (Absent); Urine Red Blood Cell Trace(0-2/hpf) (Absent); Urine Squamous Epithelial Cell Present (Absent); Urine White Blood Cell Trace(0-5/hpf) (Absent)
[2021-11-12 23:29] LABS: Urine Osmo 640 mOsm/kg (150-1150)
[2021-11-12] MEDS ORDERED: Ondansetron 4 mg VIAL 2 MG/ML 2 ml VIAL ONE (23:42)
[2021-11-12] MEDS ORDERED: Warfarin per PHARMACY **NOTE FOLLOW UP SCH (23:45)
[2021-11-12] MEDS ORDERED: cefTRIAXone 1 gm/50 mL D5W 1 GM/50 ML BAG IV SCH (23:45)
[2021-11-12] MEDS ORDERED: Ondansetron 4 mg VIAL 2 MG/ML 2 ml VIAL IV ONE (23:49)
[2021-11-12] MEDS ORDERED: cefTRIAXone 1 gm/50 mL D5W 1 GM/50 ML BAG IV ONE (23:51)
[2021-11-13] MEDS ORDERED: Furosemide 20 mg/2 ml IV VIAL IV ONE (01:10)
[2021-11-13] MEDS: cefTRIAXone 1 gm/50 mL D5W 1 GM/50 ML BAG IV SCH (02:43)
[2021-11-13 03:01] LABS: Erythrocyte Sed Rate 22 mm/Hr (0-19)
[2021-11-13 05:43] LABS: Hematocrit 37 % (42-52); Mean Corpuscular HGB Conc 33 g/dL (31-36); Mean Corpuscular Hemoglobin 32 pg (27-31); Mean Corpuscular Volume 99 fL (80-94); Mean Platelet Volume 7.4 fL (7.4-10.4); Platelet Count 234 10^3/uL (150-450); Red Blood Count 3.73 10^6 /uL (4.18-5.48); Red Cell Distribution Width 20 % (10-15); White Blood Count 14.4 10^3/uL (3.5-10.8)
[2021-11-13 07:11] LABS: Calcium 8.3 mg/dL (8.6-10.3); Magnesium 1.8 mg/dL (1.9-2.7); Potassium 4.3 mmol/L (3.5-5.0); eGFR CKD-EPI 52.8 (>60)
[2021-11-13] MEDS: Mometasone/Formoter 100/5 MDI INH SCH ×2 (07:18→20:22)
[2021-11-13 07:31] LABS: INR 1.77 (0.89-1.11)
[2021-11-13] MEDS ORDERED: Magnesium Sulfate 2 gm BAG 2 GM/50 ML BAG IVPB ONE (07:33)
[2021-11-13] MEDS ORDERED: Epleronone 25 mg TAB (NF) PO SCH (09:00)
[2021-11-13] MEDS: Aspirin EC 81 mg TAB.EC (enteric coated) PO SCH (09:04)
[2021-11-13] MEDS ORDERED: Furosemide 40 mg/4 ml IV VIAL IV ONE (09:38)
[2021-11-13] MEDS ORDERED: Perflutren Lipid Microsphere 3 ML VIAL ONE (09:40)
[2021-11-13] MEDS: Warfarin DAILY REMINDER **NOTE FOLLOW UP SCH (21:00)
[2021-11-13] MEDS: Remdesivir 100 mg Vial 100 MG in NS 0.9% 250 ml 230 ML IV SCH (21:09)
[2021-11-14] MEDS: cefTRIAXone 1 gm/50 mL D5W 1 GM/50 ML BAG IV SCH (01:54)
[2021-11-14 06:58] LABS: ABS Lymphocytes 0.6 10^3/ul (1.0-4.8); ABS Monocytes 0.6 10^3/ul (0-0.8); ABS Neutrophils 9.3 10^3/ul (1.5-7.7); Hematocrit 30 % (42-52); Hemoglobin 10.4 g/dL (14.0-18.0); Lymphocyte % 5.5 %; Mean Corpuscular HGB Conc 35 g/dL (31-36); Mean Corpuscular Hemoglobin 33 pg (27-31); Mean Corpuscular Volume 95 fL (80-94); Mean Platelet Volume 7.6 fL (7.4-10.4); Platelet Count 257 10^3/uL (150-450); Red Blood Count 3.14 10^6 /uL (4.18-5.48); Red Cell Distribution Width 19 % (10-15); White Blood Count 10.5 10^3/uL (3.5-10.8)
[2021-11-14 07:09] LABS: INR 2.61 (0.89-1.11)
[2021-11-14 07:30] LABS: Calcium 8.2 mg/dL (8.6-10.3); Magnesium 2.2 mg/dL (1.9-2.7); Potassium 3.9 mmol/L (3.5-5.0)
[2021-11-14] MEDS: Mometasone/Formoter 100/5 MDI INH SCH ×2 (07:32→20:00)
[2021-11-14 07:35] LABS: Phosphorus 4.9 mg/dL (2.5-5.0); eGFR CKD-EPI 72.4 (>60)
[2021-11-14] MEDS: Aspirin EC 81 mg TAB.EC (enteric coated) PO SCH (09:50)
[2021-11-14] MEDS: Remdesivir 100 mg Vial 100 MG in NS 0.9% 250 ml 230 ML IV SCH (21:55)
[2021-11-14] MEDS: Warfarin DAILY REMINDER **NOTE FOLLOW UP SCH (22:05)
[2021-11-15] MEDS: cefTRIAXone 1 gm/50 mL D5W 1 GM/50 ML BAG IV SCH (02:31)
[2021-11-15] MEDS: Senna TAB 8.6 mg TAB PO PRN ×3 (02:31→22:27)
[2021-11-15 07:00] LABS: ABS Lymphocytes 0.8 10^3/ul (1.0-4.8); ABS Monocytes 0.7 10^3/ul (0-0.8); ABS Neutrophils 9.6 10^3/ul (1.5-7.7); Hematocrit 30 % (42-52); Hemoglobin 10.1 g/dL (14.0-18.0); Lymphocyte % 6.9 %; Mean Corpuscular HGB Conc 34 g/dL (31-36); Mean Corpuscular Hemoglobin 33 pg (27-31); Mean Corpuscular Volume 96 fL (80-94); Mean Platelet Volume 7.7 fL (7.4-10.4); Platelet Count 285 10^3/uL (150-450); Red Blood Count 3.08 10^6 /uL (4.18-5.48); Red Cell Distribution Width 19 % (10-15); White Blood Count 11.1 10^3/uL (3.5-10.8)
[2021-11-15 07:08] LABS: Anion Gap 5 mmol/L (2-11); Blood Urea Nitrogen 27 mg/dL (6-24); CO2 Carbon Dioxide 28 mmol/L (22-32); Chloride 98 mmol/L (101-111); Glucose 103 mg/dL (70-100); Magnesium 2.2 mg/dL (1.9-2.7); Potassium 4.3 mmol/L (3.5-5.0); Sodium 131 mmol/L (135-145); eGFR CKD-EPI 86.1 (>60)
[2021-11-15 07:14] LABS: INR 2.52 (0.89-1.11)
[2021-11-15] MEDS: Mometasone/Formoter 100/5 MDI INH SCH ×2 (08:01→19:18)
[2021-11-15] MEDS: Aspirin EC 81 mg TAB.EC (enteric coated) PO SCH (09:27)
[2021-11-15] MEDS ORDERED: Furosemide 40 mg/4 ml IV VIAL IV ONE (10:22)
[2021-11-15] MEDS: Albuterol HFA INHALER 8 gm MDI INH PRN (11:10)
[2021-11-15 11:37] LABS: Total Iron Binding Capacity 260 mcg/dL (250-450); Transferrin 186 mg/dL (203-362)
[2021-11-15 11:53] LABS: % Iron Saturation 8 % (15-55); Iron < 20 ug/dL (50-212); Unsaturated Iron Binding 240 ug/dL
[2021-11-15] MEDS ORDERED: Iron Sucrose 200 MG in NS 0.9% 100 ml BAG 100 ML IVPB ONE (14:00)
[2021-11-15] MEDS ORDERED: Magnesium Hydroxide LIQ 30 ML UDC PO PRN (15:49)
[2021-11-15] MEDS: Warfarin DAILY REMINDER **NOTE FOLLOW UP SCH (17:40)
[2021-11-15] MEDS: Remdesivir 100 mg Vial 100 MG in NS 0.9% 250 ml 230 ML IV SCH (22:27)
[2021-11-16] MEDS: cefTRIAXone 1 gm/50 mL D5W 1 GM/50 ML BAG IV SCH (02:19)
[2021-11-16 05:39] LABS: ABS Lymphocytes 0.7 10^3/ul (1.0-4.8); ABS Monocytes 0.8 10^3/ul (0-0.8); ABS Neutrophils 8.9 10^3/ul (1.5-7.7); Hematocrit 30 % (42-52); Lymphocyte % 6.6 %; Mean Corpuscular HGB Conc 34 g/dL (31-36); Mean Corpuscular Hemoglobin 32 pg (27-31); Mean Corpuscular Volume 95 fL (80-94); Mean Platelet Volume 7.5 fL (7.4-10.4); Platelet Count 308 10^3/uL (150-450); Red Blood Count 3.16 10^6 /uL (4.18-5.48); Red Cell Distribution Width 19 % (10-15); White Blood Count 10.4 10^3/uL (3.5-10.8)
[2021-11-16 05:44] LABS: INR 2.78 (0.89-1.11)
[2021-11-16 05:58] LABS: Anion Gap 5 mmol/L (2-11); Blood Urea Nitrogen 31 mg/dL (6-24); CO2 Carbon Dioxide 32 mmol/L (22-32); Calcium 7.9 mg/dL (8.6-10.3); Chloride 94 mmol/L (101-111); Glucose 119 mg/dL (70-100); Magnesium 2.3 mg/dL (1.9-2.7); Potassium 4.3 mmol/L (3.5-5.0); Sodium 131 mmol/L (135-145)
[2021-11-16] MEDS: Mometasone/Formoter 100/5 MDI INH SCH ×2 (08:22→19:08)
[2021-11-16 08:32] LABS: Folate 5.51 ng/mL (5.90-24.80); Vitamin B12 > 1450 pg/mL (180-914)
[2021-11-16] MEDS: Polyethylene Glycol 3350 17 GM PACKET PO SCH (09:27)
[2021-11-16] MEDS: Aspirin EC 81 mg TAB.EC (enteric coated) PO SCH (09:27)
[2021-11-16] MEDS: Iron Sucrose 200 MG in NS 0.9% 100 ml BAG 100 ML IVPB SCH (09:37)
[2021-11-16] MEDS: Albuterol HFA INHALER 8 gm MDI INH PRN (15:15)
[2021-11-16] MEDS: Warfarin DAILY REMINDER **NOTE FOLLOW UP SCH (16:56)
[2021-11-16] MEDS: Remdesivir 100 mg Vial 100 MG in NS 0.9% 250 ml 230 ML IV SCH (20:40)
[2021-11-16] MEDS ORDERED: Furosemide 40 mg/4 ml IV VIAL IV ONE (23:10)
[2021-11-17] MEDS ORDERED: Furosemide 20 mg/2 ml IV VIAL IV ONE (00:21)
[2021-11-17] MEDS: cefTRIAXone 1 gm/50 mL D5W 1 GM/50 ML BAG IV SCH (01:24)
[2021-11-17 06:29] LABS: INR 2.66 (0.89-1.11)
[2021-11-17 06:34] LABS: Albumin 2.8 g/dL (3.2-5.2); Calcium 8.2 mg/dL (8.6-10.3); Magnesium 2.3 mg/dL (1.9-2.7); Potassium 4.5 mmol/L (3.5-5.0); Total Bilirubin 0.5 mg/dL (0.2-1.0)
[2021-11-17 06:40] LABS: Albumin/Globulin Ratio 1.5 (1-3); Globulin 1.9 g/dL (2-4); Total Protein 4.7 g/dL (6.4-8.9)
[2021-11-17] MEDS: Mometasone/Formoter 100/5 MDI INH SCH ×2 (06:58→19:40)
[2021-11-17] MEDS: Albuterol HFA INHALER 8 gm MDI INH PRN (06:59)
[2021-11-17 07:02] LABS: Hematocrit 34 % (42-52); Mean Corpuscular HGB Conc 33 g/dL (31-36); Mean Corpuscular Hemoglobin 31 pg (27-31); Mean Corpuscular Volume 95 fL (80-94); Platelet Count 241 10^3/uL (150-450); Red Blood Count 3.54 10^6 /uL (4.18-5.48); Red Cell Distribution Width 19 % (10-15); White Blood Count 10.9 10^3/uL (3.5-10.8)
[2021-11-17] MEDS: Polyethylene Glycol 3350 17 GM PACKET PO SCH (11:02)
[2021-11-17] MEDS: Aspirin EC 81 mg TAB.EC (enteric coated) PO SCH (11:04)
[2021-11-17] MEDS: Iron Sucrose 200 MG in NS 0.9% 100 ml BAG 100 ML IVPB SCH (11:46)
[2021-11-17] MEDS: Warfarin DAILY REMINDER **NOTE FOLLOW UP SCH (18:34)
[2021-11-18] MEDS: cefTRIAXone 1 gm/50 mL D5W 1 GM/50 ML BAG IV SCH (01:23)
[2021-11-18 06:21] LABS: Hematocrit 32 % (42-52); Hemoglobin 10.7 g/dL (14.0-18.0); Mean Corpuscular HGB Conc 34 g/dL (31-36); Mean Corpuscular Hemoglobin 32 pg (27-31); Mean Corpuscular Volume 96 fL (80-94); Mean Platelet Volume 7.5 fL (7.4-10.4); Platelet Count 335 10^3/uL (150-450); Red Blood Count 3.31 10^6 /uL (4.18-5.48); Red Cell Distribution Width 19 % (10-15); White Blood Count 9.9 10^3/uL (3.5-10.8)
[2021-11-18 06:26] LABS: INR 2.96 (0.89-1.11)
[2021-11-18 06:40] LABS: Albumin 2.7 g/dL (3.2-5.2); Albumin/Globulin Ratio 1.5 (1-3); Calcium 8.3 mg/dL (8.6-10.3); Globulin 1.8 g/dL (2-4); Magnesium 2.2 mg/dL (1.9-2.7); Potassium 3.8 mmol/L (3.5-5.0); Total Bilirubin 0.6 mg/dL (0.2-1.0); Total Protein 4.5 g/dL (6.4-8.9); eGFR CKD-EPI 83.9 (>60)
[2021-11-18] MEDS: Mometasone/Formoter 100/5 MDI INH SCH ×2 (08:26→19:42)
[2021-11-18] MEDS: Polyethylene Glycol 3350 17 GM PACKET PO SCH (09:53)
[2021-11-18] MEDS: Aspirin EC 81 mg TAB.EC (enteric coated) PO SCH (09:54)
[2021-11-18] MEDS ORDERED: Potassium Chlor 20 meq TAB.ER PO ONE (11:39)
[2021-11-18 17:35] LABS: Calcium 8.7 mg/dL (8.6-10.3); Magnesium 2.3 mg/dL (1.9-2.7); Potassium 4.2 mmol/L (3.5-5.0)
[2021-11-18] MEDS: CMCS: Epleronone 25 mg TAB (NF) PO SCH (21:38)
[2021-11-19] MEDS: Albuterol HFA INHALER 8 gm MDI INH PRN (06:00)
[2021-11-19 06:50] LABS: Hematocrit 33 % (42-52); Hemoglobin 10.7 g/dL (14.0-18.0); Mean Corpuscular HGB Conc 32 g/dL (31-36); Mean Corpuscular Hemoglobin 31 pg (27-31); Mean Corpuscular Volume 95 fL (80-94); Mean Platelet Volume 7.6 fL (7.4-10.4); Platelet Count 462 10^3/uL (150-450); Red Blood Count 3.47 10^6 /uL (4.18-5.48); Red Cell Distribution Width 19 % (10-15)
[2021-11-19 07:01] LABS: INR 2.52 (0.89-1.11)
[2021-11-19 07:26] LABS: Calcium 8.8 mg/dL (8.6-10.3); Magnesium 2.2 mg/dL (1.9-2.7); Potassium 4.5 mmol/L (3.5-5.0)
[2021-11-19] MEDS: Mometasone/Formoter 100/5 MDI INH SCH (07:39)
[2021-11-19] MEDS: Polyethylene Glycol 3350 17 GM PACKET PO SCH (09:27)
[2021-11-19] MEDS: CMCS: Epleronone 25 mg TAB (NF) PO SCH (09:28)
[2021-11-19] MEDS: Aspirin EC 81 mg TAB.EC (enteric coated) PO SCH (09:28)
[2021-11-19 11:14] VITALS: BP 105/44
== END 2021-11-19 14:50 | DRG 177 ==
LOC: ED 19:56 → SUATTDRO 22:18 → EDHOLD 22:18 → MED 11-13 00:57
PROVIDERS: ADMIT Student in an Organized Health Care Education/Training Program; ATTEND Student in an Organized Health Care Education/Training Program